=== PATIENT | female | born 1960 | race Caucasian/White ===

== ENCOUNTER 2021-05-17 06:55 | Day surgery (SDC) | payer OTHER, SELFPAY ==
[2021-05-11 12:23] VITALS: BMI 31.2
--- NOTE | 2021-05-16 13:56 | HO.ANESPROP2 ---
Documented by User: Ericka Long NP 05/16/21 13:57 HPI - Anesthesia Eval Consult details Narrative: 60yo F for Colonoscopy [facility] Past Medical History Medical History (Updated 05/11/21 @ 12:25 by Zulay Nur RN) Arthritis Asthma COPD (chronic obstructive pulmonary disease) COVID-19 vaccine series completed Post-operative nausea and vomiting Surgical History Surgical History (Updated 05/11/21 @ 12:20 by Zulay Nur RN) H/O colonoscopy History of total left hip replacement Hx of foot surgery Hx of hysterectomy Social History Social History Are you a primary healthcare administrative assistant to a significant other at home: No Do you presently have visiting nurse or other home services: No Patient Tobacco Use Status: Former Tobacco user Quit Date: 2011 Tobacco use type: Cigarette Use of substances other than those prescribed or required for medical reasons: No Have you been hit, kicked, punched, or otherwise hurt by someone within the past year? If so, by whom?: No Are you DNR?: No Advance Directives Information Provided: Yes (informational brochure mailed) Advance Directives on File: No Recently lost weight without trying: No Nutrition Risks: No Nutritional Risk Poor oral hygiene: No (missing tooth-upper right molar) Meds Allergies Allergy/AdvReac Type Severity Reaction Status Date / Time Seasonal Allergies Allergy Intermediate Itchy Eyes Verified 05/11/21 12:22 shellfish derived Allergy Intermediate HIVES Verified 05/17/21 07:08 [SHELLFISH DERIVED] cat dander [CAT] Allergy Mild PRURITUS, Verified 05/17/21 07:08 SNEEZING fluticasone [Advair Diskus] AdvReac Intermediate powder Verified 05/11/21 12:22 inhalers cause choking salmeterol [Advair Diskus] AdvReac Intermediate powder Verified 05/11/21 12:22 inhalers cause choking wixela AdvReac Intermediate powder Uncoded 05/11/21 12:22 inhalers cause choking Exam Exam Date and Time: May 16, 2021 1356 Height,Weight and Vital Signs: Height 5 ft 1.5 in Weight 76.204 kg Assessment and Plan Assessment Anesthesia Assessment: Chart Reviewed Documented by User: Emily Carmichael MD 05/17/21 08:50 PMFSH Past Medical History Medical History (Updated 05/11/21 @ 12:25 by Zulay Nur, ERIC) Arthritis Asthma COPD (chronic obstructive pulmonary disease) COVID-19 vaccine series completed Post-operative nausea and vomiting Family History Family history of problems with anesthesia: No Surgical History Surgical History (Updated 05/11/21 @ 12:20 by Zulay Nur RN) H/O colonoscopy History of total left hip replacement Hx of foot surgery Hx of hysterectomy History of Problems with Anesthesia: Yes (PONV with Hysterectomy) Social History Social History Are you a primary healthcare administrative assistant to a significant other at home: No Do you presently have visiting nurse or other home services: No Patient Tobacco Use Status: Former Tobacco user Quit Date: 2011 Tobacco use type: Cigarette Use of substances other than those prescribed or required for medical reasons: No Have you been hit, kicked, punched, or otherwise hurt by someone within the past year? If so, by whom?: No Are you DNR?: No Advance Directives Information Provided: Yes (informational brochure mailed) Advance Directives on File: No Recently lost weight without trying: No Nutrition Risks: No Nutritional Risk Poor oral hygiene: No (missing tooth-upper right molar) Meds Allergies Allergy/AdvReac Type Severity Reaction Status Date / Time Seasonal Allergies Allergy Intermediate Itchy Eyes Verified 05/11/21 12:22 shellfish derived Allergy Intermediate HIVES Verified 05/17/21 07:08 [SHELLFISH DERIVED] cat dander [CAT] Allergy Mild PRURITUS, Verified 05/17/21 07:08 SNEEZING fluticasone [Advair Diskus] AdvReac Intermediate powder Verified 05/11/21 12:22 inhalers cause choking salmeterol [Advair Diskus] AdvReac Intermediate powder Verified 05/11/21 12:22 inhalers cause choking wixela AdvReac Intermediate powder Uncoded 05/11/21 12:22 inhalers cause choking Exam Height,Weight and Vital Signs: Height 5 ft 1.5 in Weight 76.204 kg Vital Signs Temp Pulse Resp BP Pulse Ox 97.7 F 85 18 142/87 H 94 05/17/21 07:20 05/17/21 07:20 05/17/21 07:20 05/17/21 07:20 05/17/21 07:20 Airway Mallampati Class: II TM Dist: >3cm Neck ROM: Full Loose/Missing/Broken Teeth: Yes (Missing one) Heart: RRR Lungs: CTAB Assessment and Plan Assessment Anesthesia Assessment: Anesthesia Plan Discussed Final Anesthetic Review Family History of Problems with Anesthesia: No History of Problems with Anesthesia: Yes (PONV with Hysterectomy) NPO: Yes ASA Class: II Final Preanesthetic Review: No Changes in Pt Med Stat, Meds/Allgs Chart Reviewed, Consent Obtained/Reviewed and Anes Risks/Benef Reviewed Patient Risk: Low Procedure Risk: Low Assessment/Block/Sedation in SS: Assess/Block/Sedation-SS Anesthetic Plan Anesthetic Plan: MAC: Disposition: Standard PACU
--- NOTE | 2021-05-17 07:18 | PC.NURSE ---
called for a resp treatment exp wheezing throughout. patient also stated she had epigastric pain last week and yesterday. none this am. patient states she drinks water and takes tums and it goes away. had a stress test in the past for it with no problems.
[2021-05-17 07:20] VITALS: BP 142/87; PULSE 85; RESP 18; TEMP 36.5; O2SAT 94
[2021-05-17] MEDS: Albuterol Sulfate (0.083%) 2.5 MG/3 ML VIAL.NEB INHALE (07:26)
--- NOTE | 2021-05-17 07:27 | PC.NURSE ---
receiving resp treatment
[2021-05-17 07:28] VITALS: PULSE 83; O2SAT 97
[2021-05-17] MEDS: Lactated Ringers 1,000 ML 100 ML IVCONT (07:40)
--- NOTE | 2021-05-17 08:16 | MHC.SHP ---
Pre-Procedural Eval Section A Date of Service: 05/17/21 Section B Chief Complaint: screening Details of Present Illness: screening Relevant Family History (Specify if Yes): No Relevant Social History: None Present Medications: see Short Stay Collaborative assessment Medical History: No relevant PMH History of Previous Operations: No relevant previous surgery Allergies: Allergies Allergy/AdvReac Type Severity Reaction Status Date / Time Seasonal Allergies Allergy Intermediate Itchy Eyes Verified 05/11/21 12:22 shellfish derived Allergy Intermediate HIVES Verified 05/17/21 07:08 [SHELLFISH DERIVED] cat dander [CAT] Allergy Mild PRURITUS, Verified 05/17/21 07:08 SNEEZING fluticasone [Advair Diskus] AdvReac Intermediate powder Verified 05/11/21 12:22 inhalers cause choking salmeterol [Advair Diskus] AdvReac Intermediate powder Verified 05/11/21 12:22 inhalers cause choking wixela AdvReac Intermediate powder Uncoded 05/11/21 12:22 inhalers cause choking Review of Systems Sugical H&P ROS: Negative: Constitution, Cardiovascular, Respiratory, Neurological, Psychiatric, Hem-Onc, Allergic/Immunologic, Gastrointestinal, Genitourinary, Musculoskeletal, Integumentary, Endocrine and Eyes/Ears/Nose/Throat Exam Surgical H&P Exam: Normal: HEENT Plan Diagnosis/Plan: Unchanged I have reviewed the history and physical and performed a pertinent physical examination on my patient. No changes have occurred unless specified.
[2021-05-17 08:46] VITALS: BP 109/60; PULSE 91; RESP 15; TEMP 36.2; O2SAT 95
[2021-05-17 09:01] VITALS: BP 112/78; PULSE 75; RESP 17; TEMP 36.2; O2SAT 95
--- NOTE | 2021-05-17 11:41 | OP_ITS ---
SURGEON: Carlos Alexis MD INDICATIONS: Colon cancer screening and prior history of adenomatous colon polyps. PREOPERATIVE DIAGNOSIS: POSTOPERATIVE DIAGNOSIS: PROCEDURE PERFORMED: Colonoscopy to the terminal ileum with biopsy. ESTIMATED BLOOD LOSS: COMPLICATIONS: ANESTHESIA: ASSISTANTS: SPECIMENS: MEDICATIONS: Monitored anesthesia care. DESCRIPTION OF PROCEDURE: History and physical performed. The risks and benefits of the procedure were explained to the patient. Informed consent was obtained. The patient was placed in the left lateral decubitus position. A digital rectal exam was performed and was found to be normal. The Olympus pediatric video colonoscope was introduced into the rectum and advanced to the cecum without difficulty. The cecum was identified by transillumination, palpation, and identification of ileocecal valve. Examination was performed and the scope was removed. She tolerated the procedure well and was taken to recovery area in stable condition. FINDINGS: The terminal ileum was examined and appeared normal. The visualized colonic mucosa was normal. The quality of the prep was good. At 80 cm from the anal verge, was a less than 5 mm sessile polyp. This was removed with biopsy forceps. No other polyps were identified. Retroflexed examination showed some internal hemorrhoids. IMPRESSION: Colon polyp. RECOMMENDATION: Follow up the biopsy results. MD ALYCIA Rowe/MARY JANE / [id number]
== END 2021-05-17 09:45 | disposition home or self-care (01) ==
PROVIDERS: PCP Internal Medicine; Visit Provider Internal Medicine Gastroenterology
PROC: 0DJD8ZZ Inspection of Lower Intestinal Tract, Via Natural or Artificial Opening Endoscopic (ICD-10-PCS; CPT 45378; principal; 2021-05-17 08:20)
DX: Z12.11 Encounter for screening for malignant neoplasm of colon (principal); Z86.010 Personal history of colon polyps; D12.4 Benign neoplasm of descending colon; K64.8 Other hemorrhoids; J44.9 Chronic obstructive pulmonary disease, unspecified; Z87.891 Personal history of nicotine dependence; Z79.899 Other long term (current) drug therapy
CPT/HCPCS: 45380; 88305; 94640

== ENCOUNTER 2021-12-05 06:35 | Outpatient (REF) | payer OTHER, SELFPAY ==
[2021-12-05 11:12] LABS: MANUAL DIFF FLAG NO
[2021-12-05 11:20] LABS: Basophils Absolute Auto 0.1 X10*3/uL (0.0-0.2); Eosinophils Absolute Auto 0.8 X10*3/uL (0.0-0.4); Hematocrit 46.7 % (37.0-47.0); Hemoglobin 14.7 g/dl (12.0-16.0); Imm Gran Abs Auto 0.02 X10*3/uL (0.00-0.03); Imm Gran Pct Auto 0.3 % (0.0-0.4); Lymphocytes Absolute Auto 2.2 X10*3/uL (1.2-4.9); Mean Corpuscular HGB Conc 31.5 g/dl (31.0-35.0); Mean Corpuscular Hemoglobin 29.7 pg (27.0-33.0); Mean Corpuscular Volume 94.3 fL (80.0-98.0); Mean Platelet Volume 9.8 fL (9.4-12.3); Monocytes Absolute Auto 0.5 X10*3/uL (0.1-1.2); Monocytes Percent Auto 7.4 % (2-11); Neutrophils Absolute Auto 3.3 x10*3/uL (2.0-8.3); Neutrophils Percent Auto 48.3 % (45-73); Platelet Count 316 X10*3/uL (160-400); Red Blood Count 4.95 X10*6/uL (4.20-5.50); White Blood Count 6.9 X10*3/uL (4.8-10.8)
[2021-12-05 12:10] LABS: Alanine Aminotransferase 30 U/L (0-31); Alkaline Phosphatase 53 U/L (39-117); Anion Gap 15 (12-20); Aspartate Amino Transferase 20 U/L (5-31); Bilirubin Total 0.2 mg/dL (0.0-1.0); Blood Urea Nitrogen 12 mg/dL (9-16); Calcium 9.2 mg/dL (8.4-10.2); Carbon Dioxide 26 mmol/L (22-29); Chloride 105 mmol/L (96-108); Cholesterol 181 mg/dL; Estimated Glomerular Filt Rate > 60; Glucose Fasting 100 mg/dL (60-99); HDL Cholesterol 55 mg/dL; LDL Cholesterol Calculated 104 mg/dl; Potassium 4.3 mmol/L (3.3-5.1); Sodium 142 mmol/L (135-145); Total Protein 6.6 g/dL (6.5-8.0); Triglycerides 114 mg/dL
== END 2021-12-05 06:36 | disposition home or self-care (01) ==
LOC: HO.HMGCLDS 06:35
PROVIDERS: Visit Provider Internal Medicine
DX: Z00.01 Encounter for general adult medical examination with abnormal findings (principal); E66.09 Other obesity due to excess calories; R06.89 Other abnormalities of breathing; Z91.09 Other allergy status, other than to drugs and biological substances
CPT/HCPCS: 36415; 80053; 80061; 84443; 85025

== ENCOUNTER 2022-06-28 11:53 | Outpatient (REF) | payer OTHER, SELFPAY ==
--- NOTE | ~2022-06-28 | XR_ITS ---
EXAMINATION: XR CHEST CLINICAL INFORMATION: Wheezing COMPARISON: Previous chest x-ray July 2018 TECHNIQUE: 2 views of the chest were obtained. FINDINGS: No significant abnormality is noted involving the heart, lungs, mediastinum, bony thorax or soft tissues. XR/XR chest 2V IMPRESSION: Unremarkable examination.
== END 2022-06-28 11:54 | disposition home or self-care (01) ==
LOC: HO.HMGCX 11:53
PROVIDERS: PCP Internal Medicine; Visit Provider Internal Medicine
DX: R06.2 Wheezing (principal)
CPT/HCPCS: 71046

== ENCOUNTER 2022-09-18 06:02 | Inpatient (IN) | payer OTHER, SELFPAY ==
[2022-09-18] VITALS (12 sets, daily range): BP systolic 124–173; BP diastolic 62–90; PULSE 70–122; RESP 18–26; TEMP 36.6–37.6; O2SAT 86–97; BMI 30.2
--- NOTE | 2022-09-18 | ECG_ITS ---
Test Reason : ASTHMA Blood Pressure : / mmHG Vent. Rate : 105 BPM Atrial Rate : 105 BPM P-R Int : 140 ms QRS Dur : 080 ms QT Int : 340 ms P-R-T Axes : 077 076 024 degrees QTc Int : 449 ms Sinus tachycardia Nonspecific ST and T wave abnormality Abnormal ECG When compared with ECG of 08-OCT-2017 12:28, Vent. rate has increased BY [address] now depressed in Inferior leads ST now depressed in Anterior leads Referred By: Generic ED Physician Electronically Signed By:JONAS SHEARER
--- NOTE | ~2022-09-18 | XR_ITS ---
EXAMINATION: XR CHEST CLINICAL INFORMATION: Shortness of breath COMPARISON: 06/28/2022 TECHNIQUE: Frontal view of the chest was obtained. FINDINGS: No acute finding. No obvious failure or infiltrate. There is no effusion. The cardiac silhouette is comparable. The hilar regions do not appear pathologically enlarged. XR/XR chest 1V IMPRESSION: No acute finding.
--- NOTE | 2022-09-18 06:18 | ED_ITS ---
HPI - SOB/Dyspnea General Chief Complaint: Dyspnea Stated Complaint: sob Time Seen by Provider: 09/18/22 06:17 Source: patient Mode of arrival: EMS History of Present Illness HPI Narrative: 61-year-old female arrives via EMS, she received nebulized treatments/steroids/Mag sulfate and route and states that she is been having ?flu-like symptoms for 1 week? and then became worsening shortness of breath over the past 24 hours and feel somewhat improved after the interventions by EMS and feels like she may have been having intermittent fevers and chills and has had a productive cough otherwise denies any nausea or vomiting or urinary sym ptoms. Related Data Previous Rx's Medication Instructions Recorded cholecalciferol (vitamin D3) 25 25 mcg PO DAILY #90 caps 08/17/20 mcg (1,000 unit) capsule albuterol sulfate 90 mcg/actuation 1 inh inhalation QID PRN shortness 09/21/21 aerosol inhaler of breath or wheezing #6.7 grams cetirizine 10 mg tablet (Zyrtec) 10 mg PO DAILY 90 days #90 tabs 12/02/21 azithromycin 250 mg tablet 250 mg PO ONCE 5 days #6 tabs 12/23/21 Symbicort 160 mcg-4.5 2 puff inhalation BID 30 days 06/28/22 mcg/actuation HFA aerosol inhaler #10.2 grams (budesonide-formoterol) albuterol sulfate 90 mcg/actuation 1 inh inhalation QID PRN shortness 06/30/22 aerosol inhaler (Ventolin HFA) of breath or wheezing 30 days #6.7 grams Allergies Allergy/AdvReac Type Severity Reaction Status Date / Time Seasonal Allergies Allergy Intermediate Itchy Eyes Verified 06/28/22 11:35 shellfish derived Allergy Intermediate HIVES Verified 06/28/22 11:35 [SHELLFISH DERIVED] cat dander [CAT] Allergy Mild PRURITUS, Verified 06/28/22 11:35 SNEEZING fluticasone [Advair Diskus] AdvReac Intermediate powder Verified 06/28/22 11:35 inhalers cause choking salmeterol [Advair Diskus] AdvReac Intermediate powder Verified 06/28/22 11:35 inhalers cause choking wixela AdvReac Intermediate powder Uncoded 09/21/21 16:15 inhalers cause choking Review of Systems Review of Systems: Pertinent positives and negatives as stated in [facility] Past Medical History Source: nursing notes reviewed Medical History Arthritis Asthma COPD (chronic obstructive pulmonary disease) COVID-19 vaccine series completed Post-operative nausea and vomiting Surgical History H/O colonoscopy History of total left hip replacement Hx of foot surgery Hx of hysterectomy Family History Family History Maternal Aunt Substance use disorder Mental health disorder Social History Social History Housing: House Are you a primary team primary care physician to a significant other at home: No Do you presently have visiting nurse or other home services: No Patient Tobacco Use Status: Former Tobacco user Quit Date: 2011 Tobacco use type: Cigarette e-Cigarette/Vaping Use: Never Used service: No Current occupational status: unemployed Cognitive needs: No Hearing needs: No Vision needs: Yes Physical Exam Vital Signs: Vital Signs: Last Vital Signs Temp 98.5 F 09/18/22 06:06 Pulse 115 H 09/18/22 06:06 Resp 22 H 09/18/22 06:06 BP 141/78 H 09/18/22 06:06 Pulse Ox 91 L 09/18/22 06:06 O2 Del Method 09/18/22 06:06 Oxygen Flow Rate 4 09/18/22 06:06 BMI result Body Mass Index 30.2 VITAL SIGNS: Reviewed. GENERAL: Well developed, well nourished, in no acute distress. HEAD: Normocephalic/atraumatic EYES: PERRLA, EOMI EARS: Ext canals without abnormality, TMs non-bulging and non-erythematous NOSE: Nares patent bilateral OROPHARYNX: no oral lesions noted, posterior pharynx clear NECK: Supple, no adenopathy LUNGS: Good inspiratory effort with decreased breath sounds throughout, crackles, tachypnea, expiratory wheeze, increased work of breathing. SpO2<91> on 6 L nasal cannula CARDIOVASCULAR: Regular rate and rhythm without noted murmurs, no JVD or lower extremity edema. ABDOMEN: Soft, non-tender, non-distended with bowel sounds. MUSCULOSKELETAL: No tenderness, deformities, or effusions noted on gross inspection. EXTREMITIES: No cyanosis, clubbing or edema. SKIN: Inspection of the skin reveals no rashes NEUROLOGIC: Alert and oriented x 4. Strength and sensation to light touch were grossly intact x 4. Medical Decision Making Medical Decision Making [facility] Narrative: 0628: 61-year-old female that on review documentation it appears that this patient has chronic lung disease, will rule out pneumonia verses viral pneumonia, and doubt cardiac etiology. Labs, blood cultures, UA, chest x-ray, VBG ordered. Signed out to Dr Panchal Independent Interpretation I performed an independent interpretation of an: EKG Interpretation: Sinus tachycardia, HR-105, no STEMI, some nonspecific ST-T-wave abnormalities in the lateral leads, CT/QRS/QTC is within normal limits. Critical Care Time Critical Care Time Critical Care Time: Yes Total Critical Care Time: 30 Attestation: I personally attest to this time spent taking care of the patient. Discharge Plan Discharge Clinical Impression: Shortness of breath Patient Disposition: Still a Patient Prescriptions: No Action cholecalciferol (vitamin D3) 25 mcg (1,000 unit) capsule 25 mcg PO DAILY Qty: 90 0RF albuterol sulfate [Ventolin HFA] 90 mcg/actuation HFA aerosol inhaler 1 inh inhalation QID PRN (Reason: shortness of breath or wheezing) 30 Days Qt y: 6.7 3RF azithromycin 250 mg tablet 250 mg PO ONCE 5 Days Qty: 6 0RF Rx Instructions: Take 2 tablets today then 1 daily budesonide-formoterol [Symbicort] 160-4.5 mcg/actuation HFA aerosol inhaler 2 puff inhalation BID 30 Days Qty: 10.2 3RF albuterol sulfate 90 mcg/actuation HFA aerosol inhaler 1 inh inhalation QID PRN (Reason: shortness of breath or wheezing) Qty: 6.7 1RF cetirizine [Zyrtec] 10 mg tablet 10 mg PO DAILY 90 Days Qty: 90 1RF
[2022-09-18 06:34] LABS: MANUAL DIFF FLAG NO
[2022-09-18 06:35] LABS: Basophils Absolute Auto 0.1 X10*3/uL (0.0-0.2); Basophils Percent Auto 0.4 % (0-2); Eosinophils Absolute Auto 0.2 X10*3/uL (0.0-0.4); Eosinophils Percent Auto 1.4 % (0-4); Hematocrit 50.2 % (37.0-47.0); Hemoglobin 16.5 g/dl (12.0-16.0); Imm Gran Abs Auto 0.06 X10*3/uL (0.00-0.03); Imm Gran Pct Auto 0.4 % (0.0-0.4); Lymphocytes Absolute Auto 1.9 X10*3/uL (1.2-4.9); Lymphocytes Percent Auto 12.7 % (20-40); Mean Corpuscular HGB Conc 32.9 g/dl (31.0-35.0); Mean Corpuscular Hemoglobin 31.2 pg (27.0-33.0); Mean Corpuscular Volume 94.9 fL (80.0-98.0); Mean Platelet Volume 9.5 fL (9.4-12.3); Monocytes Absolute Auto 0.7 X10*3/uL (0.1-1.2); Monocytes Percent Auto 4.5 % (2-11); Neutrophils Absolute Auto 12.3 x10*3/uL (2.0-8.3); Neutrophils Percent Auto 80.6 % (45-73); Platelet Count 255 X10*3/uL (160-400); Red Blood Count 5.29 X10*6/uL (4.20-5.50); Red Cell Distribution Width 13.2 % (11.0-16.0); White Blood Count 15.3 X10*3/uL (4.8-10.8)
[2022-09-18 06:38] LABS: Venous Blood Gas Refer to POC result
[2022-09-18 06:38] LABS: VBG HCO3 24 mmol/L (22-26); VBG pCO2 42 mmHg; VBG pH 7.36 (7.32-7.43); VBG pO2 52 mmHg
[2022-09-18 06:59] LABS: Troponin-I High Sensitivity 3.7 ng/L (<3.5-17.0)
[2022-09-18 07:03] LABS: Alanine Aminotransferase 25 U/L (0-31); Albumin Level 4.7 g/dL (3.5-5.0); Alkaline Phosphatase 54 U/L (39-117); Anion Gap 17 (12-20); Aspartate Amino Transferase 20 U/L (5-31); Bilirubin Total 0.9 mg/dL (0.0-1.0); Blood Urea Nitrogen 6 mg/dL (9-16); Calcium 9.5 mg/dL (8.4-10.2); Carbon Dioxide 26 mmol/L (22-29); Chloride 106 mmol/L (96-108); Creatinine Clr Calc Pharmacy 75.6; Estimated Glomerular Filt Rate > 60; Glucose Random 142 mg/dL (60-115); Potassium 4.2 mmol/L (3.3-5.1); Sodium 145 mmol/L (135-145); Total Protein 7.2 g/dL (6.5-8.0)
[2022-09-18 07:12] LABS: Influenza A PCR NEGATIVE (Negative); Influenza B PCR NEGATIVE (Negative); Resp Syncy Virus RNA Qual PCR NEGATIVE (Negative); SARS COV2 PCR INHOUSE NEGATIVE (Negative)
--- NOTE | 2022-09-18 07:19 | PC.NURSE ---
pt alert and oriented, skin pwd, respirations slightly increased at about 24-26, ls expeditor wheezing through out all holden, pt is having intermitted productive cough and pt keeps saying she just cant get a good breath in, it feels like it stops pt oxygen does drop to 86% on room air but goes right back with supplemental oxygen up tp 94% on 4l. sinus tach on the monitor.
--- NOTE | 2022-09-18 07:42 | PC.NURSE ---
Patient desating on 4L NS, switched to oxymask and O2 increased to 5L
[2022-09-18 08:46] LABS: Lactic Acid 1.2 mmol/L (0.5-2.0)
[2022-09-18 09:06] LABS: D Dimer High Sensitivity < 150 NG/ML
--- NOTE | 2022-09-18 10:23 | PHA.MEDREC ---
Pharmacy Consult ? Medication Reconciliation Pharmacy has completed the medication reconciliation.
--- NOTE | 2022-09-18 12:14 | PM.IMHP ---
History of Present Illness Date of Service: 09/18/22 Attending physician on admission: Jesse Mosher Chief Complaint: cough, wheezing, sob 61-year-old female with history of osteoarthritis, former smoker, and moderate persistent asthma/COPD presented to the ED via EMS for evaluation of flu-like symptoms. She states 2 days ago she developed symptoms including myalgias, nasal congestion, rhinorrhea, chest congestion, sore throat, and cough with yellow sputum production. Yesterday reports symptoms were worsening with development of shortness of breath and wheezing. Early this morning, reports oximetry of 83% on room air and called EMS. On arrival, found to be hypoxic to 86% and placed on 5 L supplemental O2 via OxyMask. She was also tachycardic to 122, tachypneic to 26, no hypotension. She did receive DuoNeb treatment, 125 mg IV methylprednisolone, and IV magnesium in the ambulance. She has a leukocytosis of 15.3, D-dimer < 150. Renal function normal, electrolyte levels normal. VBG within normal limits. Found to be negative for influenza a, COVID-19, and RSV. Chest x-ray negative for any acute cardiopulmonary abnormality. EKG showing sinus tachycardia, rate [address]/T-wave abnormality. She denies any fevers, chills, abdominal pain, nausea, vomiting, diarrhea, lightheadedness, chest pain. Denies any known sick contacts. Review of Systems Review of Systems: Yes all other systems are reviewed and are negative [facility] Medical History (Updated 09/18/22 @ 12:29 by CARA Dietz) Arthritis Asthma COPD (chronic obstructive pulmonary disease) COVID-19 vaccine series completed Former smoker Post-operative nausea and vomiting Shortness of breath Family History Maternal Aunt Substance use disorder Mental health disorder Surgical History H/O colonoscopy History of total left hip replacement Hx of foot surgery Hx of hysterectomy Social History Housing: House Are you a primary account executive healthcare to a significant other at home: No Do you presently have visiting nurse or other home services: No Alcohol intake: current Alcohol intake frequency: a few times a month Patient Tobacco Use Status: Former Tobacco user Quit Date: 2011 Tobacco use type: Cigarette Smoked in Last 30 Days: No e-Cigarette/Vaping Use: Never Used Use of substances other than those prescribed or required for medical reasons: No Advance Directives: No Patient : No service: No Current occupational status: unemployed Cognitive needs: No Hearing needs: No Vision needs: Yes Meds Allergies Allergy/AdvReac Type Severity Reaction Status Date / Time Seasonal Allergies Allergy Intermediate Itchy Eyes Verified 06/28/22 11:35 shellfish derived Allergy Intermediate HIVES Verified 06/28/22 11:35 [SHELLFISH DERIVED] cat dander [CAT] Allergy Mild PRURITUS, Verified 06/28/22 11:35 SNEEZING fluticasone [Advair Diskus] AdvReac Intermediate powder Verified 06/28/22 11:35 inhalers cause choking salmeterol [Advair Diskus] AdvReac Intermediate powder Verified 06/28/22 11:35 inhalers cause choking wixela AdvReac Intermediate powder Uncoded 09/21/21 16:15 inhalers cause choking Home Medications Medication Instructions Recorded Confirmed Last Taken Type multivitamin (Daily Multi-Vitamin 1 tab PO DAILY 09/18/22 09/18/22 09/17/22 History tablet) Physical Exam Vital Signs and Narrative: Vital Signs: Last Vital Signs Temp 98.0 F 09/18/22 09:29 Pulse 98 09/18/22 10:06 Resp 23 H 09/18/22 09:29 BP 124/88 09/18/22 09:29 Pulse Ox 93 09/18/22 10:06 O2 Del Method 09/18/22 10:06 O2 Flow Rate 5 09/18/22 10:06 Oxygen Flow Rate 4 09/18/22 06:06 BMI result Body Mass Index 30.2 Constitutional - Awake and Alert, No apparent distress Eyes - PERRLA, EOMI Cardiovascular - S1S2, RRR, No edema Respiratory - Normal lung expansion, Normal respiratory effort, No respiratory distress on 5L supplemental O2 via oxymask, coarse breath sounds bilaterally with diffuse expiratory wheezing Gastrointestinal - NT / ND; +BS; No rebound or guarding Extremities - no calf tenderness bilaterally, no swelling Skin - Warm/Dry Neurological - Alert & oriented x3 Psychological - Appropriate affect Results Labs 09/18/22 06:27 09/18/22 06:27 Labs: Laboratory Results - last 24 hr 09/18/22 09/18/22 09/18/22 06:27 06:27 06:27 MCV 94.9 MCH 31.2 MCHC 32.9 RDW 13.2 Plt Count 255 MPV 9.5 Immature Gran % (Auto) 0.4 Neut % (Auto) 80.6 H Lymph % (Auto) 12.7 L Stephens % (Auto) 4.5 Eos % (Auto) 1.4 Baso % (Auto) 0.4 Lymph # (Auto) 1.9 Stephens # (Auto) 0.7 Eos # (Auto) 0.2 Baso # (Auto) 0.1 Abs Immat Gran (auto) 0.06 H Absolute Neuts (auto) 12.3 H Absolute Nucleated RBC 0.000 Nucleated RBC % (auto) 0.0 D-Dimer High Sensitivty VBG pH VBG pCO2 VBG pO2 VBG HCO3 VBG O2 Saturation VBG Base Excess Anion Gap 17 Estim Creat Clear Calc 75.6 Estimated GFR > 60 Random Glucose 142 H Lactic Acid Calcium 9.5 Total Bilirubin 0.9 AST 20 ALT 25 Alkaline Phosphatase 54 Troponin I High Sens 3.7 Total Protein 7.2 Albumin 4.7 Influenza Type A (PCR) Influenza Type B (PCR) RSV RNA Qual (PCR) SARS-CoV-2 RNA (RT-PCR) 09/18/22 09/18/22 09/18/22 06:27 06:31 06:46 MCV MCH MCHC RDW Plt Count MPV Immature Gran % (Auto) Neut % (Auto) Lymph % (Auto) Stephens % (Auto) Eos % (Auto) Baso % (Auto) Lymph # (Auto) Stephens # (Auto) Eos # (Auto) Baso # (Auto) Abs Immat Gran (auto) Absolute Neuts (auto) Absolute Nucleated RBC Nucleated RBC % (auto) D-Dimer High Sensitivty VBG pH 7.36 VBG pCO2 42 VBG pO2 52 VBG HCO3 24 VBG O2 Saturation 81.0 VBG Base Excess -1.0 Anion Gap Estim Creat Clear Calc Estimated GFR Random Glucose Lactic Acid 1.2 Calcium Total Bilirubin AST ALT Alkaline Phosphatase Troponin I High Sens Total Protein Albumin Influenza Type A (PCR) NEGATIVE Influenza Type B (PCR) NEGATIVE RSV RNA Qual (PCR) NEGATIVE SARS-CoV-2 RNA (RT-PCR) NEGATIVE 09/18/22 08:34 MCV MCH MCHC RDW Plt Count MPV Immature Gran % (Auto) Neut % (Auto) Lymph % (Auto) Stephens % (Auto) Eos % (Auto) Baso % (Auto) Lymph # (Auto) Stephens # (Auto) Eos # (Auto) Baso # (Auto) Abs Immat Gran (auto) Absolute Neuts (auto) Absolute Nucleated RBC Nucleated RBC % (auto) D-Dimer High Sensitivty < 150 VBG pH VBG pCO2 VBG pO2 VBG HCO3 VBG O2 Saturation VBG Base Excess Anion Gap Estim Creat Clear Calc Estimated GFR Random Glucose Lactic Acid Calcium Total Bilirubin AST ALT Alkaline Phosphatase Troponin I High Sens Total Protein Albumin Influenza Type A (PCR) Influenza Type B (PCR) RSV RNA Qual (PCR) SARS-CoV-2 RNA (RT-PCR) Imaging Radiologist's Impressions: Impressions Chest X-Ray 09/18/22 06:53 IMPRESSION: No acute finding. Assessment and Plan (1) Asthma with COPD with exacerbation: Status: Acute (2) Acute hypoxemic respiratory failure: Status: Acute Plan 61-year-old female with history of osteoarthritis, former smoker, and moderate persistent asthma/COPD admitted for acute asthma/COPD exacerbation with acute hypoxemic respiratory failure. # acute hypoxemic respiratory failure- secondary to asthma/COPD exacerbation -CXR negative for pneumonia -D-dimer negative -continue supplemental O2 to maintain oximetry around 92% -trait asthma/COPD exacerbation below # acute moderate persistent asthma/COPD exacerbation- related to viral URI -CXR negative for pneumonia -negative for COVID-19, influenza, RSV. Full viral respiratory panel pending -received 125 mg IV methylprednisolone loading dose. Continue methylprednisolone IV 60 mg b.i.d. -DuoNebs q.4h while awake -albuterol q.2h p.r.n. -azithromycin 500 mg IV daily x3 days given productive cough -tachycardia and tachypnea likely related to respiratory distress and albuterol usage, not sepsis -continue Symbicort DVT prophylaxis-Lovenox Full code Patient requires inpatient stay of at least 2 midnights for management of acute asthma/COPD exacerbation with acute hypoxemic respiratory failure requiring supplemental O2, IV steroids and close monitoring for pulmonary decompensation Time Spent With Patient Time: Total time managing care of this patient today ____ minutes. Quality Stroke Does the patient have a stroke diagnosis?: No VTE Prior VTE?: No VTE Risk Level:: Medical - moderate - high VTE Device Contraindication: Treatment Not Indicated VTE Drug Contraindication: N/A - Med Ordered
[2022-09-18] MEDS: Azithromycin 500 MG in 0.9 % Sodium Chloride 250 ML 125 MG IV (13:08)
[2022-09-18] MEDS: Enoxaparin Sodium 40 MG/0.4 ML SYRINGE SUBCUT (13:08)
--- NOTE | 2022-09-18 13:28 | PC.NURSE ---
pt used the commode and with any small movement pt does get very short of breath and sats dropped slightly as well from 93-91% on the oxymask on 5l
--- NOTE | 2022-09-18 14:40 | PC.NURSE ---
report given to [facility] rn
[2022-09-18 14:58] LABS: Adenovirus PCR Not Detected (Not Detect.); Bordetella parapertussis PCR Not Detected (Not Detect.); Bordetella pertussis PCR Not Detected (Not Detect.); Chlamydia pneumoniae PCR Not Detected (Not Detect.); Coronavirus 229E PCR Not Detected (Not Detect.); Coronavirus HKU1 PCR Not Detected (Not Detect.); Coronavirus NL63 PCR Not Detected (Not Detect.); Coronavirus OC43 PCR Not Detected (Not Detect.); Human metapneumovirus PCR Not Detected (Not Detect.); Influenza A PCR Not Detected (Not Detect.); Influenza B PCR Not Detected (Not Detect.); Mycoplasma pneumoniae PCR Not Detected (Not Detect.); Parainfluenza 1 PCR Not Detected (Not Detect.); Parainfluenza 2 PCR Not Detected (Not Detect.); Parainfluenza 3 PCR Not Detected (Not Detect.); Parainfluenza 4 PCR Not Detected (Not Detect.); RSV PCR Not Detected (Not Detect.); Rhino/Enterovirus PCR Detected (Not Detect.); SARS-CoV-2 PCR Not Detected (Not Detect.)
[2022-09-18] MEDS: 0.9 % Sodium Chloride Flush 3 ML SYRINGE IVFLUSH (16:40)
[2022-09-18] MEDS: ondansetron HCL 4 MG/2 ML VIAL IVPUSH (20:19)
[2022-09-19] VITALS (11 sets, daily range): BP systolic 107–149; BP diastolic 58–89; PULSE 69–98; RESP 18–24; TEMP 36.6–37.1; O2SAT 92–98
[2022-09-19] MEDS: 0.9 % Sodium Chloride Flush 3 ML SYRINGE IVFLUSH ×2 (00:03→08:36)
[2022-09-19] MEDS: Albuterol Sulfate (0.083%) 2.5 MG/3 ML VIAL.NEB INHALE (02:44)
[2022-09-19] MEDS: Acetaminophen 325 MG TABLET 650 MG PO ×2 (05:21→11:37)
[2022-09-19 06:17] LABS: MANUAL DIFF FLAG NO
[2022-09-19 06:56] LABS: Basophils Percent Auto 0.2 % (0-2); Eosinophils Percent Auto 0.1 % (0-4); Hemoglobin 15.5 g/dl (12.0-16.0); Imm Gran Abs Auto 0.08 X10*3/uL (0.00-0.03); Imm Gran Pct Auto 0.5 % (0.0-0.4); Lymphocytes Percent Auto 12.8 % (20-40); Mean Corpuscular HGB Conc 32.3 g/dl (31.0-35.0); Mean Corpuscular Hemoglobin 31.3 pg (27.0-33.0); Mean Corpuscular Volume 96.8 fL (80.0-98.0); Mean Platelet Volume 10.2 fL (9.4-12.3); Monocytes Absolute Auto 1.3 X10*3/uL (0.1-1.2); Monocytes Percent Auto 8.8 % (2-11); Neutrophils Absolute Auto 11.8 x10*3/uL (2.0-8.3); Neutrophils Percent Auto 77.6 % (45-73); Platelet Count 291 X10*3/uL (160-400); Red Blood Count 4.96 X10*6/uL (4.20-5.50); Red Cell Distribution Width 13.6 % (11.0-16.0); White Blood Count 15.2 X10*3/uL (4.8-10.8)
[2022-09-19 07:02] LABS: Anion Gap 15 (12-20); Blood Urea Nitrogen 11 mg/dL (9-16); Calcium 9.2 mg/dL (8.4-10.2); Carbon Dioxide 28 mmol/L (22-29); Chloride 102 mmol/L (96-108); Creatinine Clr Calc Pharmacy 75.6; Estimated Glomerular Filt Rate > 60; Glucose Random 92 mg/dL (60-115); Magnesium 2.4 mg/dL (1.6-2.6); Potassium 4.3 mmol/L (3.3-5.1); Sodium 141 mmol/L (135-145)
[2022-09-19] MEDS: Multivitamin TABLET 1 TAB PO (08:36)
--- NOTE | 2022-09-19 08:47 | MHC.CM.PN ---
CM met with Patient at [facility]. Patient lives alone in an apartment on the second floor, part of a 2 family house, with her Step Mother/HCP/Sera living on the first floor. Patient is on 5L O2 presently but does not have home O2. Patient required no services nor DME [employer] and home self care is the goal. JEANNIE has initiated and will follow for dc planning. Patient has received covid vax x4 and her PCP is Salome Myers.
[2022-09-19] MEDS: Azithromycin 500 MG in 0.9 % Sodium Chloride 250 ML 125 MG IV (12:46)
--- NOTE | 2022-09-19 16:14 | HO.PM.IMPN ---
Subjective Subjective Date of Service: 09/19/22 Interval History: cough, wheezing, sob Review of Systems still sob with minimum excersion has cough mosltly dry, no fever Physical Exam Vital Signs: Vital Signs: Last Vital Signs Temp 98.3 F 09/19/22 15:23 Pulse 69 09/19/22 15:23 Resp 20 09/19/22 15:23 BP 110/66 09/19/22 15:23 Pulse Ox 95 09/19/22 15:23 O2 Del Method 09/19/22 15:23 O2 Flow Rate 5 09/19/22 11:19 Oxygen Flow Rate 4 09/18/22 06:06 BMI result Body Mass Index 30.2 Appearance: Alert.? Oriented X3.?sob cvs: rrr, [id number] , no murmur res: air entry diminshed , b/l exp wheezin abd: no rebound or guarding ,nt, bs present. ext pulses present , no cyanosis. neuro: axo3 , nonfocal. Objective Data Active Medications Acetaminophen (Acetaminophen 325 Mg Tablet) 650 mg PO Q6H PRN PRN Reason: Pain, Mild (Pain Scale 1-3) Last Admin: 09/19/22 11:37 Dose: 650 mg Documented By: BINDU Albuterol Sulfate (Albuterol Sulfate (0.083%) 2.5 Mg/3 Ml Vial.Neb) 2.5 mg INHALE Q2H PRN PRN Reason: Shortness of Breath/Wheezing Last Admin: 09/19/22 02:44 Dose: 2.5 mg Documented By: SHERRILL Albuterol Sulfate 2.5 mg/ (Ipratropium [place] 0.5 mg) 0 mg INHALE RQ4H WHILE AWAKE [facility] Last Admin: 09/19/22 11:50 Dose: 2.5 each Documented By: ANIL Docusate Sodium (Docusate Sodium 100 Mg Capsule) 100 mg PO DAILY PRN PRN Reason: Constipation Enoxaparin Sodium (Enoxaparin Sodium 40 Mg/0.4 Ml Syringe) 40 mg SUBCUT Q24H [facility] Last Admin: 09/19/22 12:48 Dose: Not Given Documented By: BINDU Non-Admin Reason: Patient Refused Fluticasone/Vilanterol (Fluticasone/Vilanterol 200/25 Blst.W.Dev) 1 puff INHALE DAILY [facility] Last Admin: 09/19/22 08:12 Dose: Not Given Documented By: ROHINI Non-Admin Reason: Med Not Available Azithromycin 500 mg/ Sodium (Chloride) 250 mls @ 125 mls/hr IV Q24H [facility] Stop: 09/20/22 14:14 Last Infusion: 09/19/22 15:34 Dose: 0 mls/hr Documented By: BINDU Methylprednisolone Sodium Succinate (Methylprednisolone Sod Succ 125 Mg/2 Ml Vial) 60 mg IVPUSH Q12H [facility] Multivitamins/Vitamin C (Multivitamin Tablet) 1 tab PO DAILY [facility] Last Admin: 09/19/22 08:36 Dose: 1 tab Documented By: BINDU Ondansetron HCl (Ondansetron Hcl 4 Mg/2 Ml Vial) 4 mg IVPUSH Q8H PRN PRN Reason: Nausea and Vomiting Last Admin: 09/18/22 20:19 Dose: 4 mg Documented By: BRANDON Sodium Chloride (0.9 % Sodium Chloride Flush 3 Ml Syringe) 3 ml IVFLUSH QSHIFT [facility] Last Admin: 09/19/22 15:34 Dose: Not Given Documented By: BINDU Non-Admin Reason: Previously Administered Labs 09/19/22 06:01 09/19/22 06:01 Labs: Laboratory Results - last 24 hr 09/19/22 09/19/22 06:01 06:01 MCV 96.8 MCH 31.3 MCHC 32.3 RDW 13.6 Plt Count 291 MPV 10.2 Immature Gran % (Auto) 0.5 H Neut % (Auto) 77.6 H Lymph % (Auto) 12.8 L [place] % (Auto) 8.8 Eos % (Auto) 0.1 Baso % (Auto) 0.2 Lymph # (Auto) 2.0 Pender # (Auto) 1.3 H Eos # (Auto) 0.0 Baso # (Auto) 0.0 Abs Immat Gran (auto) 0.08 H Absolute Neuts (auto) 11.8 H Absolute Nucleated RBC 0.000 Nucleated RBC % (auto) 0.0 Anion Gap 15 Estim Creat Clear Calc 75.6 Estimated GFR > 60 Random Glucose 92 Calcium 9.2 Magnesium 2.4 Microbiology Microbiology Results: Microbiology 09/18/22 06:46 Blood Culture - Preliminary Blood - Venous No growth after 24 hours. 09/18/22 06:46 Blood Culture - Preliminary Blood - Venous No growth after 24 hours. Assessment and Plan (1) Acute hypoxemic respiratory failure: Status: Acute (2) Asthma with COPD with exacerbation: Status: Acute Plan 61-year-old female with history of osteoarthritis, former smoker, and moderate persistent asthma/COPD admitted for acute asthma/COPD exacerbation with acute hypoxemic respiratory failure. # acute hypoxemic respiratory failure- secondary to asthma/COPD exacerbation -CXR negative for pneumonia -D-dimer negative -continue supplemental O2 to maintain oximetry around 92% -trait asthma/COPD exacerbation below # acute moderate persistent asthma/COPD exacerbation- related to viral URI -CXR negative for pneumonia -negative for COVID-19, influenza, RSV.? Full viral respiratory panel pending -received 125 mg IV methylprednisolone loading dose.? Continue methylprednisolone IV 60 mg b.i.d. -DuoNebs q.4h while awake -albuterol q.2h p.r.n. -azithromycin 500 mg IV daily x3 days given productive cough -tachycardia and tachypnea likely related to respiratory distress and albuterol usage, not sepsis -continue Symbicort obesity: encouraged to lose weight DVT prophylaxis-Lovenox Full code inpatient need: management of acute asthma/COPD exacerbation with acute hypoxemic respiratory failure requiring supplemental O2, IV steroids and close monitoring for pulmonary decompensation. Time Spent With Patient Time: Total time managing care of this patient today ____ minutes. Quality Stroke Does the patient have a stroke diagnosis?: No VTE Prior VTE?: No VTE Risk Level:: Medical - moderate - high VTE Device Contraindication: Treatment Not Indicated VTE Drug Contraindication: N/A - Med Ordered
[2022-09-19] MEDS: methylPREDNISolone Sod Succ 125 MG/2 ML VIAL 60 MG IVPUSH (17:51)
[2022-09-20] VITALS (14 sets, daily range): BP systolic 121–147; BP diastolic 68–95; PULSE 73–89; RESP 15–22; TEMP 35.9–36.8; O2SAT 88–95
[2022-09-20] MEDS: Albuterol Sulfate (0.083%) 2.5 MG/3 ML VIAL.NEB INHALE (04:40)
[2022-09-20] MEDS: methylPREDNISolone Sod Succ 125 MG/2 ML VIAL 60 MG IVPUSH ×2 (05:17→17:24)
[2022-09-20] MEDS: Multivitamin TABLET 1 TAB PO (07:59)
[2022-09-20] MEDS: Acetaminophen 325 MG TABLET 650 MG PO (08:02)
[2022-09-20] MEDS: 0.9 % Sodium Chloride Flush 3 ML SYRINGE IVFLUSH ×2 (08:04→17:34)
[2022-09-20] MEDS: Loratadine 10 MG TABLET PO (11:20)
[2022-09-20] MEDS: Azithromycin 500 MG in 0.9 % Sodium Chloride 250 ML 125 MG IV (11:20)
[2022-09-20] MEDS: Enoxaparin Sodium 40 MG/0.4 ML SYRINGE SUBCUT (11:20)
[2022-09-20] MEDS: guaiFENesin 100 MG/5 ML LIQUID 10 ML PO ×2 (11:29→17:32)
--- NOTE | 2022-09-20 12:33 | MHC.CM.PN ---
EMR REVIEWED, PER MD ROUNDS, PT NOT MEDICALLY CLEARED FOR DC (IV STEROIDS, SUPPLEMENTAL 02) CM WILL CONTINUE TO FOLLOW
[2022-09-20] MEDS: Fluticasone Propionate Nasal 16 GM SPRAY 1 SPRAY NOSTRIL-B (13:17)
--- NOTE | 2022-09-20 15:25 | P.PNIM_ITS ---
Subjective Subjective Date of Service: 09/20/22 Interval History: copd excerebation/viral uri Review of Systems still sob with minimum excersion has cough mosltly dry, no fever Physical Exam Vital Signs: Vital Signs: Last Vital Signs Temp 98.2 F 09/20/22 15:22 Pulse 85 09/20/22 15:22 Resp 15 09/20/22 15:22 BP 132/89 09/20/22 15:22 Pulse Ox 91 L 09/20/22 15:22 O2 Del Method 09/20/22 15:22 O2 Flow Rate 3 09/20/22 15:22 Oxygen Flow Rate 4 09/18/22 06:06 BMI result Body Mass Index 30.2 Appearance: Alert.? Oriented X3.?sob cvs: rrr, [id number] . res: air entry diminshed , b/l exp wheezin abd: no rebound or guarding ,nt, bs present. ext pulses present , no cyanosis. neuro: axo3 , nonfocal. Objective Data Active Medications Acetaminophen (Acetaminophen 325 Mg Tablet) 650 mg PO Q6H PRN PRN Reason: Pain, Mild (Pain Scale 1-3) Last Admin: 09/20/22 08:02 Dose: 650 mg Documented By: TRUONG Albuterol Sulfate (Albuterol Sulfate (0.083%) 2.5 Mg/3 Ml Vial.Neb) 2.5 mg INHALE Q2H PRN PRN Reason: Shortness of Breath/Wheezing Last Admin: 09/20/22 04:40 Dose: 2.5 mg Documented By: TALIA Albuterol Sulfate 2.5 mg/ (Ipratropium [place] 0.5 mg) 0 mg INHALE RQ4H WHILE AWAKE [facility] Last Admin: 09/20/22 10:46 Dose: 2.5 each Documented By: JAMAICARICTello Docusate Sodium (Docusate Sodium 100 Mg Capsule) 100 mg PO DAILY PRN PRN Reason: Constipation Enoxaparin Sodium (Enoxaparin Sodium 40 Mg/0.4 Ml Syringe) 40 mg SUBCUT Q24H [facility] Last Admin: 09/20/22 11:20 Dose: 40 mg Documented By: TRUONG Fluticasone Propionate (Fluticasone Propionate Nasal 16 Gm [place]) 1 spray NOSTRIL-B DAILY [facility] Last Admin: 09/20/22 13:17 Dose: 1 spray Documented By: TRUONG Fluticasone/Vilanterol (Fluticasone/Vilanterol 200/25 Blst.W.Dev) 1 puff INHALE DAILY [facility] Last Admin: 09/20/22 08:41 Dose: Not Given Documented By: JAMAICARICTello Non-Admin Reason: med not avail/pharm called X2 Guaifenesin (Guaifenesin 100 Mg/5 Ml Liquid) 10 ml PO Q4H PRN PRN Reason: Cough Last Admin: 09/20/22 11:29 Dose: 10 ml Documented By: TRUONG Loratadine (Loratadine 10 Mg Tablet) 10 mg PO DAILY [facility] Last Admin: 09/20/22 11:20 Dose: 10 mg Documented By: TRUONG Methylprednisolone Sodium Succinate (Methylprednisolone Sod Succ 125 Mg/2 Ml Vial) 60 mg IVPUSH Q12H [facility] Last Admin: 09/20/22 05:17 Dose: 60 mg Documented By: LAUREEN Multivitamins/Vitamin C (Multivitamin Tablet) 1 tab PO DAILY [facility] Last Admin: 09/20/22 07:59 Dose: 1 tab Documented By: TRUONG Ondansetron HCl (Ondansetron Hcl 4 Mg/2 Ml Vial) 4 mg IVPUSH Q8H PRN PRN Reason: Nausea and Vomiting Last Admin: 09/18/22 20:19 Dose: 4 mg Documented By: BRANDON Sodium Chloride (0.9 % Sodium Chloride Flush 3 Ml Syringe) 3 ml IVFLUSH QSHIFT [facility] Last Admin: 09/20/22 08:04 Dose: 3 ml Documented By: TRUONG Labs 09/19/22 06:01 09/19/22 06:01 Microbiology Microbiology Results: Microbiology 09/18/22 06:46 Blood Culture - Preliminary Blood - Venous No growth after 48 hours. 09/18/22 06:46 Blood Culture - Preliminary Blood - Venous No growth after 48 hours. Assessment and Plan (1) Acute hypoxemic respiratory failure: Status: Acute (2) Asthma with COPD with exacerbation: Status: Acute Plan 61-year-old female with history of osteoarthritis, former smoker, and moderate persistent asthma/COPD admitted for acute asthma/COPD exacerbation with acute hypoxemic respiratory failure. acute hypoxemic respiratory failure- secondary to asthma/COPD exacerbation/related to viral URI(entero/rhinovirus) still sob with excersion. CXR negative for pneumonia,D-dimer negative continue supplemental O2 to maintain oximetry around 92% acute moderate persistent asthma/COPD exacerbation- related to viral URI tachycardia and tachypnea imrporoved,still sob with excersion.oxygen demand increasing CXR negative for pneumonia 0 negative for COVID-19, influenza, RSV.? res panel -positive for (entero/rhinovirus) Continue methylprednisolone IV 60 mg b.i.d.,DuoNebs,azithromycin 500 mg IV daily,Symbicort, incentive spirometry, chest physiotherapy, out of bed to chair. obesity: encouraged to lose weight DVT prophylaxis-Lovenox Full code inpatient need: management of acute asthma/COPD exacerbation with acute hypoxemic respiratory failure requiring supplemental O2, IV steroids and close monitoring for pul monary decompensation. Time Spent With Patient Time: Total time managing care of this patient today ____ minutes. Quality Stroke Does the patient have a stroke diagnosis?: No VTE Prior VTE?: No VTE Risk Level:: Medical - moderate - high VTE Device Contraindication: Treatment Not Indicated VTE Drug Contraindication: N/A - Med Ordered
[2022-09-21] VITALS (13 sets, daily range): BP systolic 112–147; BP diastolic 70–88; PULSE 62–111; RESP 15–22; TEMP 35.8–36.9; O2SAT 80–94
[2022-09-21] MEDS: 0.9 % Sodium Chloride Flush 3 ML SYRINGE IVFLUSH ×3 (00:43→17:40)
[2022-09-21] MEDS: methylPREDNISolone Sod Succ 125 MG/2 ML VIAL 60 MG IVPUSH ×2 (06:32→17:40)
[2022-09-21] MEDS: Multivitamin TABLET 1 TAB PO (07:40)
[2022-09-21] MEDS: Loratadine 10 MG TABLET PO (07:40)
[2022-09-21] MEDS: Acetaminophen 325 MG TABLET 650 MG PO (07:40)
[2022-09-21] MEDS: Fluticasone/Vilanterol 200/25 BLST.W.DEV 1 PUFF INHALE (07:59)
[2022-09-21] MEDS: guaiFENesin 100 MG/5 ML LIQUID 10 ML PO (09:04)
[2022-09-21] MEDS: Fluticasone Propionate Nasal 16 GM SPRAY 1 SPRAY NOSTRIL-B (09:06)
--- NOTE | 2022-09-21 11:24 | PC.RT ---
Pt noted to have choking issues with dry powder inhalers. Breo ordered, pt tried but found the taste horrible, no choking was noted however and pt rinsed her mouth without issue. She does not want the breo again, offered to have her symbicort brought in and given to RN, RN informed.
--- NOTE | 2022-09-21 12:30 | P.CONPL_ITS ---
History of Present Illness History of Present Illness Consult date: 09/21/22 Chief complaint: COPD exacerbation, hypoxia Narrative: This is an inpatient pulmonary consultation. The patient is a 61-year-old female with history of osteoarthritis, former smoker, and moderate persistent asthma/COPD presented to the ED via EMS for evaluation of flu-like symptoms.? She states 2 days ago she developed symptoms including myalgias, nasal congestion, rhinorrhea, chest congestion, sore throat, and cough with yellow sputum production.? Yesterday reports symptoms were worsening with development of shortness of breath and wheezing.? Early this morning, reports oximetry of 83% on room air and called EMS.? On arrival, found to be hypoxic to 86% and placed on 5 L supplemental O2 via OxyMask.? She was also tachycardic to 122, tachypneic to 26, no hypotension.? She did receive DuoNeb treatment, 125 mg IV methylprednisolone, and IV magnesium in the ambulance.? The her viral swab was positive for enterovirus/rhinovirus. X-ray was reassuring. She has been on Solu-Medrol and in addition to the nebulized therapy. However she has been slow to recover. Therefore Pulmonary is consulted. I did review the chest x-ray. No significant findings there. She still having wheezing on examination. She is also expectorating mucus. Hard for her to expectorate at times. Moderate severity. Therefore will start treating her for postviral bacterial infection and also continue the nebulized therapy. The patient will also benefit from additional expectorants. Her oxygen requirements are going down slowly. I did explain to the patient that she may need oxygen upon discharge while this proce ss completely heals. But she is already making positive changes. Review of Systems Constitutional: Constitutional: Denies fever(s) Eyes: Eyes: Denies blurry vision ENT: Reports nasal congestion Cardiovascular: Cardiovascular: Denies chest pain and Reports dyspnea Respiratory: Respiratory: Reports chest congestion, Reports cough, Denies hemoptysis, Reports dyspnea and Reports wheezing Gastrointestinal: Gastrointestinal: Reports no additional gastrointestinal complaints Musculoskeletal: Musculoskeletal: Reports no additional musculoskeletal complaints Neurologic: Reports system reviewed and no additional complaints, except as documented Hematologic/Lymphatic: Hematologic/Lymphatic: Denies easy bleeding Allergic/Immunologic: Allergic/Immunologic: Reports wheezing PMFSH Past Medical History Medical History (Updated 09/21/22 @ 12:34 by Linus Jones MD) Arthritis Asthma COPD (chronic obstructive pulmonary disease) COVID-19 vaccine series completed Former smoker Post-operative nausea and vomiting Shortness of breath Family History Family History Maternal Aunt Substance use disorder Mental health disorder Surgical History Surgical History H/O colonoscopy History of total left hip replacement Hx of foot surgery Hx of hysterectomy Social History Social History Household Members: Family Housing: Apartment Are you a primary furnace caretaker to a significant other at home: No Do you presently have visiting nurse or other home services: No Alcohol intake: current Alcohol intake frequency: a few times a month Patient Tobacco Use Status: Former Tobacco user Quit Date: 2011 Tobacco use type: Cigarette e-Cigarette/Vaping Use: Never Used Second Hand Smoke Exposure: Yes (BF vapes in same room) service: No Current occupational status: unemployed Cognitive needs: No Hearing needs: No Vision needs: Yes Meds Allergies Allergy/AdvReac Type Severity Reaction Status Date / Time Seasonal Allergies Allergy Intermediate Itchy Eyes Verified 06/28/22 11:35 shellfish derived Allergy Intermediate HIVES Verified 06/28/22 11:35 [SHELLFISH DERIVED] cat dander [CAT] Allergy Mild PRURITUS, Verified 06/28/22 11:35 SNEEZING fluticasone [Advair Diskus] AdvReac Intermediate powder Verified 06/28/22 11:35 inhalers cause choking salmeterol [Advair Diskus] AdvReac Intermediate powder Verified 06/28/22 11:35 inhalers cause choking wixela AdvReac Intermediate powder Uncoded 09/21/21 16:15 inhalers cause choking Active Medications: Current Medications Acetaminophen (Acetaminophen 325 Mg Tablet) 650 mg PO Q6H PRN PRN Reason: Pain, Mild (Pain Scale 1-3) Last Admin: 09/21/22 07:40 Dose: 650 mg Albuterol Sulfate (Albuterol Sulfate (0.083%) 2.5 Mg/3 Ml Vial.Neb) 2.5 mg INHALE Q2H PRN PRN Reason: Shortness of Breath/Wheezing Last Admin: 09/20/22 04:40 Dose: 2.5 mg Albuterol Sulfate 2.5 mg/ (Ipratropium [place] 0.5 mg) 0 mg INHALE RQ4H WHILE AWAKE [facility] Last Admin: 09/21/22 11:18 Dose: 2.5 each Docusate Sodium (Docusate Sodium 100 Mg Capsule) 100 mg PO DAILY PRN PRN Reason: Constipation Doxycycline Monohydrate (Doxycycline Monohydrate 100 Mg Capsule) 100 mg PO Q12H [facility] Enoxaparin Sodium (Enoxaparin Sodium 40 Mg/0.4 Ml Syringe) 40 mg SUBCUT Q24H [facility] Last Admin: 09/20/22 11:20 Dose: 40 mg Fluticasone Propionate (Fluticasone Propionate Nasal 16 Gm [place]) 1 spray NOSTRIL-B DAILY [facility] Last Admin: 09/21/22 09:06 Dose: 1 spray Fluticasone/Vilanterol (Fluticasone/Vilanterol 200/25 Blst.W.Dev) 1 puff INHALE DAILY [facility] Last Admin: 09/21/22 07:59 Dose: 1 puff Guaifenesin (Guaifenesin 100 Mg/5 Ml Liquid) 10 ml PO Q4H PRN PRN Reason: Cough Last Admin: 09/21/22 09:04 Dose: 10 ml Loratadine (Loratadine 10 Mg Tablet) 10 mg PO DAILY [facility] Last Admin: 09/21/22 07:40 Dose: 10 mg Methylprednisolone Sodium Succinate (Methylprednisolone Sod Succ 125 Mg/2 Ml Vial) 60 mg IVPUSH Q12H [facility] Last Admin: 09/21/22 06:32 Dose: 60 mg Multivitamins/Vitamin C (Multivitamin Tablet) 1 tab PO DAILY [facility] Last Admin: 09/21/22 07:40 Dose: 1 tab Ondansetron HCl (Ondansetron Hcl 4 Mg/2 Ml Vial) 4 mg IVPUSH Q8H PRN PRN Reason: Nausea and Vomiting Last Admin: 09/18/22 20:19 Dose: 4 mg Sodium Chloride (0.9 % Sodium Chloride Flush 3 Ml Syringe) 3 ml IVFLUSH QSHIFT [facility] Last Admin: 09/21/22 09:04 Dose: 3 ml Home Medications Medication Instructions Recorded Confirmed Last Taken Type multivitamin (Daily Multi-Vitamin 1 tab PO DAILY 09/18/22 09/18/22 09/17/22 History tablet) Physical Exam Vital Signs: Vital Signs: Last Vital Signs Temp 96.4 F L 09/21/22 11:49 Pulse 111 H 09/21/22 11:49 Resp 18 09/21/22 11:20 BP 143/85 H 09/21/22 11:49 Pulse Ox 92 09/21/22 11:49 O2 Del Method 09/21/22 07:23 O2 Flow Rate 3 09/21/22 07:23 Oxygen Flow Rate 4 09/18/22 06:06 BMI result Body Mass Index 30.2 Appearance: Alert.? Oriented X3 cvs: rrr, [id number] . res: air entry diminshed , b/l exp wheezin abd: no rebound or guarding ,nt, bs present. ext pulses present , no cyanosis. neuro: axo3 , nonfocal. Results Laboratory Findings 09/19/22 06:01 09/19/22 06:01 Abnormal lab findings: Abnormal Labs 09/18/22 09/18/22 09/18/22 06:27 06:27 13:32 WBC 15.3 H Hgb 16.5 H Hct 50.2 H Immature Gran % (Auto) Neut % (Auto) 80.6 H Lymph % (Auto) 12.7 L [place] # (Auto) Abs Immat Gran (auto) 0.06 H Absolute Neuts (auto) 12.3 H BUN 6 L Random Glucose 142 H Entero/Rhino (PCR) Detected A 09/19/22 06:01 WBC 15.2 H Hgb Hct 48.0 H Immature Gran % (Auto) 0.5 H Neut % (Auto) 77.6 H Lymph % (Auto) 12.8 L [place] # (Auto) 1.3 H Abs Immat Gran (auto) 0.08 H Absolute Neuts (auto) 11.8 H BUN Random Glucose Entero/Rhino (PCR) Microbiology: Microbiology 09/18/22 06:46 Blood - Venous Blood Culture - Preliminary No growth after 48 hours. 09/18/22 06:46 Blood - Venous Blood Culture - Preliminary No growth after 48 hours. Assessment and Plan (1) Acute hypoxemic respiratory failure: Status: Acute (2) Asthma with COPD with exacerbation: Status: Acute (3) Viral syndrome: Status: Acute Plan Continue Solu-Medrol, change to prednisone when her respiratory status improves hopefully in 1-2 days Continue nebulized therapy Add Mucinex At doxycycline for postviral bacterial infection Continue Breo Continue oxygen to maintain a pulse ox above 90%. Hopefully we can wean her off. However, there is a chance that she will need oxygen briefly upon discharge will reassess closer to discharge The patient should follow up with Pulmonary Time Spent With Patient Time: Total time managing care of this patient today ____ minutes. Procedures Date of Service Date of Service: 09/21/22
[2022-09-21] MEDS: Enoxaparin Sodium 40 MG/0.4 ML SYRINGE SUBCUT (13:26)
--- NOTE | 2022-09-21 16:01 | HO.PM.IMPN ---
Subjective Subjective Date of Service: 09/21/22 Interval History: copd excerebation/viral uri Review of Systems still sob with minimum excersion has cough mosltly dry, no fever Physical Exam Vital Signs: Vital Signs: Last Vital Signs Temp 97.6 F 09/21/22 15:23 Pulse 93 09/21/22 15:23 Resp 15 09/21/22 15:23 BP 134/88 09/21/22 15:23 Pulse Ox 90 L 09/21/22 15:23 O2 Del Method 09/21/22 15:23 O2 Flow Rate 3 09/21/22 15:23 Oxygen Flow Rate 4 09/18/22 06:06 BMI result Body Mass Index 30.2 ?Appearance: Alert.? Oriented X3.?sob cvs: rrr, [id number] . res: air entry diminshed , b/l exp wheezin abd: no rebound or guarding ,nt, bs present. ext pulses present , no cyanosis. neuro: axo3 , nonfocal. Objective Data Active Medications Acetaminophen (Acetaminophen 325 Mg Tablet) 650 mg PO Q6H PRN PRN Reason: Pain, Mild (Pain Scale 1-3) Last Admin: 09/21/22 07:40 Dose: 650 mg Documented By: JOSE Albuterol Sulfate (Albuterol Sulfate (0.083%) 2.5 Mg/3 Ml Vial.Neb) 2.5 mg INHALE Q2H PRN PRN Reason: Shortness of Breath/Wheezing Last Admin: 09/20/22 04:40 Dose: 2.5 mg Documented By: TALIA Albuterol Sulfate 2.5 mg/ (Ipratropium [place] 0.5 mg) 0 mg INHALE RQ4H WHILE AWAKE [facility] Last Admin: 09/21/22 15:10 Dose: 2.5 each Documented By: ABHIJIT Docusate Sodium (Docusate Sodium 100 Mg Capsule) 100 mg PO DAILY PRN PRN Reason: Constipation Doxycycline Monohydrate (Doxycycline Monohydrate 100 Mg Capsule) 100 mg PO Q12H [facility] Enoxaparin Sodium (Enoxaparin Sodium 40 Mg/0.4 Ml Syringe) 40 mg SUBCUT Q24H [facility] Last Admin: 09/21/22 13:26 Dose: 40 mg Documented By: WOODY Fluticasone Propionate (Fluticasone Propionate Nasal 16 Gm [place]) 1 spray NOSTRIL-B DAILY [facility] Last Admin: 09/21/22 09:06 Dose: 1 spray Documented By: JOSE Fluticasone/Vilanterol (Fluticasone/Vilanterol 200/25 Blst.W.Dev) 1 puff INHALE DAILY [facility] Last Admin: 09/21/22 07:59 Dose: 1 puff Documented By: ABHIJIT Guaifenesin/Dextromethorphan (Guaifenesin Dm 600/30 1 Tab Tab.Er.12h) 2 tab PO BID [facility] Loratadine (Loratadine 10 Mg Tablet) 10 mg PO DAILY [facility] Last Admin: 09/21/22 07:40 Dose: 10 mg Documented By: JOSE Methylprednisolone Sodium Succinate (Methylprednisolone Sod Succ 125 Mg/2 Ml Vial) 60 mg IVPUSH Q12H [facility] Last Admin: 09/21/22 06:32 Dose: 60 mg Documented By: EWDINA Multivitamins/Vitamin C (Multivitamin Tablet) 1 tab PO DAILY [facility] Last Admin: 09/21/22 07:40 Dose: 1 tab Documented By: JOSE Ondansetron HCl (Ondansetron Hcl 4 Mg/2 Ml Vial) 4 mg IVPUSH Q8H PRN PRN Reason: Nausea and Vomiting Last Admin: 09/18/22 20:19 Dose: 4 mg Documented By: BRANDON Sodium Chloride (0.9 % Sodium Chloride Flush 3 Ml Syringe) 3 ml IVFLUSH QSHIFT [facility] Last Admin: 09/21/22 09:04 Dose: 3 ml Documented By: JOSE Labs 09/19/22 06:01 09/19/22 06:01 Assessment and Plan (1) Acute hypoxemic respiratory failure: Status: Acute (2) Asthma with COPD with exacerbation: Status: Acute Plan 61-year-old female with history of osteoarthritis, former smoker, and moderate persistent asthma/COPD admitted for acute asthma/COPD exacerbation with acute hypoxemic respiratory failure. acute hypoxemic respiratory failure- secondary to asthma/COPD exacerbation/related to viral URI(entero/rhinovirus) still sob with excersion. CXR negative for pneumonia,D-dimer negative continue supplemental O2 to maintain oximetry around 92% seen by pulm-added doxycycline/mucinex. acute moderate persistent asthma/COPD exacerbation- related to viral URI tachycardia and tachypnea imrporoved,still sob with excersion.oxygen demand increasing CXR negative for pneumonia negative for COVID-19, influenza, RSV.? res panel -positive for (entero/rhinovirus) Continue methylprednisolone IV 60 mg b.i.d.,DuoNebs,azithromycin 500 mg IV daily,Symbicort, incentive spirometry, chest physiotherapy, out of bed to chair. obesity: encouraged to lose weight DVT prophylaxis-Lovenox Full code inpatient need: management of acute asthma/COPD exacerbation with acute hypoxemic respiratory failure requiring supplemental O2, IV steroids and close monitoring for pulmonary decompensation. Time Spent With Patient Time: Total time managing care of this patient today ____ minutes. Quality Stroke Does the patient have a stroke diagnosis?: No VTE Prior VTE?: No VTE Risk Level:: Medical - moderate - high VTE Device Contraindication: Treatment Not Indicated VTE Drug Contraindication: N/A - Med Ordered
[2022-09-21] MEDS: Doxycycline Monohydrate 100 MG CAPSULE PO (17:40)
[2022-09-22] VITALS (9 sets, daily range): BP systolic 128–161; BP diastolic 73–88; PULSE 63–91; RESP 15–20; TEMP 36.2–36.9; O2SAT 91–97
[2022-09-22] MEDS: methylPREDNISolone Sod Succ 125 MG/2 ML VIAL 60 MG IVPUSH ×2 (06:08→18:11)
[2022-09-22] MEDS: Doxycycline Monohydrate 100 MG CAPSULE PO ×2 (06:08→18:11)
[2022-09-22] MEDS: Loratadine 10 MG TABLET PO (09:21)
[2022-09-22] MEDS: Multivitamin TABLET 1 TAB PO (09:21)
[2022-09-22] MEDS: 0.9 % Sodium Chloride Flush 3 ML SYRINGE IVFLUSH ×2 (09:21→18:11)
[2022-09-22] MEDS: guaiFENesin DM 600/30 1 TAB TAB.ER.12H 2 TAB PO ×2 (09:28→21:36)
[2022-09-22] MEDS: Enoxaparin Sodium 40 MG/0.4 ML SYRINGE SUBCUT (12:31)
--- NOTE | 2022-09-22 13:03 | MHC.CM.PN ---
EMR REVIEWED AND PER MD ROUNDS, PT NOT MEDICALLY CLEARED FOR DC (IV STEROIDS, SUPPLEMENTAL 02, DECREASE 02 SAT, RISK FOR PULMONARY DECOMPENSATION) CM WILL CONTINUE TO FOLLOW FOR PLAN
--- NOTE | 2022-09-22 14:22 | HO.PM.IMPN ---
Subjective Subjective Date of Service: 09/22/22 Interval History: copd excerebation/viral uri Review of Systems still sob with minimum excersion has cough mosltly dry, no fever Physical Exam Vital Signs: Vital Signs: Last Vital Signs Temp 98.5 F 09/22/22 11:19 Pulse 87 09/22/22 11:19 Resp 20 09/22/22 11:19 BP 161/87 H 09/22/22 11:19 Pulse Ox 95 09/22/22 11:19 O2 Del Method 09/22/22 11:19 O2 Flow Rate 3 09/22/22 11:19 Oxygen Flow Rate 4 09/18/22 06:06 BMI result Body Mass Index 30.2 ??Appearance: Alert.? Oriented X3.?sob cvs: rrr, [id number] . res: air entry diminshed , b/l exp wheezin abd: no rebound or guarding ,nt, bs present. ext pulses present , no cyanosis. neuro: axo3 , nonfocal. Objective Data Active Medications Acetaminophen (Acetaminophen 325 Mg Tablet) 650 mg PO Q6H PRN PRN Reason: Pain, Mild (Pain Scale 1-3) Last Admin: 09/21/22 07:40 Dose: 650 mg Documented By: JOSE Albuterol Sulfate (Albuterol Sulfate (0.083%) 2.5 Mg/3 Ml Vial.Neb) 2.5 mg INHALE Q2H PRN PRN Reason: Shortness of Breath/Wheezing Last Admin: 09/20/22 04:40 Dose: 2.5 mg Documented By: TALIA Albuterol Sulfate 2.5 mg/ (Ipratropium [place] 0.5 mg) 0 mg INHALE RQ4H WHILE AWAKE [facility] Last Admin: 09/22/22 11:15 Dose: 2.5 each Documented By: ANIL Docusate Sodium (Docusate Sodium 100 Mg Capsule) 100 mg PO DAILY PRN PRN Reason: Constipation Doxycycline Monohydrate (Doxycycline Monohydrate 100 Mg Capsule) 100 mg PO Q12H [facility] Last Admin: 09/22/22 06:08 Dose: 100 mg Documented By: ENOCH Enoxaparin Sodium (Enoxaparin Sodium 40 Mg/0.4 Ml Syringe) 40 mg SUBCUT Q24H [facility] Last Admin: 09/22/22 12:31 Dose: 40 mg Documented By: JOSE Fluticasone Propionate (Fluticasone Propionate Nasal 16 Gm [place]) 1 spray NOSTRIL-B DAILY [facility] Last Admin: 09/22/22 09:22 Dose: Not Given Documented By: JOSE Non-Admin Reason: Patient Refused Fluticasone/Vilanterol (Fluticasone/Vilanterol 200/25 Blst.W.Dev) 1 puff INHALE DAILY [facility] Last Admin: 09/22/22 07:37 Dose: Not Given Documented By: ANIL Non-Admin Reason: Patient Refused Guaifenesin/Dextromethorphan (Guaifenesin Dm 600/30 1 Tab Tab.Er.12h) 2 tab PO BID [facility] Last Admin: 09/22/22 09:28 Dose: 2 tab Documented By: JOSE Loratadine (Loratadine 10 Mg Tablet) 10 mg PO DAILY [facility] Last Admin: 09/22/22 09:21 Dose: 10 mg Documented By: JOSE Methylprednisolone Sodium Succinate (Methylprednisolone Sod Succ 125 Mg/2 Ml Vial) 60 mg IVPUSH Q12H [facility] Last Admin: 09/22/22 06:08 Dose: 60 mg Documented By: ENOCH Multivitamins/Vitamin C (Multivitamin Tablet) 1 tab PO DAILY [facility] Last Admin: 09/22/22 09:21 Dose: 1 tab Documented By: JOSE Ondansetron HCl (Ondansetron Hcl 4 Mg/2 Ml Vial) 4 mg IVPUSH Q8H PRN PRN Reason: Nausea and Vomiting Last Admin: 09/18/22 20:19 Dose: 4 mg Documented By: BRANDON Sodium Chloride (0.9 % Sodium Chloride Flush 3 Ml Syringe) 3 ml IVFLUSH QSHIFT [facility] Last Admin: 09/22/22 09:21 Dose: 3 ml Documented By: JOSE Labs 09/19/22 06:01 09/19/22 06:01 Assessment and Plan (1) Acute hypoxemic respiratory failure: Status: Acute (2) Asthma with COPD with exacerbation: Status: Acute Plan 61-year-old female with history of osteoarthritis, former smoker, and moderate persistent asthma/COPD admitted for acute asthma/COPD exacerbation with acute hypoxemic respiratory failure. acute hypoxemic respiratory failure- secondary to asthma/COPD exacerbation/related to viral URI(entero/rhinovirus) still sob with excersion. CXR negative for pneumonia,D-dimer negative continue supplemental O2 to maintain oximetry around 92% seen by pulm-added doxycycline/mucinex. acute moderate persistent asthma/COPD exacerbation- related to viral URI tachycardia and tachypnea imrporoved,still sob with excersion.oxygen demand increasing CXR negative for pneumonia negative for COVID-19, influenza, RSV.? res panel -positive for (entero/rhinovirus) Continue methylprednisolone IV 60 mg b.i.d.,DuoNebs,azithromycin 500 mg IV daily,Symbicort, incentive spirometry, chest physiotherapy, out of bed to chair. obesity: encouraged to lose weight DVT prophylaxis-Lovenox Full code inpatient need: management of acute asthma/COPD exacerbation with acute hypoxemic respiratory failure requiring supplemental O2, IV steroids and close monitoring for pulmonary decompensation. Time Spent With Patient Time: Total time managing care of this patient today ____ minutes. Quality Stroke Does the patient have a stroke diagnosis?: No VTE Prior VTE?: No VTE Risk Level:: Medical - moderate - high VTE Device Contraindication: Treatment Not Indicated VTE Drug Contraindication: N/A - Med Ordered
[2022-09-23] VITALS (9 sets, daily range): BP systolic 113–140; BP diastolic 58–88; PULSE 61–119; RESP 14–24; TEMP 36.2–37.2; O2SAT 87–95
[2022-09-23] MEDS: 0.9 % Sodium Chloride Flush 3 ML SYRINGE IVFLUSH ×2 (01:00→09:57)
[2022-09-23] MEDS: methylPREDNISolone Sod Succ 125 MG/2 ML VIAL 60 MG IVPUSH (05:49)
[2022-09-23] MEDS: Doxycycline Monohydrate 100 MG CAPSULE PO (05:50)
[2022-09-23] MEDS: Multivitamin TABLET 1 TAB PO (09:57)
[2022-09-23] MEDS: guaiFENesin DM 600/30 1 TAB TAB.ER.12H 2 TAB PO (09:57)
[2022-09-23] MEDS: Loratadine 10 MG TABLET PO (09:57)
--- NOTE | 2022-09-23 12:01 | P.DS_ITS ---
DS: Providers Provider Date of Service: 09/23/22 Date of admission: 09/18/22 12:08 Date of discharge: 09/23/22 Primary care physician: Salome Pierson MD Consults: 09/21/22 08:09 Consult to Pulmonology Routine Consulting Provider: [facility] Pul[facility]ology Services Reason for consultation: acute hypoxemic respiratory failure secondary to COPD/viral URI. Has provider been notified: No Attending physician on discharge: Bree Martin DS: Diagnosis Discharge Diagnosis (1) Acute hypoxemic respiratory failure: Status: Acute (2) Asthma with COPD with exacerbation: Status: Acute DS: Summary Hospital Course Hospital Course: 61-year-old female with history of osteoarthritis, former smoker, and moderate persistent asthma/COPD presented to the ED via EMS for evaluation of flu-like symptoms.? She states 2 days ago she developed symptoms including myalgias, nasal congestion, rhinorrhea, chest congestion, sore throat, and cough with yellow sputum production.? Yesterday reports symptoms were worsening with development of shortness of breath and wheezing.? Early this morning, reports oximetry of 83% on room air and called EMS.? On arrival, found to be hypoxic to 86% and placed on 5 L supplemental O2 via OxyMask.? She was also tachycardic to 122, tachypneic to 26, no hypotension.? She did receive DuoNeb treatment, 125 mg IV methylprednisolone, and IV magnesium in the ambulance.? She has a leukocytosis of 15.3, D-dimer < 150.? Renal function normal, electrolyte levels normal.? VBG within normal limits.? Found to be negative for influenza a, COVID- 19, and RSV.? Chest x-ray negative for any acute cardiopulmonary abnormality.? EKG showing sinus tachycardia, rate [address]/T-wave abnormality.? She denies any fevers, chills, abdominal pain, nausea, vomiting, diarrhea, lightheadedness, chest pain.? Denies any known sick contacts. Hospital course: acute hypoxemic respiratory failure- secondary to asthma/COPD exacerbation/related to viral URI(entero/rhinovirus): Treatment started with IV steroids, nebulizers, oxygen support also added antibiotics: Patient seems to be improved with treatment, shortness of breath improved significantly, also blood culture negative, leukocytosis still mild elevated but possible related to steroid use. Seen by Pulmonary also, patient seems to be improved patient will be going home with p.o. steroids and antibiotics. Also patient will require home oxygen qualified for oxygen. Plan: Complete the course of steroids and antibiotics. Continue home oxygen as prescribed. Follow-up with PCP and consider Pulmonary followup out patiently. Above management discussed with patient in detail length she understand and in agreement with the above plan, time spent 50 minute. Time Spent with Patient Time attestation: Total time managing care of this patient today ____ minutes. Discharge coordination time: Greater than 30 minutes Quality: Safe Use of Opioids Does Pt have an Active Cancer Diagnosis on the Problem List?: No Quality: Stroke Does the patient have a stroke diagnosis?: No Physical Exam Vital Signs: Vital Signs: Last Vital Signs Temp 98.9 F 09/23/22 11:10 Pulse 92 09/23/22 11:10 Resp 14 09/23/22 11:10 BP 140/82 H 09/23/22 11:10 Pulse Ox 91 L 09/23/22 11:10 O2 Del Method 09/23/22 11:10 O2 Flow Rate 3 09/23/22 11:10 Oxygen Flow Rate 4 09/18/22 06:06 BMI result Body Mass Index 30.2 Appearance: Alert.? Oriented X3.?sob cvs: rrr, [id number] . res: air entry diminshed , b/l exp wheezin abd: no rebound or guarding ,nt, bs present. ext pulses present , no cyanosis. neuro: axo3 , nonfocal. DS: Data Imaging Chest x-ray: Radiologist's impression: ITS Impressions Chest X-Ray 09/18/22 06:53 IMPRESSION: No acute finding. Discharge Plan Discharge Anticipated Discharge Date/Time: 09/23/22 11:54 Patient Disposition: Home Health Service Discharge Diagnosis: Acute hypoxemic respiratory failure secondary to COPD/viral URI. Referrals: Salome Pierson MD [Primary Care Provider] - 1 Week Discharge Medications: New doxycycline monohydrate 100 mg Capsule 100 mg PO Q12H Qty: 10 0RF Mucus DM 30-600 mg Tablet Extended Release 12 Hr 2 tab PO BID Qty: 10 0RF fluticasone propionate 50 mcg/actuation [place],Suspension 1 spray intranasal DAILY Qty: 1 0RF loratadine 10 mg Tablet 10 mg PO DAILY Qty: 10 0RF prednisone 20 mg tablet 40 mg PO DAILY Qty: 8 0RF Continued multivitamin [Daily Multi-Vitamin] Tablet 1 tab PO DAILY budesonide-formoterol [Symbicort] 160-4.5 mcg/actuation HFA aerosol inhaler 2 puff inhalation BID 30 Days Qty: 10.2 3RF albuterol sulfate 90 mcg/actuation HFA aerosol inhaler 1 inh inhalation QID PRN (Reason: shortness of breath or wheezing) Qty: 6.7 1RF Discharge Orders: Discharge Order (Routine); Ordered 09/23/22 Ordered By: Bree Martin Diet: Advance to usual diet Activity on Discharge: As tolerated Stand Alone Forms: Patient Portal Discharge page Care Plan Goals: Patient was admitted for shortness of breath found to have shortness shortness of breath related to COPD exacerbation as well as upper respiratory tract urea viral infection: Patient needed IV steroids, oxygen support as well as antibiotics-patient seems to be improved significantly- shortness of breath seems much better, patient was switched to p.o. steroids upon discharge and antibiotics. In addition patient will go with home oxygen patient qualified for 3 L home oxygen. Consider follow-up outpatient with Pulmonary and PCP. Health Concerns: As above. Plan of Treatment: As above. Assessment: As above. Patient Instructions: COPD (Chronic Obstructive Pulmonary Disease) (DC), Viral Syndrome (DC), Acute Respiratory Failure (ED)
--- NOTE | 2022-09-23 12:08 | MHC.CM.PN ---
Verified w/MD that D/C order for home with home health services indicates with in-home oxygen only, and that in-home nursing/PT/OT, etc is not being ordered. RT set up in-home O2. Patient to D/C home w/in-home O2 today via family.
[2022-09-23] MEDS: Enoxaparin Sodium 40 MG/0.4 ML SYRINGE SUBCUT (15:48)
== END 2022-09-23 17:21 | disposition home or self-care (01) | DRG 140 ==
LOC: HO.ED 06:55 → HO.EDOVER 12:16 → HO.IMC 13:24
PROVIDERS: Emergency Medicine; Admitting Provider Physician Assistant; Emergency Provider Student in an Organized Health Care Education/Training Program; PCP Internal Medicine; Visit Provider Internal Medicine
DX: J44.1 Chronic obstructive pulmonary disease with (acute) exacerbation (principal); J96.01 Acute respiratory failure with hypoxia; B34.1 Enterovirus infection, unspecified; J45.41 Moderate persistent asthma with (acute) exacerbation; E66.9 Obesity, unspecified; Z20.822 Contact with and (suspected) exposure to COVID-19; Z68.30 Body mass index [BMI] 30.0-30.9, adult; Z87.891 Personal history of nicotine dependence; Z79.51 Long term (current) use of inhaled steroids; Z79.899 Other long term (current) drug therapy
CPT/HCPCS: 0241U; 36415; 71045; 80048; 80053; 82803; 83605; 83735; 84484; 85025; 85379; 87040; 87633; 93005; 94640; 99285; J0456; J1650; J2405; J2930

== ENCOUNTER 2023-05-15 12:57 | Outpatient (AMB) | payer OTHER, SELFPAY ==
[2023-05-15 13:00] VITALS: BP 134/84; PULSE 68; O2SAT 96; BMI 31.6
--- NOTE | 2023-05-15 13:00 | A.OFFPC_ITS ---
Vital Signs 05/15/23 13:00 Height 5 ft 1 in Weight 167 lb BMI 31.6 BP 134/84 Blood Pressure Location Lt brachial Position Sitting Pulse 68 Pulse Source Pulse Oximeter Pulse Oximetry (%) 96 Oxygen Delivery Method Room Air Intake Visit Reasons: F/ u lungs Intake Note: Pt is here today for a follow up visit. Allergies Seasonal Allergies Allergy (Intermediate, Verified 05/15/23 13:03) Itchy Eyes shellfish derived [SHELLFISH DERIVED] Allergy (Intermediate, Verified 05/15/23 13:03) HIVES cat dander [CAT] Allergy (Mild, Verified 05/15/23 13:03) PRURITUS, SNEEZING fluticasone [Advair Diskus] Adverse Reaction (Intermediate, Verified 05/15/23 13:03) powder inhalers cause choking salmeterol [Advair Diskus] Adverse Reaction (Intermediate, Verified 05/15/23 13:03) powder inhalers cause choking wixela Adverse Reaction (Intermediate, Uncoded 05/15/23 13:03) powder inhalers cause choking Medication List - Last Reconciled 05/15/23 by Salome Pierson MD albuterol sulfate 90 mcg/actuation 1 inh inhalation QID PRN cetirizine (Zyrtec) 10 mg PO DAILY PRN 90 days clotrimazole 10 mg mucous membrane TID 7 days fluconazole (Diflucan) 150 mg PO Q3D 2 doses loratadine 10 mg PO DAILY multivitamin (Daily Multi-Vitamin tablet) 1 tab PO DAILY Symbicort 160-4.5 mcg/actuation (budesonide-formoterol) 2 puffs inhalation BID 30 days NS Tobacco use date assessed: 10/06/22 Dental Screening Dental Screen Date: 05/15/23 Did you have a dental visit in the last 12 months?: Yes Did you have a dental problem in the last 6 months where you did not have access to dental care?: No Was dental information given to patient?: Patient has dentist HPI F/ u lungs HPI Details Patient is 62-year-old female With a history of COPD and asthma, ex smoker Currently using Symbicort and albuterol Patient says that lately she has been using albuterol 2 times a day and still feel short of breath She said that she feels chest tightness sometimes We have done EKG today which showed normal sinus rhythm 60 beats per minute no acute ST-T findings X-ray of her chest ordered I have also sent ipratropium inhaler that she should start using Q 8 hours I have also ordered pulmonary function test to see the severity of COPD Labs to be done today. Follow-up 2 months [facility] Medical History Former smoker Shortness of breath COVID-19 vaccine series completed Post-operative nausea and vomiting Arthritis COPD (chronic obstructive pulmonary disease) Asthma Surgical History Hx of hysterectomy History of total left hip replacement Hx of foot surgery H/O colonoscopy Family History Maternal Aunt Substance use disorder Mental health disorder Social History Household Members: Family Housing: Apartment Are you a primary resident care associate to a significant other at home: No Do you presently have visiting nurse or other home services: No Alcohol intake: current Alcohol intake frequency: a few times a month Patient Tobacco Use Status: Former Tobacco user Quit Date: 2011 Tobacco use type: Cigarette e-Cigarette/Vaping Use: Never Used Second Hand Smoke Exposure: Yes (BF vapes in same room) service: No Current occupational status: unemployed Cognitive needs: No Hearing needs: No Vision needs: Yes Questionnaire PHQ-9 Over the last 2 weeks, how often have you been bothered by any of the following problems? 1. Little interest or pleasure in doing things: not at all 2. Feeling down, depressed, or hopeless: not at all 3. Trouble falling or staying asleep, or sleeping too much: not at all 4. Feeling tired or having little energy: not at all 5. Poor appetite or overeating: not at all 6. Feeling bad about yourself - or that you are a failure or have let yourself or your family down: not at all 7. Trouble concentrating on things, such as reading the newspaper or watching television: not at all 8. Moving or speaking so slowly that other people could have noticed. Or the opposite - being so fidgety or restless that you have been moving around a lot more than usual: not at all 9. Thoughts that you would be better off or of hurting yourself in some way: not at all Total score: 0 Depression Screening Interpretation: Negative Depression Screening Done: Yes 05158 - PHQ-9 Billing: Yes Source: Developed by Drs. aJ Lara, Celso Garcia and colleagues, with an educational juanita from [employer]. Thrive Questionnaire Date Thrive assessed: 05/15/23 I am a: Patient What is your living situation today?: I have a steady place to live Within the past 12 months, did the food you bought not last and you didn't have the money to get more?: Never true Within the past 12 months, did you worry whether your food would run out before you got money to buy more?: Never true Do you have trouble paying for medicines?: No Do you have trouble getting transportation to medical appointments?: No Do you have trouble paying your heating and electricity bill?: No Do you have trouble taking care of your child, family member or friend?: No Do you have trouble with day-to-day activities such as bathing, preparing meals, shopping, managing finances, etc.?: No Are you currently unemployed and looking for a job?: No Are you interested in more education?: No Please select the resources that you would like help with: None Currently or been in a relationship where the following occur: no concerns reported JOHNNIE-7 AMB Questionnaire JOHNNIE-7 Date JOHNNIE - 7 assessed: 05/15/23 Source: Developed by Drs. Ja Lara, Celso Garcia and colleagues, with an educational juanita from [employer]. Review of Systems Const Denies chills and Denies fever(s) ENT Denies epistaxis and Denies nasal discharge Resp Denies chest congestion, Denies cough and Denies hemoptysis GI Denies diarrhea and Denies nausea Skin/Breast Denies rash Neuro Reports no additional complaints Psych Reports no additional complaints Endo Reports no additional complaints Physical exam (Primary Care) Vital Signs: Last Vital Signs Pulse 68 05/15/23 13:00 BP 134/84 05/15/23 13:00 Pulse Ox 96 05/15/23 13:00 Oxygen Delivery Method Room Air 05/15/23 13:00 BMI result Body Mass Index 31.6 Tobacco/Smoking Status: Tobacco use Status Tobacco use date assessed 10/06/22 05/15/23 13:01 Patient Tobacco Use Status Former Tobacco user 05/15/23 13:01 Tobacco use type Cigarette 05/15/23 13:01 e-Cigarette/Vaping Use Never Used 05/15/23 13:01 PHQ-9: PHQ-9 Score PHQ-9: Total score 0 05/15/23 13:33 Depression Screening Interpretation: Negative Thrive Assessment: Date of Thrive Assessment Date Thrive assessed 05/15/23 05/15/23 13:06 Currently or been in a relationship where the following occur: no concerns reported Const General: cooperative, comfortable and no acute distress Orientation/consciousness: patient oriented x3 HENMT Head: Yes normocephalic Eyes General: appearance normal, both eyes and all related structures Neck Neck: Yes supple Resp Other: Bilateral wheezing posteriorly basal, patient is able to speak in full sentences, no cough with deep breaths Effort & Inspection: normal respiratory effort, no cough and no stridor Cardio Rhythm: regular rhythm Heart sounds: S1 normal heart sound present and S2 normal heart sound present Skin General skin exam: turgor normal Neuro General: patient oriented x3, tone normal and moves all extremities Extrem Right lower extremity: no edema Left lower extremity: no edema Office Procedures EKG 53989-[id number], Complete Assessment and Plan Assessment & Plan (1) Chest tightness: Code(s): R07.89 - Other chest pain (2) COPD (chronic obstructive pulmonary disease): Code(s): J44.9 - Chronic obstructive pulmonary disease, unspecified Qualifiers: COPD type: emphysema Emphysema type: panlobular Qualified Code(s): J43.1 - Panlobular emphysema (3) Asthma, moderate persistent: Code(s): J45.40 - Moderate persistent asthma, uncomplicated Qualifiers: Asthma complication type: uncomplicated Qualified Code(s): J45.40 - Moderate persistent asthma, uncomplicated (4) Wheezing: Code(s): R06.2 - Wheezing (5) Environmental allergies: Code(s): Z91.09 - Other allergy status, other than to drugs and biological substances (6) Obesity due to excess calories: Code(s): E66.09 - Other obesity due to excess calories Qualifiers: Body mass index: BMI 31.0-31.9 Obesity classification: adult class 1 (BMI 30 - 34.9) Serious obesity comorbidity presence: without serious comorbidity Qualified Code(s): E66.09 - Other obesity due to excess calories; Z68.31 - Body mass index [BMI] 31.0-31.9, adult Plan Patient is 62-year-old female With a history of COPD and asthma, ex smoker Currently using Symbicort and albuterol Patient says that lately she has been using albuterol 2 times a day and still feel short of breath She said that she feels chest tightness sometimes We have done EKG today which showed normal sinus rhythm 60 beats per minute no acute ST-T findings X-ray of her chest ordered I have also sent ipratropium inhaler that she should start using Q 8 hours I have also ordered pulmonary function test to see the severity of COPD Labs to be done today. Follow-up 2 months Orders: Orders XR chest 2V Today J44.9 - Chronic obstructive pulmonary disease, unspecified, J45.40 - Moderate persistent asthma, uncomplicated, R06.2 - Wheezing, R07.89 - Other chest pain Comprehensive Met. Panel Today J44.9 - Chronic obstructive pulmonary disease, unspecified, J45.40 - Moderate persistent asthma, uncomplicated, R06.2 - Wheezing, R07.89 - Other chest pain, Z91.09 - Other allergy status, other than to drugs and biological substances AMB EKG-In Office Today R07.89 - Other chest pain Complete Blood Count Auto Diff Today J44.9 - Chronic obstructive pulmonary disease, unspecified, J45.40 - Moderate persistent asthma, uncomplicated, R06.2 - Wheezing, R07.89 - Other chest pain, Z91.09 - Other allergy status, other than to drugs and biological substances PFT pulmonary function test Today J44.9 - Chronic obstructive pulmonary disease, unspecified Medications: New ipratropium bromide 17 mcg/actuation 2 puffs inhalation Q8H 12.9 grams 0RF Discontinued loratadine Discontinued Reason: Doctor's Order 10 mg PO DAILY 10 tabs 0RF fluconazole (Diflucan) may repeat second dose 72 hrs after first dose if symptoms persist Discontinued Reason: Patient Completed Course 150 mg PO Q3D 2 doses 2 tabs 0RF Coding Level of Care Code Est Pt Level 4 (81825) Diagnoses Chest tightness R07.89 Panlobular emphysema J43.1 COPD type: emphysema Emphysema type: panlobular Moderate persistent asthma without complication J45.40 Asthma complication type: uncomplicated Wheezing R06.2 Environmental allergies Z91.09 Class 1 obesity due to excess calories without serious comorbidity with body mass index (BMI) of 31.0 to 31.9 in adult E66.09; Z68.31 Body mass index: BMI 31.0-31.9 Obesity classification: adult class 1 (BMI 30 - 34.9) Serious obesity comorbidity presence: without serious comorbidity CPT Codes EKG - CPT: 16935-[id number], Complete ([id number])
== END 2023-05-15 14:42 | disposition home or self-care (01) ==
PROVIDERS: PCP Internal Medicine; Visit Provider Internal Medicine
DX: R07.89 Other chest pain (principal); J43.1 Panlobular emphysema; R06.2 Wheezing; Z91.09 Other allergy status, other than to drugs and biological substances; E66.09 Other obesity due to excess calories; Z68.31 Body mass index [BMI] 31.0-31.9, adult
CPT/HCPCS: 93000; 99214

== ENCOUNTER 2023-05-22 07:53 | Outpatient (REF) | payer OTHER, SELFPAY ==
[2023-05-22 11:21] LABS: MANUAL DIFF FLAG NO
[2023-05-22 11:31] LABS: Basophils Percent Auto 0.5 % (0-2); Eosinophils Absolute Auto 0.5 X10*3/uL (0.0-0.4); Hematocrit 46.9 % (37.0-47.0); Hemoglobin 15.2 g/dl (12.0-16.0); Imm Gran Abs Auto 0.02 X10*3/uL (0.00-0.03); Imm Gran Pct Auto 0.3 % (0.0-0.4); Lymphocytes Percent Auto 30.6 % (20-40); Mean Corpuscular HGB Conc 32.4 g/dl (31.0-35.0); Mean Corpuscular Volume 95.5 fL (80.0-98.0); Monocytes Absolute Auto 0.5 X10*3/uL (0.1-1.2); Monocytes Percent Auto 7.6 % (2-11); Neutrophils Absolute Auto 3.5 x10*3/uL (2.0-8.3); Platelet Count 271 X10*3/uL (160-400); Red Blood Count 4.91 X10*6/uL (4.20-5.50); Red Cell Distribution Width 13.4 % (11.0-16.0); White Blood Count 6.5 X10*3/uL (4.8-10.8)
[2023-05-22 11:45] LABS: Alanine Aminotransferase 20 U/L (0-31); Albumin Level 4.1 g/dL (3.5-5.0); Alkaline Phosphatase 50 U/L (39-117); Anion Gap 11 (12-20); Aspartate Amino Transferase 19 U/L (5-31); Bilirubin Total 0.4 mg/dL (0.0-1.0); Blood Urea Nitrogen 17 mg/dL (9-16); Calcium 9.3 mg/dL (8.4-10.2); Carbon Dioxide 28 mmol/L (22-29); Chloride 107 mmol/L (96-108); Estimated Glomerular Filt Rate > 60; Glucose Random 84 mg/dL (60-115); Potassium 4.4 mmol/L (3.3-5.1); Sodium 142 mmol/L (135-145); Total Protein 6.9 g/dL (6.5-8.0)
== END 2023-05-22 07:54 | disposition home or self-care (01) ==
LOC: HO.HMGCLDS 07:53
PROVIDERS: PCP Internal Medicine; Visit Provider Internal Medicine
DX: R07.89 Other chest pain (principal); J44.9 Chronic obstructive pulmonary disease, unspecified; J45.40 Moderate persistent asthma, uncomplicated; Z91.09 Other allergy status, other than to drugs and biological substances
CPT/HCPCS: 36415; 80053; 85025

== ENCOUNTER 2023-06-26 14:08 | Inpatient (IN) | payer OTHER, SELFPAY ==
--- NOTE | ~2023-06-26 | XR_ITS ---
EXAMINATION: XR CHEST 2 VIEW CLINICAL INFORMATION: Cough, shortness of breath COMPARISON: 09/18/2022 TECHNIQUE: PA and lateral views of the chest obtained. FINDINGS: The lungs are clear. There are no pleural effusions. The cardiomediastinal silhouette is normal. XR/XR chest 2V IMPRESSION: No acute cardiopulmonary disease.
[2023-06-26 14:10] VITALS: BP 110/77; PULSE 105; RESP 17; TEMP 36.4; O2SAT 89; BMI 34.0
--- NOTE | 2023-06-26 14:12 | ED_ITS ---
HPI - SOB/Dyspnea General Chief Complaint: Dyspnea Stated Complaint: Difficulty breathing Time Seen by Provider: 06/26/23 17:44 History of Present Illness HPI Narrative: Pt is a 62yo female who presents to the ED with difficulty breathing, nausea, and upper back pain that started yesterday. Pt notes subjective fevers, chills, diarrhea, a productive cough of yellow sputum, and burning pain in the lungs and back. Pt notes relief of the burning with inhaler use. Pt has a hx of COPD and states baseline O2 is 93%. She reports no current home O2 use but notes that last time she was discharged from the hospital she was sent home on home O2. She then felt better without the O2 and sent it back. Related Data Home Medications Medication Instructions Recorded Confirmed multivitamin (Daily Multi-Vitamin 1 tab PO DAILY 09/18/22 05/15/23 tablet) Previous Rx's Medication Instructions Recorded albuterol sulfate 90 mcg/actuation 1 inh inhalation QID PRN shortness 09/21/21 aerosol inhaler of breath or wheezing #6.7 grams Symbicort 160 mcg-4.5 2 puff inhalation BID 30 days 06/28/22 mcg/actuation HFA aerosol inhaler #10.2 grams (budesonide-formoterol) cetirizine 10 mg tablet (Zyrtec) 10 mg PO DAILY PRN allergy 10/06/22 symptoms 90 days #90 tabs clotrimazole 10 mg shakira 10 mg mucous membrane TID 7 days 10/06/22 #21 tabs ipratropium bromide 17 2 puff inhalation Q8H #12.9 grams 05/15/23 mcg/actuation HFA aerosol inhaler Allergies Allergy/AdvReac Type Severity Reaction Status Date / Time Seasonal Allergies Allergy Intermediate Itchy Eyes Verified 05/15/23 13:03 shellfish derived Allergy Intermediate HIVES Verified 05/15/23 13:03 [SHELLFISH DERIVED] cat dander [CAT] Allergy Mild PRURITUS, Verified 05/15/23 13:03 SNEEZING fluticasone [Advair Diskus] AdvReac Intermediate powder Verified 05/15/23 13:03 inhalers cause choking salmeterol [Advair Diskus] AdvReac Intermediate powder Verified 05/15/23 13:03 inhalers cause choking wixela AdvReac Intermediate powder Uncoded 05/15/23 13:03 inhalers cause choking Review of Systems 2 Constitutional: Constitutional: Reports body ache(s), Reports chills, Denies fever(s), Reports headache(s), Reports lethargy, Reports malaise, Reports poor appetite and Reports weakness ENT: Reports headache(s) Cardiovascular: Cardiovascular: Denies chest pain and Reports dyspnea Respiratory: Respiratory: Reports change in phlegm color, Reports chest congestion, Reports cough, Reports pain with cough, Reports dyspnea and Reports wheezing Gastrointestinal: Gastrointestinal: Denies abdominal pain, Reports diarrhea, Reports nausea and Denies vomiting Genitourinary: Comments: Foul-smelling urine, but no painful urination Musculoskeletal: Musculoskeletal: Reports back pain and Reports myalgias Neurologic: Reports headache(s) and Reports weakness Allergic/Immunologic: Allergic/Immunologic: Reports wheezing PMFSH Past Medical History Medical History Former smoker Shortness of breath COVID-19 vaccine series completed Post-operative nausea and vomiting Arthritis COPD (chronic obstructive pulmonary disease) Asthma Surgical History Hx of hysterectomy History of total left hip replacement Hx of foot surgery H/O colonoscopy Family History Family History Maternal Aunt Substance use disorder Mental health disorder Social History Social History Household Members: Family Housing: Apartment Are you a primary wound care center consultant to a significant other at home: No Do you presently have visiting nurse or other home services: No Alcohol intake: current Alcohol intake frequency: holidays/special occasions only Patient Tobacco Use Status: Former Tobacco user Quit Date: 2011 Tobacco use type: Cigarette Smoked in Last 30 Days: No e-Cigarette/Vaping Use: Never Used Second Hand Smoke Exposure: Yes (BF vapes in same room) Use of substances other than those prescribed or required for medical reasons: No Advance Directives: No Advance Directives Information Provided: No service: No Current occupational status: unemployed Cognitive needs: No Hearing needs: No Vision needs: Yes Physical Exam 2 Vital Signs: Vital Signs: Last Vital Signs Temp 98.4 F 06/26/23 17:59 Pulse 102 H 06/26/23 17:59 Resp 30 H 06/26/23 17:59 BP 149/79 H 06/26/23 17:59 Pulse Ox 94 06/26/23 17:59 O2 Del Method Nasal Cannula 06/26/23 17:59 O2 Flow Rate 4 06/26/23 17:59 BMI result Body Mass Index 34.0 Const: General: healthy appearing, no acute distress, alert and awake N utritional Appearance: well nourished Orientation/consciousness: patient oriented x3 HEENT: Head: Yes normocephalic and Yes atraumatic Eyes: Eyelids: Yes eyelids normal Conjunctivae: conjunctivae normal S clerae: sclerae normal Corneas: corneas normal Pupils: Equal, round and reactive pupils present EOM: EOMs intact bilaterally Neck: Neck: Yes full ROM Resp: Other: Coarse rhonchi throughout with increased respiratory effort Effort & Inspection: able to speak in complete sentences, respiratory effort not decreased and tachypneic Auscultation: not clear to auscultation bilaterally, rhonchi and diminished lung sounds Cardio: Rhythm: regular rhythm GI: Inspection: No distended Palpation (GI): Soft to palpation, not firm, Tenderness to palpation present (GI) suprapubicly, no guarding and not rigid Skin: General skin exam: elasticity normal Neuro: General: patient oriented x3 Cranial nerves: Yes Equal, round and reactive pupils present and Yes Bilaterally intact EOM present Cognition (Neuro): normal cognition Course Course Course Narrative: RME: 62yo F w/PMHx COPD, asthma, obesity, c/o fever Tmax 100.0, SOB, chest burning, & cough x last night. admits to using txs at home w/o relief. States O2 was 83% at home. Admits previously was on home O2 but no longer needs it. denies travel 89% on RA in triage EKG, Labs, CXR, viral testing, bronch protocol ordered Full HPI, ROS and PE to be performed by primary ED provider. Reevaluation(s) Reevaluation #1: Patient is noted to be tachycardic, tachypneic and hypoxic, she meets SIRS criteria and has a documented viral infection with influenza with a subsequent COPD exacerbation. Therefore she technically meets sepsis criteria but there is no evidence of severe sepsis. Patient will be admitted to the medical service. She was given IV fluids, antibiotics, steroids. Blood cultures will be drawn prior to antibiotic administration Time: 18:13 Medications Administered Discontinued Medications Generic Name Dose Route Start Last Admin Trade Name Kavin PRN Reason Stop Dose Admin Albuterol Sulfate 8 puff 06/26/23 14:36 06/26/23 14:43 Albuterol Sulfate 90 Mcg 8 Gm Inhaler INHALE 06/26/23 14:37 8 puff ONCE ONE Administration Medical Decision Making Medical Decision Making [facility] Narrative: 8-year-old female with history of COPD, not currently O2 dependent presents for evaluation of shortness of breath, body aches. She is positive for influenza. She also has coarse rhonchi and wheezing throughout. This is most consistent with COPD exacerbation secondary to influenza infection. The patient is hypoxic to 89% on room air, even with 2 L nasal cannula she was tachypneic with a respiratory rate of 30. Plan for admission. Will treat COPD exacerbation with Solu-Medrol, azithromycin, bronchodilator protocol has already been initiated. Will treat the patient's influenza infection with Tamiflu. She received IV fluids. Differential Diagnosis Differential Diagnoses: The differential diagnosis associated with the presentation includes Influenza COPD exacerbation Bronchitis Pneumonia Sepsis Admission/Observation Consideration of admission/observation: Escalation of care including admission/observation considered Patient has COPD exacerbation secondary to influenza with hypoxia. She technically meets sepsis criteria Lab Data [facility] Lab Attestation statement: I reviewed the patient's lab results. No leukocytosis, patient has an elevated hemoglobin hematocrit likely due to mild hypovolemia. No significant electrolyte abnormalities. BUN is 7 with a creatinine 0.77. 06/26/23 14:27 06/26/23 14:27 Labs: Lab Results 06/26/23 Range/Units 14:27 WBC 10.2 (4.8-10.8) X10*3/uL RBC 5.26 (4.20-5.50) X10*6/uL Hgb 16.2 H (12.0-16.0) g/dl Hct 48.8 H (37.0-47.0) % MCV 92.8 (80.0-98.0) fL MCH 30.8 (27.0-33.0) pg MCHC 33.2 (31.0-35.0) g/dl RDW 13.1 (11.0-16.0) % Plt Count 246 (160-400) X10*3/uL MPV 9.3 L (9.4-12.3) fL Immature Gran % (Auto) 0.5 H (0.0-0.4) % Neut % (Auto) 89.1 H (45-73) % Lymph % (Auto) 4.1 L (20-40) % [place] % (Auto) 5.9 (2-11) % Eos % (Auto) 0.1 (0-4) % Baso % (Auto) 0.3 (0-2) % Lymph # (Auto) 0.4 L (1.2-4.9) X10*3/uL [place] # (Auto) 0.6 (0.1-1.2) X10*3/uL Eos # (Auto) 0.0 (0.0-0.4) X10*3/uL Baso # (Auto) 0.0 (0.0-0.2) X10*3/uL Abs Immat Gran (auto) 0.05 H (0.00-0.03) X10*3/uL Absolute Neuts (auto) 9.1 H (2.0-8.3) x10*3/uL Absolute Nucleated RBC 0.000 (0.0-0.012) X10*3/uL Nucleated RBC % (auto) 0.0 (0.0-0.2) /100WBC PT 12.0 (11.1-13.3) SEC INR 1.0 (0.9-1.1) Sodium 141 (135-145) mmol/L Potassium 3.7 (3.3-5.1) mmol/L Chloride 104 (96-108) mmol/L Carbon Dioxide 23 (22-29) mmol/L Anion Gap 18 (12-20) BUN 7 L (9-16) mg/dL Creatinine 0.77 (0.5-1.4) mg/dL Estim Creat Clear Calc 75.2 Estimated GFR > 60 Random Glucose 126 H (60-115) mg/dL Calcium 9.9 D (8.4-10.2) mg/dL Magnesium 2.1 (1.6-2.6) mg/dL Total Bilirubin 0.6 (0.0-1.0) mg/dL Direct Bilirubin 0.2 (0.0-0.5) mg/dL AST 18 (5-31) U/L ALT 18 (0-31) U/L Alkaline Phosphatase 59 (39-117) U/L Troponin I High Sens < 2.7 (<3.5-17.0) ng/L Total Protein 7.8 (6.5-8.0) g/dL Albumin 4.6 (3.5-5.0) g/dL Influenza Type A (PCR) POSITIVE A (Negative) Influenza Type B (PCR) NEGATIVE (Negative) RSV RNA Qual (PCR) NEGATIVE (Negative) SARS-CoV-2 RNA (RT-PCR) NEGATIVE (Negative) Discharge Plan Discharge Clinical Impression: Sepsis, Asthma exacerbation in COPD, Influenza Patient Disposition: Admitted As Inpatient Prescriptions: No Action multivitamin [Daily Multi-Vitamin] Tablet 1 tab PO DAILY budesonide-formoterol [Symbicort] 160-4.5 mcg/actuation HFA aerosol inhaler 2 puff inhalation BID 30 Days Qty: 10.2 3RF ipratropium bromide 17 mcg/actuation HFA aerosol inhaler 2 puff inhalation Q8H Qty: 12.9 0RF albuterol sulfate 90 mcg/actuation HFA aerosol inhaler 1 inh inhalation QID PRN (Reason: shortness of breath or wheezing) Qty: 6.7 1RF clotrimazole 10 mg shakira 10 mg mucous membrane TID 7 Days Qty: 21 0RF cetirizine [Zyrtec] 10 mg tablet 10 mg PO DAILY PRN (Reason: allergy symptoms) 90 Days Qty: 90 1RF
--- NOTE | 2023-06-26 14:13 | ECG_ITS ---
Test Reason : sob,cp Blood Pressure : / mmHG Vent. Rate : 100 BPM Atrial Rate : 100 BPM P-R Int : 146 ms QRS Dur : 078 ms QT Int : 338 ms P-R-T Axes : 083 078 054 degrees QTc Int : 436 ms Normal sinus rhythm Nonspecific ST abnormality Abnormal ECG When compared with ECG of 18-SEP-2022 06:16, T wave inversion no longer evident in Inferior leads Referred By: Comfort Rivera Electronically Signed By:Tre Rivera
[2023-06-26 14:33] LABS: MANUAL DIFF FLAG NO
[2023-06-26 14:35] LABS: Basophils Percent Auto 0.3 % (0-2); Eosinophils Percent Auto 0.1 % (0-4); Hematocrit 48.8 % (37.0-47.0); Hemoglobin 16.2 g/dl (12.0-16.0); Imm Gran Abs Auto 0.05 X10*3/uL (0.00-0.03); Imm Gran Pct Auto 0.5 % (0.0-0.4); Lymphocytes Absolute Auto 0.4 X10*3/uL (1.2-4.9); Lymphocytes Percent Auto 4.1 % (20-40); Mean Corpuscular HGB Conc 33.2 g/dl (31.0-35.0); Mean Corpuscular Hemoglobin 30.8 pg (27.0-33.0); Mean Corpuscular Volume 92.8 fL (80.0-98.0); Mean Platelet Volume 9.3 fL (9.4-12.3); Monocytes Absolute Auto 0.6 X10*3/uL (0.1-1.2); Monocytes Percent Auto 5.9 % (2-11); Neutrophils Absolute Auto 9.1 x10*3/uL (2.0-8.3); Neutrophils Percent Auto 89.1 % (45-73); Platelet Count 246 X10*3/uL (160-400); Red Blood Count 5.26 X10*6/uL (4.20-5.50); Red Cell Distribution Width 13.1 % (11.0-16.0); White Blood Count 10.2 X10*3/uL (4.8-10.8)
[2023-06-26 14:43] VITALS: PULSE 108; RESP 21; O2SAT 94
[2023-06-26] MEDS: Albuterol Sulfate 90 MCG 8 GM INHALER 8 PUFF INHALE (14:43)
[2023-06-26 14:49] LABS: Alanine Aminotransferase 18 U/L (0-31); Albumin Level 4.6 g/dL (3.5-5.0); Alkaline Phosphatase 59 U/L (39-117); Anion Gap 18 (12-20); Aspartate Amino Transferase 18 U/L (5-31); Bilirubin Direct 0.2 mg/dL (0.0-0.5); Bilirubin Total 0.6 mg/dL (0.0-1.0); Blood Urea Nitrogen 7 mg/dL (9-16); Calcium 9.9 mg/dL (8.4-10.2); Carbon Dioxide 23 mmol/L (22-29); Chloride 104 mmol/L (96-108); Creatinine Clr Calc Pharmacy 75.2; Estimated Glomerular Filt Rate > 60; Glucose Random 126 mg/dL (60-115); Magnesium 2.1 mg/dL (1.6-2.6); Potassium 3.7 mmol/L (3.3-5.1); Sodium 141 mmol/L (135-145); Total Protein 7.8 g/dL (6.5-8.0)
[2023-06-26 14:55] LABS: Troponin-I High Sensitivity < 2.7 ng/L (<3.5-17.0)
[2023-06-26 15:15] LABS: Influenza A PCR POSITIVE (Negative); Influenza B PCR NEGATIVE (Negative); Resp Syncy Virus RNA Qual PCR NEGATIVE (Negative); SARS COV2 PCR INHOUSE NEGATIVE (Negative)
[2023-06-26 17:59] VITALS: BP 149/79; PULSE 102; RESP 30; TEMP 36.9; O2SAT 94
--- NOTE | 2023-06-26 18:00 | PC.NURSE ---
Pt is here for sob since yesterday reports hx of copd. upon arrival to room pt was sating at 88% RA, Pt was placed on 4lt NC, denies using home o2. Expirtory wheezes heard without lung holden. Pt reports cp upon exertion with nausea. With little exertion pt feels extremely sob.
[2023-06-26] MEDS: methylPREDNISolone Sod Succ 125 MG/2 ML VIAL IVPUSH (18:24)
[2023-06-26] MEDS: 0.9 % Sodium Chloride 1,000 ML 999 ML IV (18:24)
[2023-06-26] MEDS: Oseltamivir Phosphate 75 MG CAPSULE PO (18:24)
--- NOTE | 2023-06-26 18:31 | PHA.MEDREC ---
Pharmacy Consult ? Medication Reconciliation Pharmacy has completed the medication reconciliation. Patient has not started Atrovent yet therefore left unconfirmed. Shani Matute, PharmD
[2023-06-26] MEDS: Azithromycin 500 MG in 0.9 % Sodium Chloride 250 ML 125 MG IV (18:34)
--- NOTE | 2023-06-26 18:37 | PC.NURSE ---
x2 sets of bc sent to lab.
--- NOTE | 2023-06-26 19:07 | PM.IMHP ---
History of Present Illness Date of Service: 06/26/23 Chief Complaint: sob ,cough 62year-old female with history of osteoarthritis, former smoker, and moderate persistent asthma/COPD presented to the ED via EMS for evaluation of flu-like symptoms. She states 2 days ago she developed symptoms including myalgias, nasal congestion, rhinorrhea, chest congestion, sore throat, and cough with yellow sputum production. She said she was traveling in a past with somebody who look like had similar symptoms, Yesterday reports symptoms were worsening with development of shortness of breath and wheezing. In ED patient was also complaining of nausea and feeling of vomiting. She did receive DuoNeb treatment, 125 mg IV methylprednisolone. As per ED physician patient was in 89% sats on room air-placed on oxygen. Patient does not have leukocytosis, Chest x-ray negative for any acute cardiopulmonary abnormality. EKG showing sinus tachycardia, rate [address]/T-wave abnormality. She denies any diarrhea, lightheadedness, chest pain. Review of Systems Review of Systems: As above. [facility] Medical History Former smoker Shortness of breath COVID-19 vaccine series completed Post-operative nausea and vomiting Arthritis COPD (chronic obstructive pulmonary disease) Asthma Family History Maternal Aunt Substance use disorder Mental health disorder Surgical History Hx of hysterectomy History of total left hip replacement Hx of foot surgery H/O colonoscopy Social History Household Members: Family Housing: Apartment Are you a primary memory care program resident to a significant other at home: No Do you presently have visiting nurse or other home services: No Alcohol intake: current Alcohol intake frequency: holidays/special occasions only Patient Tobacco Use Status: Former Tobacco user Quit Date: 2011 Tobacco use type: Cigarette Smoked in Last 30 Days: No e-Cigarette/Vaping Use: Never Used Second Hand Smoke Exposure: Yes (BF vapes in same room) Use of substances other than those prescribed or required for medical reasons: No Advance Directives: No Advance Directives Information Provided: No service: No Current occupational status: unemployed Cognitive needs: No Hearing needs: No Vision needs: Yes Meds Allergies Allergy/AdvReac Type Severity Reaction Status Date / Time Seasonal Allergies Allergy Intermediate Itchy Eyes Verified 05/15/23 13:03 shellfish derived Allergy Intermediate HIVES Verified 05/15/23 13:03 [SHELLFISH DERIVED] cat dander [CAT] Allergy Mild PRURITUS, Verified 05/15/23 13:03 SNEEZING fluticasone [Advair Diskus] AdvReac Intermediate powder Verified 05/15/23 13:03 inhalers cause choking salmeterol [Advair Diskus] AdvReac Intermediate powder Verified 05/15/23 13:03 inhalers cause choking wixela AdvReac Intermediate powder Uncoded 05/15/23 13:03 inhalers cause choking Active Medications: Current Medications Albuterol/Ipratropium (Albuterol/Iprat 2.5/0.5mg 3 Ml Ampul.Neb) 3 ml INHALE RQ4H [facility] Albuterol/Ipratropium (Albuterol/Iprat 2.5/0.5mg 3 Ml Ampul.Neb) 3 ml INHALE Q3H PRN PRN Reason: sob Sodium Chloride (Ns) 1,000 mls @ 999 mls/hr IV .Q1H1M [facility] Stop: 06/26/23 19:15 Last Admin: 06/26/23 18:24 Dose: 999 mls/hr Azithromycin 500 mg/ Sodium (Chloride) 250 mls @ 125 mls/hr IV ONCE ONE Stop: 06/26/23 20:03 Last Admin: 06/26/23 18:34 Dose: 125 mls/hr Methylprednisolone Sodium Succinate (Methylprednisolone Sod Succ 40 Mg/Ml Vial) 40 mg IVPUSH BID [facility] Oseltamivir Phosphate (Oseltamivir Phosphate 75 Mg Capsule) 75 mg PO BID [facility] Sodium Chloride (0.9 % Sodium Chloride Flush 3 Ml Syringe) 3 ml IVFLUSH QSHIFT [facility] Home Medications Medication Instructions Recorded Confirmed Last Taken Type multivitamin (Daily Multi-Vitamin 1 tab PO DAILY 09/18/22 06/26/23 09/17/22 History tablet) Physical Exam Vital Signs and Narrative: Vital Signs: Last Vital Signs Temp 98.4 F 06/26/23 17:59 Pulse 102 H 06/26/23 17:59 Resp 30 H 06/26/23 17:59 BP 149/79 H 06/26/23 17:59 Pulse Ox 94 06/26/23 17:59 O2 Del Method Nasal Cannula 06/26/23 17:59 O2 Flow Rate 4 06/26/23 17:59 BMI result Body Mass Index 34.0 Constitutional - Awake and Alert, sob with minimal exertion. Eyes - PERRLA, EOMI Cardiovascular - S1S2, RRR, No edema Respiratory - in entry diminished, bilateral wheezing. Gastrointestinal - NT / ND; +BS; No rebound or guarding Extremities - no calf tenderness bilaterally, no swelling Skin - Warm/Dry Neurological - Alert & oriented x3 Psychological - Appropriate affect Results Labs 06/26/23 14:27 06/26/23 14:27 Labs: Laboratory Results - last 24 hr 06/26/23 06/26/23 14:27 18:18 MCV 92.8 MCH 30.8 MCHC 33.2 RDW 13.1 Plt Count 246 MPV 9.3 L Immature Gran % (Auto) 0.5 H Neut % (Auto) 89.1 H Lymph % (Auto) 4.1 L [place] % (Auto) 5.9 Eos % (Auto) 0.1 Baso % (Auto) 0.3 Lymph # (Auto) 0.4 L [place] # (Auto) 0.6 Eos # (Auto) 0.0 Baso # (Auto) 0.0 Abs Immat Gran (auto) 0.05 H Absolute Neuts (auto) 9.1 H Absolute Nucleated RBC 0.000 Nucleated RBC % (auto) 0.0 PT 12.0 INR 1.0 Anion Gap 18 Estim Creat Clear Calc 75.2 Estimated GFR > 60 Random Glucose 126 H Lactic Acid 1.0 Calcium 9.9 D Magnesium 2.1 Total Bilirubin 0.6 Direct Bilirubin 0.2 AST 18 ALT 18 Alkaline Phosphatase 59 Total Protein 7.8 Albumin 4.6 Influenza Type A (PCR) POSITIVE A Influenza Type B (PCR) NEGATIVE RSV RNA Qual (PCR) NEGATIVE SARS-CoV-2 RNA (RT-PCR) NEGATIVE Imaging Radiologist's Impressions: Impressions Chest X-Ray 06/26/23 15:20 IMPRESSION: No acute cardiopulmonary disease. Assessment and Plan (1) Influenza: Status: Acute (2) Asthma exacerbation in COPD: Status: Acute (3) Sepsis: Status: Acute Plan 61-year-old female with history of osteoarthritis, former smoker, and moderate persistent asthma/COPD admitted for acute asthma/COPD exacerbation with acute hypoxemic respiratory failure. acute hypoxemic respiratory failure- secondary to asthma/COPD exacerbation/influenz A Patient has tachycardia and tachypnea in the setting of flu(possible viral sepsis) added procalcitonin levels. -CXR negative for pneumonia,negative for COVID-19, influenza, RSV. continue supplemental O2 to maintain oximetry around 92%, , nebs, steroids, Tamiflu ,ed also added azithromycin for copd. Nausea/vomiting, myalgia: Possible related to flu Hydration, antiemetic, protein, Hycodan for cough/pain. DVT prophylaxis-Lovenox Full code Patient requires inpatient stay of at least 2 midnights for management of acute asthma/COPD exacerbation with acute hypoxemic respiratory failure requiring supplemental O2, IV steroids , were so influenza A treatment and close monitoring for pulmonary decompensation Above management discussed with patient detail and she understand in agreement with the above plan, patient is full code. Time spent 70 minute. Care Quality Stroke Does the patient have a stroke diagnosis?: No VTE Prior VTE?: No VTE Risk Level:: Medical - moderate - high VTE Device Contraindication: N/A - Device Ordered VTE Drug Contraindication: N/A - Med Ordered
[2023-06-26] MEDS: ondansetron HCL 4 MG/2 ML VIAL IVPUSH (19:21)
--- NOTE | 2023-06-26 19:35 | PC.NURSE ---
Assumed care of pt. Pt sitting upright on stretcher, 4L O2 via NC, observable dyspnea with exertion. Expiratory wheezing heard throughout. IV Abx running. Preparing for admission.
[2023-06-26 19:56] LABS: Procalcitonin 0.03 ng/mL
[2023-06-26] MEDS: Loratadine 10 MG TABLET PO (20:26)
[2023-06-26] MEDS: guaiFEN/Codeine SF 200/20/10ML 10 ML LIQUID PO (20:27)
[2023-06-26] MEDS: Enoxaparin Sodium 40 MG/0.4 ML SYRINGE SUBCUT (20:28)
[2023-06-26] MEDS: Albuterol/Iprat 2.5/0.5MG 3 ML AMPUL.NEB INHALE (20:40)
[2023-06-26] MEDS: Lactated Ringers 1,000 ML 80 ML IVCONT (20:42)
[2023-06-26 20:44] VITALS: PULSE 99; RESP 24; O2SAT 89
[2023-06-26 22:37] VITALS: BMI 32.3
[2023-06-26 22:40] VITALS: BP 154/72; PULSE 99; RESP 20; TEMP 36.3; O2SAT 92
[2023-06-27] VITALS (11 sets, daily range): BP systolic 117–158; BP diastolic 56–71; PULSE 80–104; RESP 16–24; TEMP 36.6–37; O2SAT 91–96
[2023-06-27] MEDS: Albuterol/Iprat 2.5/0.5MG 3 ML AMPUL.NEB INHALE ×6 (00:29→19:44)
[2023-06-27] MEDS: guaiFEN/Codeine SF 200/20/10ML 10 ML LIQUID PO ×2 (04:49→13:12)
[2023-06-27] MEDS: methylPREDNISolone Sod Succ 40 MG/ML VIAL IVPUSH ×2 (09:38→20:49)
[2023-06-27] MEDS: Loratadine 10 MG TABLET PO (09:38)
[2023-06-27] MEDS: Lactated Ringers 1,000 ML 80 ML IVCONT ×2 (09:38→20:52)
[2023-06-27] MEDS: ondansetron HCL 4 MG/2 ML VIAL IVPUSH (09:38)
[2023-06-27] MEDS: 0.9 % Sodium Chloride Flush 3 ML SYRINGE IVFLUSH (09:38)
[2023-06-27] MEDS: Oseltamivir Phosphate 75 MG CAPSULE PO ×2 (09:38→20:49)
--- NOTE | 2023-06-27 09:43 | MHC.CM.PN ---
CM MET WITH PT AT BEDSIDE. PT LIVES ALONE AND HAS NO PRIOR SERVICES. NO RESPIRATORY EQUIPMENT. INDEPENDENT WITH MOBILITY. PT BELEIVES SHE HAS A COPY OF A HCP BUT UNSURE WHERE IT IS. PCP DR. VILLA AT [facility] [place] DP: HOME, NO SERVICES ANTICIPATED. PREFERS TO BE OFF 02 BY THE TIME SHE DC'S. PT HAS OWN RIDE HOME. CM WILL CONTINUE TO FOLLOW FOR DC PLAN/NEEDS.
--- NOTE | 2023-06-27 14:13 | HO.PM.IMPN ---
Subjective Subjective Date of Service: 06/27/23 Interval History: acute hypoxemic respiratory failure- secondary to asthma/COPD exacerbation/influenz A Review of Systems sob similar, still short of breath with minimal exertion, has cough, no fever. Physical Exam Vital Signs: Vital Signs: Last Vital Signs Temp 98 F 06/27/23 07:05 Pulse 80 06/27/23 11:43 Resp 16 06/27/23 11:43 BP 121/59 L 06/27/23 07:05 Pulse Ox 91 L 06/27/23 13:17 O2 Del Method Nasal Cannula 06/27/23 13:17 O2 Flow Rate 2 06/27/23 13:17 BMI result Body Mass Index 32.3 Appearance: Alert.? Oriented X3.?sob. cvs: rrr, [id number] , no murmur res: air entry diminshed ,has b/l wheezing abd: no rebound or guarding ,nt, bs present. ext pulses present , no cyanosis ,. neuro: axo3 , nonfocal. Objective Data Active Medications Albuterol/Ipratropium (Albuterol/Iprat 2.5/0.5mg 3 Ml Ampul.Neb) 3 ml INHALE RQ4H [facility] Last Admin: 06/27/23 11:43 Dose: 3 ml Documented By: BRANDY Albuterol/Ipratropium (Albuterol/Iprat 2.5/0.5mg 3 Ml Ampul.Neb) 3 ml INHALE Q3H PRN PRN Reason: sob Enoxaparin Sodium (Enoxaparin Sodium 40 Mg/0.4 Ml Syringe) 40 mg SUBCUT Q24H [facility] Last Admin: 06/26/23 20:28 Dose: 40 mg Documented By: WILTON Guaifenesin/Codeine Phosphate (Guaifen/Codeine Sf 200/20/10ml 10 Ml Liquid) 10 ml PO Q4H PRN PRN Reason: cough Last Admin: 06/27/23 13:12 Dose: 10 ml Documented By: IVETH Lactated Ringer's (Lr) 1,000 mls @ 80 mls/hr IVCONT .[id number] [facility] Last Admin: 06/27/23 09:38 Dose: 80 mls/hr Documented By: IVETH Loratadine (Loratadine 10 Mg Tablet) 10 mg PO DAILY [facility] Last Admin: 06/27/23 09:38 Dose: 10 mg Documented By: IVETH Methylprednisolone Sodium Succinate (Methylprednisolone Sod Succ 40 Mg/Ml Vial) 40 mg IVPUSH BID [facility] Last Admin: 06/27/23 09:38 Dose: 40 mg Documented By: IVETH Ondansetron HCl (Ondansetron Hcl 4 Mg/2 Ml Vial) 4 mg IVPUSH Q6H [facility] Last Admin: 06/27/23 13:18 Dose: Not Given Documented By: IVETH Non-Admin Reason: Patient Refused Oseltamivir Phosphate (Oseltamivir Phosphate 75 Mg Capsule) 75 mg PO BID [facility] Last Admin: 06/27/23 09:38 Dose: 75 mg Documented By: IVETH Sodium Chloride (0.9 % Sodium Chloride Flush 3 Ml Syringe) 3 ml IVFLUSH QSHIFT [facility] Last Admin: 06/27/23 09:38 Dose: 3 ml Documented By: IVETH Labs 06/26/23 14:27 06/26/23 14:27 Labs: Laboratory Results - last 24 hr 06/26/23 06/26/23 14:27 18:18 MCV 92.8 MCH 30.8 MCHC 33.2 RDW 13.1 Plt Count 246 MPV 9.3 L Immature Gran % (Auto) 0.5 H Neut % (Auto) 89.1 H Lymph % (Auto) 4.1 L [place] % (Auto) 5.9 Eos % (Auto) 0.1 Baso % (Auto) 0.3 Lymph # (Auto) 0.4 L [place] # (Auto) 0.6 Eos # (Auto) 0.0 Baso # (Auto) 0.0 Abs Immat Gran (auto) 0.05 H Absolute Neuts (auto) 9.1 H Absolute Nucleated RBC 0.000 Nucleated RBC % (auto) 0.0 PT 12.0 INR 1.0 Anion Gap 18 Estim Creat Clear Calc 75.2 Estimated GFR > 60 Random Glucose 126 H Lactic Acid 1.0 Calcium 9.9 D Magnesium 2.1 Total Bilirubin 0.6 Direct Bilirubin 0.2 AST 18 ALT 18 Alkaline Phosphatase 59 Total Protein 7.8 Albumin 4.6 Procalcitonin 0.03 Influenza Type A (PCR) POSITIVE A Influenza Type B (PCR) NEGATIVE RSV RNA Qual (PCR) NEGATIVE SARS-CoV-2 RNA (RT-PCR) NEGATIVE Assessment and Plan (1) Influenza: Status: Acute (2) Asthma exacerbation in COPD: Status: Acute Plan 61-year-old female with history of osteoarthritis, former smoker, and moderate persistent asthma/COPD admitted for acute asthma/COPD exacerbation with acute hypoxemic respiratory failure. acute hypoxemic respiratory failure- secondary to asthma/COPD exacerbation/influenz A Patient has tachycardia and tachypnea in the setting of flu(possible viral sepsis) added procalcitonin levels. -CXR negative for pneumonia,negative for COVID-19, influenza, RSV. continue supplemental O2 to maintain oximetry around 92%, , nebs, steroids, Tamiflu ,ed also added azithromycin for copd. Nausea/vomiting, myalgia: Possible related to flu Hydration, antiemetic, protein, Hycodan for cough/pain. overwight : encourge to lose weight,cut down calories . DVT prophylaxis-Lovenox Full code ongoing hospitlisation needs: management of acute asthma/COPD exacerbation with acute hypoxemic respiratory failure requiring supplemental O2, IV steroids , were so influenza A treatment and close monitoring for pulmonary decompensation Quality Stroke Does the patient have a stroke diagnosis?: No VTE Prior VTE?: No VTE Risk Level:: Medical - moderate - high VTE Device Contraindication: N/A - Device Ordered VTE Drug Contraindication: N/A - Med Ordered
[2023-06-27] MEDS: Enoxaparin Sodium 40 MG/0.4 ML SYRINGE SUBCUT (20:49)
[2023-06-27] MEDS: Acetaminophen 325 MG TABLET 650 MG PO (21:15)
[2023-06-28] VITALS (11 sets, daily range): BP systolic 126–147; BP diastolic 64–83; PULSE 74–93; RESP 17–22; TEMP 36–36.6; O2SAT 90–95
[2023-06-28] MEDS: Albuterol/Iprat 2.5/0.5MG 3 ML AMPUL.NEB INHALE ×6 (01:10→20:15)
[2023-06-28] MEDS: Lactated Ringers 1,000 ML 80 ML IVCONT (09:10)
[2023-06-28] MEDS: Loratadine 10 MG TABLET PO (09:14)
[2023-06-28] MEDS: methylPREDNISolone Sod Succ 40 MG/ML VIAL IVPUSH ×2 (09:14→20:10)
[2023-06-28] MEDS: Oseltamivir Phosphate 75 MG CAPSULE PO ×2 (09:14→20:10)
[2023-06-28] MEDS: guaiFEN/Codeine SF 200/20/10ML 10 ML LIQUID PO ×2 (09:15→15:55)
--- NOTE | 2023-06-28 13:25 | MHC.CM.PN ---
Addendum entered by Adela Lynn 06/28/23 15:14: DC CANCELLED. RESPIRATORY WILL EVAL FOR 02 NEEDS IN A.M. CM WILL CONTINUE TO FOLLOW. Original Note: DP: PT HAS BEEN MEDICALLY CLEARED FOR DC HOME, NO SERVICES. PT HAS OWN RIDE HOME
[2023-06-28] MEDS: Azithromycin 500 MG TABLET PO (13:39)
--- NOTE | 2023-06-28 13:39 | PM.DS ---
DS: Providers Provider Date of Service: 06/28/23 Date of admission: 06/26/23 18:59 Date of discharge: 06/28/23 Primary care physician: Salome Pierson MD Attending physician on discharge: Bree Martin Discharging clinician: Bree Martin DS: Diagnosis Discharge Diagnosis (1) Influenza: Status: Acute (2) Asthma exacerbation in COPD: Status: Acute DS: Summary Hospital Course Hospital Course: 62year-old female with history of osteoarthritis, former smoker, and moderate persistent asthma/COPD presented to the ED via EMS for evaluation of flu-like symptoms. She states 2 days ago she developed symptoms including myalgias, nasal congestion, rhinorrhea, chest congestion, sore throat, and cough with yellow sputum production. She said she was traveling in a past with somebody who look like had similar symptoms, Yesterday reports symptoms were worsening with development of shortness of breath and wheezing. In ED patient was also complaining of nausea and feeling of vomiting. She did receive DuoNeb treatment, 125 mg IV methylprednisolone. As per ED physician patient was in 89% sats on room air-placed on oxygen. Patient does not have leukocytosis, Chest x-ray negative for any acute cardiopulmonary abnormality. EKG showing sinus tachycardia, rate [address]/T-wave abnormality. She denies any diarrhea, lightheadedness, chest pain. Hospital course: acute hypoxemic respiratory failure- secondary to asthma/COPD exacerbation/influenz A-patient was started on nebs, steroids, Tamiflu,added po azithromycin: Possible component of acute bronchitis(patient has productive cough with change in sputum yellowish),cxr-No acute cardiopulmonary disease: With above supportive care patient seems to be improved significantly currently off oxygen patient will go home with p.o. steroids and azithromycin and Tamiflu. Blood culture negative at 24 hours, no fever or leukocytosis. Patient is to follow up outpatient with PCP. plan: Please complete prednisone 40 mg daily for 4 more days. Denies any weakness or numbness. 7 more doses.) Azithromycin 250 mg p.o. for 4 more days Above management discussed with the patient in detail length she understand and in agreement with the above plan, time spent 50 minute. Present Time Attestation Discharge coordination time: Greater than 30 minutes Quality: Safe Use of Opioids Does Pt have an Active Cancer Diagnosis on the Problem List?: No Quality: Stroke Does the patient have a stroke diagnosis?: No Physical Exam Vital Signs: Vital Signs: Last Vital Signs Temp 97.9 F 06/28/23 07:31 Pulse 80 06/28/23 11:43 Resp 22 H 06/28/23 11:43 BP 145/71 H 06/28/23 07:31 Pulse Ox 95 06/28/23 07:31 O2 Del Method Nasal Cannula 06/28/23 07:31 O2 Flow Rate 3 06/28/23 07:31 BMI result Body Mass Index 32.3 DS: Data Data Completed and Pending Labs on day of discharge: Preliminary micro results at discharge 06/26/23 18:23 Blood Culture - Preliminary Blood - Venous No growth after 24 hours. 06/26/23 18:18 Blood Culture - Preliminary Blood - Venous No growth after 24 hours. Imaging Chest x-ray: Radiologist's impression: ITS Impressions Chest X-Ray 06/26/23 15:20 IMPRESSION: No acute cardiopulmonary disease. Discharge Plan Discharge Anticipated Discharge Date/Time: 06/28/23 13:08 Patient Disposition: Home, Self-Care Discharge Diagnosis: acute hypoxemic respiratory failure- secondary to asthma/COPD exacerbation/influenz A Referrals: Salome Pierson MD [Primary Care Provider] - 1 Week Discharge Medications: New oseltamivir [Tamiflu] 75 mg Capsule 75 mg PO BID Qty: 7 0RF codeine-guaifenesin 10-100 mg/5 mL Liquid 10 ml PO Q4H PRN (Reason: cough) Qty: 100 0RF loratadine 10 mg Tablet 10 mg PO DAILY Qty: 10 0RF prednisone 20 mg tablet 40 mg PO DAILY Qty: 8 0RF azithromycin 250 mg tablet 250 mg PO DAILY 4 Days Qty: 4 0RF Continued multivitamin [Daily Multi-Vitamin] Tablet 1 tab PO DAILY budesonide-formoterol [Symbicort] 160-4.5 mcg/actuation HFA aerosol inhaler 2 puff inhalation BID 30 Days Qty: 10.2 3RF ipratropium bromide 17 mcg/actuation HFA aerosol inhaler 2 puff inhalation Q8H Qty: 12.9 0RF albuterol sulfate 90 mcg/actuation HFA aerosol inhaler 1 inh inhalation QID PRN (Reason: shortness of breath or wheezing) Qty: 6.7 1RF Discharge Orders: Discharge Order (Routine); Ordered 06/28/23 Ordered By: Bree Martin Diet: Advance to usual diet Activity on Discharge: As tolerated Stand Alone Forms: Patient Portal Discharge page Care Plan Goals: acute hypoxemic respiratory failure- secondary to asthma/COPD exacerbation/influenz A-patient was started on nebs, steroids, Tamiflu,added po azithromycin: Possible component of acute bronchitis(patient has productive cough with change in sputum yellowish): With above supportive care patient seems to be improved significantly currently off oxygen patient will go home with p.o. steroids and azithromycin and Tamiflu. Blood culture negative at 24 hours, no fever or leukocytosis. Patient is to follow up outpatient with PCP. Health Concerns: As above. Plan of Treatment: Please complete prednisone 40 mg daily for 4 more days. Denies any weakness or numbness. 7 more doses.) Azithromycin 250 mg p.o. for 4 more days Assessment: As above. Patient Instructions: Influenza (DC), Acute Respiratory Failure (ED)
--- NOTE | 2023-06-28 15:07 | P.PNIM_ITS ---
Subjective Subjective Date of Service: 06/28/23 Interval History: hypoxia Review of Systems Patient was still short of breath with exertion and was desatting when checked with walking Denies any chest pain, has productive cough, no fever Physical Exam 2 Vital Signs: Vital Signs: Last Vital Signs Temp 97.9 F 06/28/23 07:31 Pulse 80 06/28/23 11:43 Resp 22 H 06/28/23 11:43 BP 145/71 H 06/28/23 07:31 Pulse Ox 90 L 06/28/23 13:41 O2 Del Method Room Air 06/28/23 13:41 O2 Flow Rate 3 06/28/23 07:31 BMI result Body Mass Index 32.3 Appearance: Alert.? Oriented X3.?sob. cvs: rrr, [id number] , no murmur res: air entry diminshed ,has b/l wheezing abd: no rebound or guarding ,nt, bs present. ext pulses present , no cyanosis ,. neuro: axo3 , nonfocal. Objective Data Active Medications Acetaminophen (Acetaminophen 325 Mg Tablet) 650 mg PO Q6H PRN PRN Reason: Pain, Moderate(Pain Scale 4-6) Last Admin: 06/27/23 21:15 Dose: 650 mg Documented By: CLINT Albuterol/Ipratropium (Albuterol/Iprat 2.5/0.5mg 3 Ml Ampul.Neb) 3 ml INHALE RQ4H [facility] Last Admin: 06/28/23 11:43 Dose: 3 ml Documented By: ABHIJIT Albuterol/Ipratropium (Albuterol/Iprat 2.5/0.5mg 3 Ml Ampul.Neb) 3 ml INHALE Q3H PRN PRN Reason: sob Enoxaparin Sodium (Enoxaparin Sodium 40 Mg/0.4 Ml Syringe) 40 mg SUBCUT Q24H [facility] Last Admin: 06/27/23 20:49 Dose: 40 mg Documented By: CLINT Guaifenesin/Codeine Phosphate (Guaifen/Codeine Sf 200/20/10ml 10 Ml Liquid) 10 ml PO Q4H PRN PRN Reason: cough Last Admin: 06/28/23 09:15 Dose: 10 ml Documented By: OSCAR Loratadine (Loratadine 10 Mg Tablet) 10 mg PO DAILY [facility] Last Admin: 06/28/23 09:14 Dose: 10 mg Documented By: OSCAR Methylprednisolone Sodium Succinate (Methylprednisolone Sod Succ 40 Mg/Ml Vial) 40 mg IVPUSH BID [facility] Last Admin: 06/28/23 09:14 Dose: 40 mg Documented By: OSCAR Ondansetron HCl (Ondansetron Hcl 4 Mg/2 Ml Vial) 4 mg IVPUSH Q6H [facility] Last Admin: 06/28/23 13:34 Dose: Not Given Documented By: OSCAR Non-Admin Reason: Patient Refused Oseltamivir Phosphate (Oseltamivir Phosphate 75 Mg Capsule) 75 mg PO BID [facility] Last Admin: 06/28/23 09:14 Dose: 75 mg Documented By: OSCAR Sodium Chloride (0.9 % Sodium Chloride Flush 3 Ml Syringe) 3 ml IVFLUSH QSHIFT [facility] Last Admin: 06/28/23 09:07 Dose: Not Given Documented By: OSCAR Non-Admin Reason: IV Running Labs 06/26/23 14:27 06/26/23 14:27 Microbiology Microbiology Results: Microbiology 06/26/23 18:23 Blood Culture - Preliminary Blood - Venous No growth after 24 hours. 06/26/23 18:18 Blood Culture - Preliminary Blood - Venous No growth after 24 hours. Assessment and Plan (1) Influenza: Status: Acute (2) Asthma exacerbation in COPD: Status: Acute Plan 61-year-old female with history of osteoarthritis, former smoker, and moderate persistent asthma/COPD admitted for acute asthma/COPD exacerbation with acute hypoxemic respiratory failure. acute hypoxemic respiratory failure- secondary to asthma/COPD exacerbation/influenz A Patient has tachycardia and tachypnea in the setting of flu(possible viral sepsis) added procalcitonin levels. -CXR negative for pneumonia,negative for COVID-19, influenza, RSV. continue supplemental O2 to maintain oximetry around 92%, , nebs, steroids, Tamiflu ,ed also added azithromycin for copd. Nausea/vomiting, myalgia: Possible related to flu Hydration, antiemetic, protein, Hycodan for cough/pain. overwight : encourge to lose weight,cut down calories . DVT prophylaxis-Lovenox Full code ongoing hospitlisation needs: management of acute asthma/COPD exacerbation with acute hypoxemic respiratory failure requiring supplemental O2, IV steroids , were so influenza A treatment and close monitoring for pulmonary decompensation Quality Stroke Does the patient have a stroke diagnosis?: No VTE Prior VTE?: No VTE Risk Level:: Medical - moderate - high VTE Device Contraindication: N/A - Device Ordered VTE Drug Contraindication: N/A - Med Ordered
[2023-06-28] MEDS: 0.9 % Sodium Chloride Flush 3 ML SYRINGE IVFLUSH (15:55)
[2023-06-28] MEDS: Enoxaparin Sodium 40 MG/0.4 ML SYRINGE SUBCUT (20:10)
[2023-06-29] VITALS (7 sets, daily range): BP systolic 137–154; BP diastolic 69–73; PULSE 77–112; RESP 17–20; TEMP 36.4–36.7; O2SAT 89–94
[2023-06-29] MEDS: Albuterol/Iprat 2.5/0.5MG 3 ML AMPUL.NEB INHALE ×4 (00:01→11:57)
[2023-06-29] MEDS: 0.9 % Sodium Chloride Flush 3 ML SYRINGE IVFLUSH (00:57)
[2023-06-29] MEDS: guaiFEN/Codeine SF 200/20/10ML 10 ML LIQUID PO (08:47)
[2023-06-29] MEDS: Acetaminophen 325 MG TABLET 650 MG PO (08:47)
[2023-06-29] MEDS: Oseltamivir Phosphate 75 MG CAPSULE PO (08:47)
[2023-06-29] MEDS: Loratadine 10 MG TABLET PO (08:48)
[2023-06-29] MEDS: methylPREDNISolone Sod Succ 40 MG/ML VIAL IVPUSH (08:48)
--- NOTE | 2023-06-29 11:27 | MHC.CM.PN ---
DP: PT HAS BEEN MEDICALLY CLEARED FOR DC HOME, NO SERVICES. PT HAS OWN RIDE HOME.
[2023-06-29] MEDS: Azithromycin 250 MG TABLET PO (12:20)
== END 2023-06-29 15:28 | disposition home health service (06) | DRG 720 ==
LOC: HO.ED 18:18 → HO.EDOVER 20:28 → HO.S3 21:16
PROVIDERS: Physician Assistant; Admitting Provider Internal Medicine; Emergency Provider Emergency Medicine; PCP Internal Medicine; Visit Provider Internal Medicine
DX: A41.89 Other specified sepsis (principal); J96.01 Acute respiratory failure with hypoxia; J10.1 Influenza due to other identified influenza virus with other respiratory manifestations; E66.3 Overweight; Z68.32 Body mass index [BMI] 32.0-32.9, adult; J45.41 Moderate persistent asthma with (acute) exacerbation; Z87.891 Personal history of nicotine dependence; Z79.899 Other long term (current) drug therapy
CPT/HCPCS: 0241U; 36415; 71046; 80048; 80076; 83605; 83735; 84145; 84484; 85025; 85610; 87040; 87076; 87185; 87205; 93005; 94640; 99285; J0456; J1650; J2405; J2920; J2930; J7120

== ENCOUNTER → 2023-06-26 14:13 | Outpatient (BNV) | payer OTHER, SELFPAY | PROVIDERS: Admitting Provider Internal Medicine; Emergency Provider Emergency Medicine; PCP Internal Medicine; Visit Provider Internal Medicine Cardiovascular Disease | DX: R94.31 Abnormal electrocardiogram [ECG] [EKG] (principal) | CPT/HCPCS: 93010 ==

== ENCOUNTER → 2023-06-26 18:00 | Outpatient (BNV) | payer OTHER, SELFPAY | PROVIDERS: Emergency Provider Emergency Medicine; PCP Internal Medicine; Visit Provider Internal Medicine | DX: J11.1 Influenza due to unidentified influenza virus with other respiratory manifestations (principal); J44.1 Chronic obstructive pulmonary disease with (acute) exacerbation; J45.901 Unspecified asthma with (acute) exacerbation | CPT/HCPCS: 99222; 99232; 99239 ==

== ENCOUNTER 2023-07-03 13:44 | Outpatient (AMB) | payer OTHER, SELFPAY ==
--- NOTE | 2023-07-03 13:43 | MHC.PC.OV ---
Vital Signs 07/03/23 13:51 Height 5 ft 1 in Weight 166 lb 2 oz BMI 31.4 BP 138/72 Blood Pressure Location Lt brachial Position Sitting Pulse 63 Pulse Source Pulse Oximeter Pulse Oximetry (%) 99 Oxygen Delivery Method Room Air Intake Visit Reasons: ED F/U~ [facility] Allergies Seasonal Allergies Allergy (Intermediate, Verified 07/03/23 13:43) Itchy Eyes shellfish derived [SHELLFISH DERIVED] Allergy (Intermediate, Verified 07/03/23 13:43) HIVES cat dander [CAT] Allergy (Mild, Verified 07/03/23 13:43) PRURITUS, SNEEZING fluticasone [Advair Diskus] Adverse Reaction (Intermediate, Verified 07/03/23 13:43) powder inhalers cause choking salmeterol [Advair Diskus] Adverse Reaction (Intermediate, Verified 07/03/23 13:43) powder inhalers cause choking wixela Adverse Reaction (Intermediate, Uncoded 05/15/23 13:03) powder inhalers cause choking Medication List - Last Reconciled 07/03/23 by Salome Pierson MD albuterol sulfate 90 mcg/actuation 1 inh inhalation QID PRN codeine-guaifenesin 10-100 mg/5 mL 10 mL PO Q4H PRN ipratropium bromide 17 mcg/actuation 2 puffs inhalation Q8H levofloxacin 500 mg PO DAILY loratadine 10 mg PO DAILY multivitamin (Daily Multi-Vitamin tablet) 1 tab PO DAILY prednisone 40 mg (2 x 20 mg) PO DAILY Symbicort 160-4.5 mcg/actuation (budesonide-formoterol) 2 puffs inhalation BID 30 days NS Tobacco use date assessed: 07/03/23 Dental Screening Dental Screen Date: 07/03/23 HPI ED F/U~ [facility] HPI Details Patient is 62-year-old female came in today for hospital discharge follow-up dated 06/28/2023. Patient have a history of moderate persistent asthma/COPD, former smoker. Admitted for COPD exacerbation with acute hypoxic respiratory failure secondary to influenza a infection. Chest x-ray was negative for pneumonia negative for COVID-19 and RSV Patient got treatment with nebulizer, steroids, Tamiflu and azithromycin was added She improved and then was discharged with a script of Levaquin for 7 days Patient complained of foul-smelling urine in the hospital however test could not be done I have ordered UA for her she can go to the lab when she can. She give urine sample today Meanwhile I would recommend to push more fluids I am adding PPI as she continued to complain of epigastric discomfort. Off and on She will return in September for follow-up [facility] Medical History Former smoker Shortness of breath COVID-19 vaccine series completed Post-operative nausea and vomiting Arthritis COPD (chronic obstructive pulmonary disease) Asthma Surgical History Hx of hysterectomy History of total left hip replacement Hx of foot surgery H/O colonoscopy Family History Maternal Aunt Substance use disorder Mental health disorder Social History Household Members: None Housing: Apartment Are you a primary home care provider to a significant other at home: No Do you presently have visiting nurse or other home services: No Alcohol intake: current Alcohol intake frequency: holidays/special occasions only Patient Tobacco Use Status: Former Tobacco user Quit Date: 2011 Tobacco use type: Cigarette e-Cigarette/Vaping Use: Never Used Second Hand Smoke Exposure: Yes (BF vapes in same room) service: No Current occupational status: unemployed Cognitive needs: No Hearing needs: No Vision needs: Yes Questionnaire Thrive Questionnaire Date Thrive assessed: 06/27/23 JOHNNIE-7 AMB Questionnaire JOHNNIE-7 Date JOHNNIE - 7 assessed: 05/15/23 Source: Developed by Drs. Ja Lara, Donna Ortiz, Celso Mondragon and colleagues, with an educational juanita from [employer]. Review of Systems Const Denies chills and Denies fever(s) ENT Denies epistaxis and Denies nasal discharge Card Denies chest pain Resp Denies chest congestion, Denies cough and Denies hemoptysis GI Denies diarrhea and Denies nausea Skin/Breast Denies rash Neuro Reports no additional complaints Psych Reports no additional complaints Endo Reports no additional complaints Physical exam (Primary Care) Vital Signs: Last Vital Signs Pulse 63 07/03/23 13:51 BP 138/72 07/03/23 13:51 Pulse Ox 99 07/03/23 13:51 Oxygen Delivery Method Room Air 07/03/23 13:51 BMI result Body Mass Index 31.4 Tobacco/Smoking Status: Tobacco use Status Tobacco use date assessed 07/03/23 07/03/23 13:44 Patient Tobacco Use Status Former Tobacco user 07/03/23 13:44 Tobacco use type Cigarette 07/03/23 13:44 e-Cigarette/Vaping Use Never Used 07/03/23 13:44 Thrive Assessment: Date of Thrive Assessment Date Thrive assessed 06/27/23 07/03/23 13:44 Const General: cooperative, comfortable and no acute distress Orientation/consciousness: patient oriented x3 HENMT Head: Yes normocephalic Eyes General: appearance normal, both eyes and all related structures Neck Neck: Yes supple Resp Effort & Inspection: normal respiratory effort, no cough and no stridor Cardio Rhythm: regular rhythm Heart sounds: S1 normal heart sound present and S2 normal heart sound present Skin General skin exam: turgor normal Neuro General: patient oriented x3, tone normal and moves all extremities Extrem Right lower extremity: no edema Left lower extremity: no edema Assessment and Plan Assessment & Plan (1) Hospital discharge follow-up: Code(s): Z09 - Encounter for follow-up examination after completed treatment for conditions other than malignant neoplasm (2) Asthma exacerbation in COPD: Code(s): J44.1 - Chronic obstructive pulmonary disease with (acute) exacerbation; J45.901 - Unspecified asthma with (acute) exacerbation (3) Foul smelling urine: Code(s): R82.90 - Unspecified abnormal findings in urine (4) Epigastric discomfort: Code(s): R10.13 - Epigastric pain Plan Patient is 62-year-old female came in today for hospital discharge follow-up dated 06/28/2023. Patient have a history of moderate persistent asthma/COPD, former smoker. Admitted for COPD exacerbation with acute hypoxic respiratory failure secondary to influenza a infection. Chest x-ray was negative for pneumonia negative for COVID-19 and RSV Patient got treatment with nebulizer, steroids, Tamiflu and azithromycin was added She improved and then was discharged with a script of Levaquin for 7 days Patient complained of foul-smelling urine in the hospital however test could not be done I have ordered UA for her she can go to the lab when she can. She give urine sample today Meanwhile I would recommend to push more fluids I am adding PPI as she continued to complain of epigastric discomfort. Off and on She will return in September for follow-up Orders: Orders UA CC w/rflx Micro + Cult Today R82.90 - Unspecified abnormal findings in urine Medications: New omeprazole 20 mg PO DAILY 90 caps 0RF Epigastric discomfort Coding Level of Care Code Est Pt Level 4 (79627) Diagnoses Hospital discharge follow-up Z09 Asthma exacerbation in COPD J44.1; J45.901 Foul smelling urine R82.90 Epigastric discomfort R10.13
[2023-07-03 13:51] VITALS: BP 138/72; PULSE 63; O2SAT 99; BMI 31.4
== END 2023-07-03 16:33 | disposition home or self-care (01) ==
PROVIDERS: PCP Internal Medicine; Visit Provider Internal Medicine
DX: Z09 Encounter for follow-up examination after completed treatment for conditions other than malignant neoplasm (principal); J44.1 Chronic obstructive pulmonary disease with (acute) exacerbation; J45.901 Unspecified asthma with (acute) exacerbation; R82.90 Unspecified abnormal findings in urine; R10.13 Epigastric pain
CPT/HCPCS: 99214

== ENCOUNTER 2023-07-10 09:47 | Outpatient (REF) | payer OTHER, SELFPAY ==
--- NOTE | 2023-07-10 10:50 | PFT_ITS ---
Indication: COPD Spirometry [FEV1 to FVC 55%; FEV1 1.22 L which is 98% predicted; FVC 2.23 L which is 104% predicted. No significant response to bronchodilators noted. Maximum voluntary ventilation 55% predicted.] Lung Volumes [Total lung capacity 68% predicted; expiratory reserve volume 102% predicted.] Diffusion Capacity [DLCO 68% predicted] Comparisons [None] Interpretation [There is an obstructive ventilatory defect consistent with COPD. No significant response to bronchodilators noted. Moderate decrease in maximum voluntary ventilation secondary to deconditioning although cannot rule out neuromuscular disease. The patient also has a restrictive ventilatory defect consistent with [id number] restrictive lung disease. Need to consider underlying neuromuscular conditions and or parenchymal disease. The patient does have a mild diffusion impairment. Clinical correlation warranted. MTDD
== END 2023-07-10 09:48 | disposition home or self-care (01) ==
LOC: HO.RESP 09:47
PROVIDERS: PCP Internal Medicine; Visit Provider Internal Medicine
DX: J44.9 Chronic obstructive pulmonary disease, unspecified (principal)
CPT/HCPCS: 94010; 94727; 94729

== ENCOUNTER → 2023-07-10 10:13 | Outpatient (BNV) | payer OTHER, SELFPAY | PROVIDERS: PCP Internal Medicine; Visit Provider Hospitalist | DX: J44.9 Chronic obstructive pulmonary disease, unspecified (principal) | CPT/HCPCS: 94060; 94727; 94729 ==

== ENCOUNTER 2023-07-10 11:06 | Outpatient (REF) | payer OTHER, SELFPAY ==
[2023-07-10 13:17] LABS: Appearance Urine Clear; Color Urine Yellow; Glucose Urine UA Negative (Negative); Leukocyte Esterase Urine Negative (Negative); Nitrite Urine Negative (Negative); PH 7.5 (5.0-9.0); Specific Gravity - Urine <= 1.005 (1.005-1.025); Urine Blood Negative (Negative); Urine Ketones Negative (Negative); Urine Protein Negative (Neg-Trace)
== END 2023-07-10 11:07 | disposition home or self-care (01) ==
LOC: HO.HMGCLDS 11:06
PROVIDERS: PCP Internal Medicine; Visit Provider Internal Medicine
DX: R82.90 Unspecified abnormal findings in urine (principal)
CPT/HCPCS: 81003

== ENCOUNTER 2023-09-25 08:44 | Outpatient (AMB) | payer OTHER, SELFPAY ==
[2023-09-25 08:46] VITALS: BP 134/72; PULSE 68; RESP 16; O2SAT 95; BMI 32.1
--- NOTE | 2023-09-25 08:46 | MHC.PC.OV ---
Vital Signs 09/25/23 08:46 Height 5 ft 1 in Weight 170 lb 2 oz BMI 32.1 BP 134/72 Blood Pressure Location Rt brachial Position Sitting Respiration 16 Pulse 68 Pulse Source Pulse Oximeter Pulse Oximetry (%) 95 Oxygen Delivery Method Room Air Intake Visit Reasons: Annual Exam Allergies Seasonal Allergies Allergy (Intermediate, Verified 09/25/23 08:48) Itchy Eyes shellfish derived [SHELLFISH DERIVED] Allergy (Intermediate, Verified 09/25/23 08:48) HIVES cat dander [CAT] Allergy (Mild, Verified 09/25/23 08:48) PRURITUS, SNEEZING fluticasone [Advair Diskus] Adverse Reaction (Intermediate, Verified 09/25/23 08:48) powder inhalers cause choking salmeterol [Advair Diskus] Adverse Reaction (Intermediate, Verified 09/25/23 08:48) powder inhalers cause choking wixela Adverse Reaction (Intermediate, Uncoded 05/15/23 13:03) powder inhalers cause choking Medication List - Last Reconciled 09/25/23 by Salome Pierson MD albuterol sulfate 90 mcg/actuation 1 inh inhalation QID PRN ipratropium bromide 17 mcg/actuation 2 puffs inhalation Q8H multivitamin (Daily Multi-Vitamin tablet) 1 tab PO DAILY Symbicort 160-4.5 mcg/actuation (budesonide-formoterol) 2 puffs inhalation BID 30 days NS Tobacco use date assessed: 09/25/23 Dental Screening Dental Screen Date: 09/25/23 Did you have a dental visit in the last 12 months?: Yes Did you have a dental problem in the last 6 months where you did not have access to dental care?: No Was dental information given to patient?: Patient has dentist HPI Annual Exam HPI Details Patient is a 62-year-old female came in today for physical exam Patient suffers from COPD, restrictive lung disease Currently she is having symptoms, she is using Symbicort, I see that she is supposed to be on ipratropium as well but she is not using it I have sent script along with nebulizer machine and DuoNeb Patient saw Dr. Jones clinical rehab specialist September last year but lost follow-up after that I am placing a new referral she need to be established with Pulmonary and follow-up regularly Mammogram was December of 2021 patient says that she will call in book her own appointment at [facility] Pap smear was 2 weeks ago patient is seeing Hyacinth Hylton at [facility] Colonoscopy was May of [address] Alexis Patient have a history of left hip surgery 6 years ago secondary to arthritis BMI is elevated at 32.1 need to lose weight She also have allergies, I would recommend to start using cetirizine as spring is coming Patient will return in 1 year for follow-up, she need to be following up with Pulmonary regularly [facility] Medical History Former smoker Shortness of breath COVID-19 vaccine series completed Post-operative nausea and vomiting Arthritis COPD (chronic obstructive pulmonary disease) Asthma Surgical History Hx of hysterectomy History of total left hip replacement Hx of foot surgery H/O colonoscopy Family History Maternal Aunt Substance use disorder Mental health disorder Social History Household Members: None Housing: Apartment Are you a primary managed care manager to a significant other at home: No Do you presently have visiting nurse or other home services: No Alcohol intake: current Alcohol intake frequency: holidays/special occasions only Patient Tobacco Use Status: Former Tobacco user Quit Date: 2011 Tobacco use type: Cigarette e-Cigarette/Vaping Use: Never Used Second Hand Smoke Exposure: Yes (BF vapes in same room) service: No Current occupational status: unemployed Cognitive needs: No Hearing needs: No Vision needs: Yes Questionnaire PHQ-9 Over the last 2 weeks, how often have you been bothered by any of the following problems? 1. Little interest or pleasure in doing things: not at all 2. Feeling down, depressed, or hopeless: not at all 3. Trouble falling or staying asleep, or sleeping too much: several days 4. Feeling tired or having little energy: several days 5. Poor appetite or overeating: several days 6. Feeling bad about yourself - or that you are a failure or have let yourself or your family down: not at all 7. Trouble concentrating on things, such as reading the newspaper or watching television: several days 8. Moving or speaking so slowly that other people could have noticed. Or the opposite - being so fidgety or restless that you have been moving around a lot more than usual: not at all 9. Thoughts that you would be better off or of hurting yourself in some way: not at all Total score: 4 Depression Screening Interpretation: Negative Depression Screening Done: Yes 16067 - PHQ-9 Billing: Yes Source: Developed by Drs. Ja Lara, Donna Ortiz, Celso Mondragon and colleagues, with an educational juanita from [employer]. Thrive Questionnaire Date Thrive assessed: 09/25/23 I am a: Patient What is your living situation today?: I have a steady place to live Within the past 12 months, did the food you bought not last and you didn't have the money to get more?: Never true Within the past 12 months, did you worry whether your food would run out before you got money to buy more?: Never true Do you have trouble paying for medicines?: No Do you have trouble getting transportation to medical appointments?: No Do you have trouble paying your heating and electricity bill?: No Do you have trouble taking care of your child, family member or friend?: No Do you have trouble with day-to-day activities such as bathing, preparing meals, shopping, managing finances, etc.?: No Are you currently unemployed and looking for a job?: No Are you interested in more education?: No Please select the resources that you would like help with: Paying for medicine Currently or been in a relationship where the following occur: no concerns reported THRIVE Score: 0 AUDIT C Alcohol Use Questionnaire (AUDIT-C) 1. How often do you have a drink containing alcohol?: 2-4 times a month 2. How many drinks containing alcohol do you have on a typical day when you are drinking?: 1 or 2 3. How often do you have six or more drinks on one occasion?: Never Total Score: 2 Score Reviewed/Action Taken: Yes JOHNNIE-7 AMB Questionnaire JOHNNIE-7 Date JOHNNIE - 7 assessed: 09/25/23 Feeling nervous, anxious, or on edge: 1 = Several days Not being able to stop or control worryin = Not at all Worrying too much about different things: 1 = Several days Trouble relaxin = More than half the days Being so restless that it is hard to sit still: 1 = Several days Becoming easily annoyed or irritable: 0 = Not at all Feeling afraid as if something awful might happen: 0 = Not at all Total JOHNNIE-7 score (0-4 normal; 5-9 mild; 10-14 moderate; 15-21 severe): 5 Source: Developed by Drs. Ja Lara, Donna Ortiz, Celso Mondragon and colleagues, with an educational juanita from [employer]. JOHNNIE-7 Assessment Billing JOHNNIE-7 Assessment Tool: JOHNNIE-7 Assessment 97168 Review of Systems Const Denies chills, Denies fever(s) and Denies headache(s) Eyes Denies blurry vision ENT Denies headache(s), Denies nasal discharge, Denies nasal obstruction, Denies odynophagia and Denies sinus pain Card Denies chest pain at rest and Denies chest pain with activity Resp Denies hemoptysis GI Denies diarrhea, Denies odynophagia, Denies vomiting and Denies hematemesis Reports as per HPI Musc Denies abnormal gait Skin/Breast Reports as per HPI Neuro Denies Neuro-related abnormal movements, Denies Abnormal speech present, Denies abnormal gait, Denies headache(s) and Denies Sensory deficit (Neuro) Psych Denies mood swings and Denies paranoia Endo Reports as per HPI Alf/Lymph Reports as per HPI Aller/Immun Reports as per HPI Physical exam (Primary Care) Vital Signs: Last Vital Signs Pulse 68 09/25/23 08:46 Resp 16 09/25/23 08:46 BP 134/72 09/25/23 08:46 Pulse Ox 95 09/25/23 08:46 Oxygen Delivery Method Room Air 09/25/23 08:46 BMI result Body Mass Index 32.1 Tobacco/Smoking Status: Tobacco use Status Tobacco use date assessed 09/25/23 09/25/23 08:50 Patient Tobacco Use Status Former Tobacco user 09/25/23 08:50 Tobacco use type Cigarette 09/25/23 08:50 e-Cigarette/Vaping Use Never Used 09/25/23 08:50 PHQ-9: PHQ-9 Score PHQ-9: Total score 4 09/25/23 09:31 Depression Screening Interpretation: Negative Thrive Assessment: Date of Thrive Assessment Date Thrive assessed 09/25/23 09/25/23 08:50 Currently or been in a relationship where the following occur: no concerns reported Const General: cooperative, comfortable and no acute distress Orientation/consciousness: patient oriented x3 HENMT Head: Yes normocephalic and Yes atraumatic Eyes General: appearance normal, both eyes and all related structures Pupils: Equal, round and reactive pupils present EOM: EOMs intact bilaterally Neck Neck: Yes supple and No lymphadenopathy Thyroid: Thyroid normal Lymphatic: no lymphadenopathy noted Resp Other: Mild wheezing with deep breath lateral at the bases Effort & Inspection: normal respiratory effort and able to speak in complete sentences Cardio Heart sounds: S1 normal heart sound present and S2 normal heart sound present GI Palpation (GI): Soft to palpation and nontender Auscultation: normal bowel sounds General: Yes no CVA tenderness Back/Spine/Pelvis Back: no CVA tenderness Skin General skin exam: elasticity normal and turgor normal Neuro General: patient oriented x3 and gait normal Cranial nerves: Yes Equal, round and reactive pupils present Speech: No Abnormal speech present Sensory Exam: No Sensory deficit (Neuro) Coordination: tandem gait normal and Romberg test negative Extrem General: Yes normal exam except as noted and No edema Assessment and Plan Assessment & Plan (1) Encounter for general adult medical examination with abnormal findings: Code(s): Z00.01 - Encounter for general adult medical examination with abnormal findings (2) Obesity due to excess calories: Code(s): E66.09 - Other obesity due to excess calories Qualifiers: Body mass index: BMI 31.0-31.9 Obesity classification: adult class 1 (BMI 30 - 34.9) Serious obesity comorbidity presence: without serious comorbidity Qualified Code(s): E66.09 - Other obesity due to excess calories; Z68.31 - Body mass index [BMI] 31.0-31.9, adult (3) Environmental allergies: Code(s): Z91.09 - Other allergy status, other than to drugs and biological substances (4) Wheezing: Code(s): R06.2 - Wheezing (5) COPD (chronic obstructive pulmonary disease): Code(s): J44.9 - Chronic obstructive pulmonary disease, unspecified Qualifiers: COPD type: emphysema Emphysema type: panlobular Qualified Code(s): J43.1 - Panlobular emphysema (6) Asthma, moderate persistent: Code(s): J45.40 - Moderate persistent asthma, uncomplicated Qualifiers: Asthma complication type: uncomplicated Qualified Code(s): J45.40 - Moderate persistent asthma, uncomplicated (7) Impaired fasting blood sugar: Code(s): R73.01 - Impaired fasting glucose Plan Patient is a 62-year-old female came in today for physical exam Patient suffers from COPD, restrictive lung disease Currently she is having symptoms, she is using Symbicort, I see that she is supposed to be on ipratropium as well but she is not using it I have sent script along with nebulizer machine and DuoNeb Patient saw Dr. Jones clinical rehab specialist September of last year but lost follow-up after that I am placing a new referral she need to be established with Pulmonary and follow-up regularly Mammogram was December of 2021 patient says that she will call in book her own appointment at [facility] Pap smear was 2 weeks ago patient is seeing Hyacinth Hylton at [facility] Colonoscopy was May of [address] Alexis Patient have a history of left hip surgery 6 years ago secondary to arthritis BMI is elevated at 32.1 need to lose weight She also have allergies, I would recommend to start using cetirizine as spring is Patient will return in 1 year for follow-up, she need to be following up with Pulmonary regularly Medications: Refilled ipratropium bromide 17 mcg/actuation 2 puffs inhalation Q8H 12.9 grams 1RF Coding Level of Care Code Est Pt Prev Care 40-64y(49986) Diagnoses Encounter for general adult medical examination with abnormal findings Z00.01 Class 1 obesity due to excess calories without serious comorbidity with body mass index (BMI) of 31.0 to 31.9 in adult E66.09; Z68.31 Body mass index: BMI 31.0-31.9 Obesity classification: adult class 1 (BMI 30 - 34.9) Serious obesity comorbidity presence: without serious comorbidity Environmental allergies Z91.09 Wheezing R06.2 Panlobular emphysema J43.1 COPD type: emphysema Emphysema type: panlobular Moderate persistent asthma without complication J45.40 Asthma complication type: uncomplicated Impaired fasting blood sugar R73.01 Additional Codes JOHNNIE-7 Assessment Billing - JOHNNIE-7 Assessment Tool: JOHNNIE-7 Assessment [id number] ([id number])
== END 2023-09-25 10:06 | disposition home or self-care (01) ==
PROVIDERS: PCP Internal Medicine; Visit Provider Internal Medicine
DX: Z00.00 Encounter for general adult medical examination without abnormal findings (principal); J43.1 Panlobular emphysema; E66.09 Other obesity due to excess calories; Z68.31 Body mass index [BMI] 31.0-31.9, adult; Z91.09 Other allergy status, other than to drugs and biological substances; R06.2 Wheezing; J45.40 Moderate persistent asthma, uncomplicated; R73.01 Impaired fasting glucose
CPT/HCPCS: 99396

== ENCOUNTER 2023-11-19 14:48 | Outpatient (AMB) | payer OTHER, SELFPAY ==
[2023-11-19 14:52] VITALS: PULSE 73; O2SAT 95; BMI 31.7
--- NOTE | 2023-11-19 14:52 | A.OFFVIS_ITS ---
Vital Signs 11/19/23 14:52 Height 5 ft 1 in Weight 168 lb BMI 31.7 Pulse 73 Pulse Source Pulse Oximeter Pulse Oximetry (%) 95 Oxygen Delivery Method Room Air Intake Visit Reasons: COPD Spring Internship Required: No Allergies Seasonal Allergies Allergy (Intermediate, Verified 11/19/23 14:54) Itchy Eyes shellfish derived [SHELLFISH DERIVED] Allergy (Intermediate, Verified 11/19/23 14:54) HIVES cat dander [CAT] Allergy (Mild, Verified 11/19/23 14:54) PRURITUS, SNEEZING fluticasone [Advair Diskus] Adverse Reaction (Intermediate, Verified 11/19/23 14:54) powder inhalers cause choking salmeterol [Advair Diskus] Adverse Reaction (Intermediate, Verified 11/19/23 14:54) powder inhalers cause choking wixela Adverse Reaction (Intermediate, Uncoded 11/19/23 14:54) powder inhalers cause choking HPI Comments Details: The patient is a 61-year-old female with history of osteoarthritis, former smoker, and moderate persistent asthma/COPD presented to the ED via EMS for evaluation of flu-like symptoms.? She states 2 days ago she developed symptoms including myalgias, nasal congestion, rhinorrhea, chest congestion, sore throat, and cough with yellow sputum production.? Yesterday reports symptoms were worsening with development of shortness of breath and wheezing.? Early this morning, reports oximetry of 83% on room air and called EMS.? On arrival, found to be hypoxic to 86% and placed on 5 L supplemental O2 via OxyMask.? She was also tachycardic to 122, tachypneic to 26, no hypotension.? She did receive DuoNeb treatment, 125 mg IV methylprednisolone, and IV magnesium in the ambulance.? The her viral swab was positive for enterovirus/rhinovirus. X-ray was reassuring. She has been on Solu-Medrol and in addition to the nebulized therapy. However she has been slow to recover. Therefore Pulmonary is consulted. I did review the chest x-ray. No significant findings there. She still having wheezing on examination. She is also expectorating mucus. Hard for her to expectorate at times. Moderate severity. Therefore will start treating her for postviral bacterial infection and also continue the nebulized therapy. The patient will also benefit from additional expectorants. Her oxygen requirements are going down slowly. I did explain to the patient that she may need oxygen upon discharge while this process completely heals. But she is already making positive changes. 11/19/2023 the patient is here for hospital follow-up visit. She has had very eventful few months with worsening respiratory symptoms. She had been admitted to the hospital with acute hypoxic respiratory failure. She responded well to high levels of IV steroids. 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 She was placed on Symbicort seems to be responding well to that. She was also given the Atrovent inhaler although she has not been using that because is not sure about it. The patient was also given a nebulizer although she does not use it. She did bring it in I did give her instructions on how to use the nebulizer. We also reviewed her medications and may further adjustments. She continues have significant wheezing on examination. Although she thought she was not supposed to take her inhalers today. the patient does have underlying allergies. She has had testing in the past. We talked about considering rechecking levels at this time specially since she has severe persistent asthma and may benefit from biologic therapy. The patient is reluctant to trying to many medications. I did request that she can get the blood work so we can further look for options for her. We did review her chest x-ray demonstrating no acute disease. the patient did have pulmonary function studies demonstrating moderate to severe COPD. But, in part this is due to uncontrolled asthma. [facility] Medical History (Updated 11/19/23 @ 22:55 by Linus Jones MD) Allergies Bacteremia Chronic allergic rhinitis Former smoker Shortness of breath COVID-19 vaccine series completed Post-operative nausea and vomiting Arthritis COPD (chronic obstructive pulmonary disease) Asthma Surgical History Hx of hysterectomy History of total left hip replacement Hx of foot surgery H/O colonoscopy Family History Maternal Aunt Substance use disorder Mental health disorder Social History Household Members: None Housing: Apartment Are you a primary clinical care manager to a significant other at home: No Do you presently have visiting nurse or other home services: No Alcohol intake: current Alcohol intake frequency: holidays/special occasions only Patient Tobacco Use Status: Former Tobacco user Quit Date: 2011 Tobacco use type: Cigarette e-Cigarette/Vaping Use: Never Used Second Hand Smoke Exposure: Yes (BF vapes in same room) service: No Current occupational status: unemployed Cognitive needs: No Hearing needs: No Vision needs: Yes Review of Systems Const Denies chills, Denies fever(s) and Denies headache(s) Eyes Denies blurry vision ENT Denies headache(s), Reports nasal congestion, Reports nasal discharge and Denies odynophagia Card Denies chest pain at rest, Denies chest pain with activity and Reports dyspnea on exertion Resp Reports cough, Denies hemoptysis, Reports dyspnea on exertion and Reports wheezing GI Denies diarrhea, Denies odynophagia, Denies vomiting and Denies hematemesis Musc Denies abnormal gait Skin/Breast Reports as per HPI Neuro Denies Neuro-related abnormal movements, Denies Abnormal speech present, Denies abnormal gait, Denies headache(s) and Denies Sensory deficit (Neuro) Psych Denies mood swings and Denies paranoia Endo Reports as per HPI Alf/Lymph Reports as per HPI Aller/Immun Reports as per HPI and Reports wheezing Physical Exam Vital Signs: Last Vital Signs Pulse 73 11/19/23 14:52 Pulse Ox 95 11/19/23 14:52 Oxygen Delivery Method Room Air 11/19/23 14:52 BMI result Body Mass Index 31.7 Const General: comfortable HEENT Head: Yes normocephalic Neck Neck: Yes supple Chest Chest palpation & inspection: normal inspection of the chest Resp Effort & Inspection: normal respiratory effort Auscultation: wheezes and diminished lung sounds Cardio Heart sounds: S1 normal heart sound present and S2 normal heart sound present GI Palpation (GI): Soft to palpation Neuro Speech: No Abnormal speech present Sensory Exam: No Sensory deficit (Neuro) Extrem General: Yes no clubbing, cyanosis or edema Assessment & Plan Assessment & Plan (1) Asthma: Code(s): J45.909 - Unspecified asthma, uncomplicated Category: Medical Qualifiers: Asthma severity: severe Asthma persistence: persistent Asthma complication type: uncomplicated Qualified Code(s): J45.50 - Severe persistent asthma, uncomplicated (2) Chronic allergic rhinitis: Code(s): J30.9 - Allergic rhinitis, unspecified Category: Medical (3) Bacteremia: Comment: fusobacterium Code(s): R78.81 - Bacteremia Category: Medical (4) Allergies: Code(s): T78.40XA - Allergy, unspecified, initial encounter Category: Medical Qualifiers: Encounter type: initial encounter Qualified Code(s): T78.40XA - Allergy, unspecified, initial encounter Plan continue Symbicort start Spiriva stop Atrovent TAO as needed Bloodwork/Allergy testing start Singulair consider Biologic therapy if no better F/U 2-3 months Orders: Orders Hypersensitive Pneumonitis Prf Today J30.9 - Allergic rhinitis, unspecified, J44.1 - Chronic obstructive pulmonary disease with (acute) exacerbation, J45.901 - Unspecified asthma with (acute) exacerbation, R78.81 - Bacteremia, R91.8 - Other nonspecific abnormal finding of lung field, T78.40XA - Allergy, unspecified, initial encounter Immunoglobulin E Today J30.9 - Allergic rhinitis, unspecified, J44.1 - Chronic obstructive pulmonary disease with (acute) exacerbation, J45.901 - Unspecified asthma with (acute) exacerbation, R78.81 - Bacteremia, T78.40XA - Allergy, unspecified, initial encounter Resp Allergy Profile Region I Today J30.9 - Allergic rhinitis, unspecified, J44.1 - Chronic obstructive pulmonary disease with (acute) exacerbation, J45.901 - Unspecified asthma with (acute) exacerbation, R78.81 - Bacteremia, R91.1 - Solitary pulmonary nodule, T78.40XA - Allergy, unspecified, initial encounter Blood Culture X2 Today J30.9 - Allergic rhinitis, unspecified, J44.1 - Chronic obstructive pulmonary disease with (acute) exacerbation, J45.901 - Unspecified asthma with (acute) exacerbation, R78.81 - Bacteremia, T78.40XA - Allergy, unspecified, initial encounter Complete Blood Count Auto Diff Today J30.9 - Allergic rhinitis, unspecified, J44.1 - Chronic obstructive pulmonary disease with (acute) exacerbation, J45.901 - Unspecified asthma with (acute) exacerbation, R78.81 - Bacteremia, T78.40XA - Allergy, unspecified, initial encounter Immunoglobulins,IgG IgA IgM Today J30.9 - Allergic rhinitis, unspecified, J44.1 - Chronic obstructive pulmonary disease with (acute) exacerbation, J45.901 - Unspecified asthma with (acute) exacerbation, R78.81 - Bacteremia, T78.40XA - Allergy, unspecified, initial encounter Erythrocyte Sedimentation Rate Today J30.9 - Allergic rhinitis, unspecified, J44.1 - Chronic obstructive pulmonary disease with (acute) exacerbation, J45.901 - Unspecified asthma with (acute) exacerbation, R78.81 - Bacteremia, T78.40XA - Allergy, unspecified, initial encounter Medications: New montelukast (Singulair) 10 mg PO BEDTIME 30 days 30 tabs 11RF J45.909 - Unspecified asthma, uncomplicated montelukast (Singulair) 10 mg PO BEDTIME 30 days 30 tabs 11RF J45.909 - Unspecified asthma, uncomplicated tiotropium bromide 2.5 mcg/actuation (Spiriva Respimat) 2 puffs inhalation DAILY 30 days 1 ea 11RF Discontinued ipratropium bromide 17 mcg/actuation Discontinued Reason: Doctor's Order 2 puffs inhalation Q8H 12.9 grams 1RF Coding Level of Care Code Est Pt Level 5 (66964) Diagnoses Severe persistent asthma without complication J45.50 Asthma severity: severe Asthma persistence: persistent Asthma complication type: uncomplicated Chronic allergic rhinitis J30.9 Bacteremia R78.81 Allergy, initial encounter T78.40XA Encounter type: initial encounter Time Spent (min) 35
== END 2023-11-19 15:20 | disposition home or self-care (01) ==
PROVIDERS: PCP Internal Medicine; Referring Provider Internal Medicine; Visit Provider Hospitalist
DX: J45.50 Severe persistent asthma, uncomplicated (principal); J30.9 Allergic rhinitis, unspecified; R78.81 Bacteremia; T78.40XA Allergy, unspecified, initial encounter
CPT/HCPCS: 99214

== ENCOUNTER → 2023-11-19 14:48 | Outpatient (BNVA) | payer OTHER, SELFPAY | PROVIDERS: PCP Internal Medicine; Referring Provider Internal Medicine; Visit Provider Hospitalist | DX: J45.50 Severe persistent asthma, uncomplicated (principal); J30.9 Allergic rhinitis, unspecified; R78.81 Bacteremia; T78.40XA Allergy, unspecified, initial encounter | CPT/HCPCS: 99212 ==

== ENCOUNTER 2023-11-22 08:25 | Outpatient (REF) | payer OTHER, SELFPAY ==
[2023-11-22 10:36] LABS: MANUAL DIFF FLAG NO
[2023-11-22 10:46] LABS: Basophils Absolute Auto 0.1 X10*3/uL (0.0-0.2); Basophils Percent Auto 1.1 % (0-2); Eosinophils Absolute Auto 0.4 X10*3/uL (0.0-0.4); Eosinophils Percent Auto 6.8 % (0-4); Hematocrit 46.9 % (37.0-47.0); Hemoglobin 15.7 g/dl (12.0-16.0); Imm Gran Abs Auto 0.01 X10*3/uL (0.00-0.03); Imm Gran Pct Auto 0.2 % (0.0-0.4); Lymphocytes Absolute Auto 1.7 X10*3/uL (1.2-4.9); Lymphocytes Percent Auto 30.2 % (20-40); Mean Corpuscular HGB Conc 33.5 g/dl (31.0-35.0); Mean Corpuscular Hemoglobin 31.2 pg (27.0-33.0); Mean Corpuscular Volume 93.1 fL (80.0-98.0); Monocytes Absolute Auto 0.4 X10*3/uL (0.1-1.2); Monocytes Percent Auto 6.7 % (2-11); Neutrophils Absolute Auto 3.1 x10*3/uL (2.0-8.3); Platelet Count 272 X10*3/uL (160-400); Red Blood Count 5.04 X10*6/uL (4.20-5.50); White Blood Count 5.7 X10*3/uL (4.8-10.8)
[2023-11-22 11:43] LABS: Erythrocyte Sedimentation Rate 2 MM/HR (0-20)
[2023-11-24 09:29] LABS: IgA 181 mg/dL (47-310); IgG 645 mg/dL (600-1640); IgM 78 mg/dL (50-300)
[2023-11-26 21:28] LABS: Immunoglobulin E 79 kU/L (<OR=114)
[2023-12-02 14:04] LABS: Asperg fumigatus Precip Abs NEGATIVE (NEGATIVE); Micropoly faeni Abs NEGATIVE (NEGATIVE); Pigeon serum Abs NEGATIVE (NEGATIVE); Saccharo pora viridis Abs NEGATIVE (NEGATIVE); Thermo candidus Abs NEGATIVE (NEGATIVE); Thermoa vulgaris #1 NEGATIVE (NEGATIVE)
== END 2023-11-22 08:26 | disposition home or self-care (01) ==
LOC: HO.HMGCLDS 08:25
PROVIDERS: PCP Internal Medicine; Visit Provider Hospitalist
DX: J44.1 Chronic obstructive pulmonary disease with (acute) exacerbation (principal); J30.9 Allergic rhinitis, unspecified; J45.901 Unspecified asthma with (acute) exacerbation; R78.81 Bacteremia; R91.8 Other nonspecific abnormal finding of lung field; T78.40XA Allergy, unspecified, initial encounter
CPT/HCPCS: 36415; 82784; 82785; 85025; 85652; 86331; 86606; 86609; 87040

== ENCOUNTER 2024-01-16 08:31 | Outpatient (AMB) | payer OTHER, SELFPAY ==
--- NOTE | 2024-01-16 08:35 | MHC.OFFVIS ---
Vital Signs 01/16/24 08:49 Height 5 ft 1 in Weight 160 lb BMI 30.2 Pulse 71 Pulse Source Pulse Oximeter Pulse Oximetry (%) 95 Oxygen Delivery Method Room Air Intake Visit Reasons: COPD Allergies Seasonal Allergies Allergy (Intermediate, Verified 11/19/23 14:54) Itchy Eyes shellfish derived [SHELLFISH DERIVED] Allergy (Intermediate, Verified 11/19/23 14:54) HIVES cat dander [CAT] Allergy (Mild, Verified 11/19/23 14:54) PRURITUS, SNEEZING fluticasone [Advair Diskus] Adverse Reaction (Intermediate, Verified 11/19/23 14:54) powder inhalers cause choking salmeterol [Advair Diskus] Adverse Reaction (Intermediate, Verified 11/19/23 14:54) powder inhalers cause choking wixela Adverse Reaction (Intermediate, Uncoded 11/19/23 14:54) powder inhalers cause choking HPI Comments Details: The patient is a 63-year-old female with history of osteoarthritis, former smoker, and moderate persistent asthma/COPD presented to the ED via EMS for evaluation of flu-like symptoms.? She states 2 days ago she developed symptoms including myalgias, nasal congestion, rhinorrhea, chest congestion, sore throat, and cough with yellow sputum production.? Yesterday reports symptoms were worsening with development of shortness of breath and wheezing.? Early this morning, reports oximetry of 83% on room air and called EMS.? On arrival, found to be hypoxic to 86% and placed on 5 L supplemental O2 via OxyMask.? She was also tachycardic to 122, tachypneic to 26, no hypotension.? She did receive DuoNeb treatment, 125 mg IV methylprednisolone, and IV magnesium in the ambulance.? The her viral swab was positive for enterovirus/rhinovirus. X-ray was reassuring. She has been on Solu-Medrol and in addition to the nebulized therapy. However she has been slow to recover. Therefore Pulmonary is consulted. I did review the chest x-ray. No significant findings there. She still having wheezing on examination. She is also expectorating mucus. Hard for her to expectorate at times. Moderate severity. Therefore will start treating her for postviral bacterial infection and also continue the nebulized therapy. The patient will also benefit from additional expectorants. Her oxygen requirements are going down slowly. I did explain to the patient that she may need oxygen upon discharge while this process completely heals. But she is already making positive changes. 11/19/2023 the patient is here for hospital follow-up visit. She has had very eventful few months with worsening respiratory symptoms. She had been admitted to the hospital with acute hypoxic respiratory failure. She responded well to high levels of IV steroids. 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 She was placed on Symbicort seems to be responding well to that. She was also given the Atrovent inhaler although she has not been using that because is not sure about it. The patient was also given a nebulizer although she does not use it. She did bring it in I did give her instructions on how to use the nebulizer. We also reviewed her medications and may further adjustments. She continues have significant wheezing on examination. Although she thought she was not supposed to take her inhalers today. the patient does have underlying allergies. She has had testing in the past. We talked about considering rechecking levels at this time specially since she has severe persistent asthma and may benefit from biologic therapy. The patient is reluctant to trying to many medications. I did request that she can get the blood work so we can further look for options for her. We did review her chest x-ray demonstrating no acute disease. the patient did have pulmonary function studies demonstrating moderate to severe COPD. But, in part this is due to uncontrolled asthma. 01/16/2024 the patient is here for pulmonary follow-up visit. Overall she has doing a lot better. She continues on the Symbicort with good effect. The patient is also confused about the other inhalers. She did not start the Spiriva. She feels like she is doing better and does not think she needs it. In addition to that she was concerned about the singular. We did look over her blood work. No significant abnormalities noted. She has a strong immune system. Her IgE slightly elevated. I do believe that the singular will be helpful for her. She is going to restart that. And she is going to hold off on the Spiriva at this time. She does have a nebulizer although she does not needed right now. Her last chest x-ray was back from 07/04/2023 without any acute disease. Otherwise the patient is doing well will plan to follow-up in the spring. If she has any issues prior to that she will call for an earlier assessment. [facility] Medical History (Updated 11/19/23 @ 22:55 by Linus Jones MD) Allergies Bacteremia Chronic allergic rhinitis Former smoker Shortness of breath COVID-19 vaccine series completed Post-operative nausea and vomiting Arthritis COPD (chronic obstructive pulmonary disease) Asthma Surgical History Hx of hysterectomy History of total left hip replacement Hx of foot surgery H/O colonoscopy Family History Maternal Aunt Substance use disorder Mental health disorder Social History Household Members: None Housing: Apartment Are you a primary janitor caretaker to a significant other at home: No Do you presently have visiting nurse or other home services: No Alcohol intake: current Alcohol intake frequency: holidays/special occasions only Patient Tobacco Use Status: Former Tobacco user Tobacco use type: Cigarette e-Cigarette/Vaping Use: Never Used Second Hand Smoke Exposure: Yes (BF vapes in same room) service: No Current occupational status: unemployed Cognitive needs: No Hearing needs: No Vision needs: Yes Review of Systems Const Denies chills, Denies fever(s) and Denies headache(s) Eyes Denies blurry vision ENT Denies headache(s), Reports nasal congestion, Reports nasal discharge and Denies odynophagia Card Denies chest pain at rest, Denies chest pain with activity and Reports dyspnea on exertion Resp Reports cough, Denies hemoptysis, Reports dyspnea on exertion and Reports wheezing GI Denies diarrhea, Denies odynophagia, Denies vomiting and Denies hematemesis Musc Denies abnormal gait Skin/Breast Reports as per HPI Neuro Denies Neuro-related abnormal movements, Denies Abnormal speech present, Denies abnormal gait, Denies headache(s) and Denies Sensory deficit (Neuro) Psych Denies mood swings and Denies paranoia Endo Reports as per HPI Alf/Lymph Reports as per HPI Aller/Immun Reports as per HPI and Reports wheezing Physical Exam Vital Signs: Last Vital Signs Pulse 71 01/16/24 08:49 Pulse Ox 95 01/16/24 08:49 Oxygen Delivery Method Room Air 01/16/24 08:49 BMI result Body Mass Index 30.2 Const General: comfortable HEENT Head: Yes normocephalic Neck Neck: Yes supple Chest Chest palpation & inspection: normal inspection of the chest Resp Effort & Inspection: normal respiratory effort Auscultation: no wheezes and diminished lung sounds Cardio Heart sounds: S1 normal heart sound present and S2 normal heart sound present GI Palpation (GI): Soft to palpation Neuro Speech: No Abnormal speech present Sensory Exam: No Sensory deficit (Neuro) Extrem General: Yes no clubbing, cyanosis or edema Assessment & Plan Assessment & Plan (1) Asthma: Code(s): J45.909 - Unspecified asthma, uncomplicated Category: Medical Qualifiers: Asthma complication type: uncomplicated Asthma persistence: persistent Asthma severity: severe Qualified Code(s): J45.50 - Severe persistent asthma, uncomplicated (2) Chronic allergic rhinitis: Code(s): J30.9 - Allergic rhinitis, unspecified Category: Medical (3) Allergies: Code(s): T78.40XA - Allergy, unspecified, initial encounter Category: Medical Qualifiers: Encounter type: initial encounter Qualified Code(s): T78.40XA - Allergy, unspecified, initial encounter Plan continue Symbicort hold Spiriva stop Atrovent TAO as needed start Singulair F/U 6-8 months Medications: New albuterol sulfate 90 mcg/actuation (Ventolin HFA) 2 puffs inhalation QID 30 days PRN 18 grams 11RF shortness of breath or wheezing budesonide-formoterol 160-4.5 mcg/actuation 2 puffs inhalation BID 30 days 10.2 grams 11RF J44.89 - Other specified chronic obstructive pulmonary disease Coding Level of Care Code Est Pt Level 4 (60493) Diagnoses Severe persistent asthma without complication J45.50 Asthma complication type: uncomplicated Asthma persistence: persistent Asthma severity: severe Chronic allergic rhinitis J30.9 Allergy, initial encounter T78.40XA Encounter type: initial encounter Time Spent (min) 16
[2024-01-16 08:49] VITALS: PULSE 71; O2SAT 95; BMI 30.2
== END 2024-01-16 09:10 | disposition home or self-care (01) ==
PROVIDERS: PCP Internal Medicine; Visit Provider Hospitalist
DX: J45.50 Severe persistent asthma, uncomplicated (principal); J30.9 Allergic rhinitis, unspecified; T78.40XA Allergy, unspecified, initial encounter
CPT/HCPCS: 99214

== ENCOUNTER → 2024-01-16 08:31 | Outpatient (BNVA) | payer OTHER, SELFPAY | PROVIDERS: PCP Internal Medicine; Visit Provider Hospitalist | DX: J44.89 Other specified chronic obstructive pulmonary disease (principal); J45.50 Severe persistent asthma, uncomplicated; J30.9 Allergic rhinitis, unspecified; T78.40XA Allergy, unspecified, initial encounter; X58.XXXA Exposure to other specified factors, initial encounter; Z87.891 Personal history of nicotine dependence; Z79.899 Other long term (current) drug therapy | CPT/HCPCS: 99212 ==

== ENCOUNTER 2024-01-30 13:16 | Outpatient (AMB) | payer OTHER, SELFPAY ==
--- NOTE | 2024-01-30 13:18 | A.OFFPC_ITS ---
Vital Signs 3 01/30/24 13:19 Height 5 ft 1 in Weight 162 lb BMI 30.6 BP 124/78 Blood Pressure Location Rt brachial Position Sitting Pulse 72 Pulse Source Pulse Oximeter Pulse Oximetry (%) 97 Oxygen Delivery Method Room Air Intake Visit Reasons: LT shoulder blade pain/neck Allergies Seasonal Allergies Allergy (Intermediate, Verified 01/30/24 13:20) Itchy Eyes shellfish derived [SHELLFISH DERIVED] Allergy (Intermediate, Verified 01/30/24 13:20) HIVES cat dander [CAT] Allergy (Mild, Verified 01/30/24 13:20) PRURITUS, SNEEZING fluticasone [Advair Diskus] Adverse Reaction (Intermediate, Verified 01/30/24 13:20) powder inhalers cause choking salmeterol [Advair Diskus] Adverse Reaction (Intermediate, Verified 01/30/24 13:20) powder inhalers cause choking wixela Adverse Reaction (Intermediate, Uncoded 01/30/24 13:20) powder inhalers cause choking Medication List - Last Reconciled 01/30/24 by Salome Pierson MD albuterol sulfate 90 mcg/actuation 1 inh inhalation QID PRN albuterol sulfate 90 mcg/actuation (Ventolin HFA) 2 puffs inhalation QID PRN 30 days budesonide-formoterol 160-4.5 mcg/actuation 2 puffs inhalation BID 30 days cetirizine (Zyrtec) 10 mg PO DAILY PRN ipratropium-albuterol 0.5 mg-3 mg(2.5 mg base)/3 mL 3 mL inhalation TID PRN 30 days montelukast (Singulair) 10 mg PO BEDTIME 30 days montelukast (Singulair) 10 mg PO BEDTIME 30 days multivitamin (Daily Multi-Vitamin tablet) 1 tab PO DAILY [nebulizer with supplies As directed] prednisone 20 mg PO DAILY 5 days Symbicort 160-4.5 mcg/actuation (budesonide-formoterol) 2 puffs inhalation BID 30 days NS tiotropium bromide 2.5 mcg/actuation (Spiriva Respimat) 2 puffs inhalation DAILY 30 days Tobacco use date assessed: 09/25/23 Dental Screening Dental Screen Date: 09/25/23 HPI LT shoulder blade pain/neck 2 HPI0 Details Patient is 63-year-old female came in today to be evaluated for upper back pain Patient says that she has had similar problem years ago but at that time it was also radiating to her lower arm left side Patient had cortisone injection twice at that time and that took care of the pain. This time it is in the back area only and it has been 2 weeks Patient says that at times the pain is unbearable but then other time it is not that bad I have ordered x-ray of her lower cervical upper thoracic spine I am treating her with prednisone 20 mg once a day for 5 days And diclofenac sodium 75 mg p.o. b.i.d. with food for 10 days We will book a telemedicine visit in a week to see how she is doing. FORMERLY [facility], [facility]–1983 Medical History Allergies Bacteremia Chronic allergic rhinitis Former smoker Shortness of breath COVID-19 vaccine series completed Post-operative nausea and vomiting Arthritis COPD (chronic obstructive pulmonary disease) Asthma Surgical History Hx of hysterectomy History of total left hip replacement Hx of foot surgery H/O colonoscopy Family History Maternal Aunt Substance use disorder Mental health disorder Social History Household Members: None Housing: Apartment Are you a primary resident care director to a significant other at home: No Do you presently have visiting nurse or other home services: No Alcohol intake: current Alcohol intake frequency: holidays/special occasions only Patient Tobacco Use Status: Former Tobacco user Tobacco use type: Cigarette e-Cigarette/Vaping Use: Never Used Second Hand Smoke Exposure: Yes (BF vapes in same room) service: No Current occupational status: unemployed Cognitive needs: No Hearing needs: No Vision needs: Yes Questionnaire PHQ-9 Over the last 2 weeks, how often have you been bothered by any of the following problems? 1. Little interest or pleasure in doing things: not at all 2. Feeling down, depressed, or hopeless: not at all 3. Trouble falling or staying asleep, or sleeping too much: nearly every day 4. Feeling tired or having little energy: nearly every day 5. Poor appetite or overeating: not at all 6. Feeling bad about yourself - or that you are a failure or have let yourself or your family down: not at all 7. Trouble concentrating on things, such as reading the newspaper or watching television: not at all 8. Moving or speaking so slowly that other people could have noticed. Or the opposite - being so fidgety or restless that you have been moving around a lot more than usual: not at all 9. Thoughts that you would be better off or of hurting yourself in some way: not at all Total score: 6 Depression Screening Interpretation: Negative Depression Screening Done: Yes Source: Developed by Drs. Ja Lara, Donna Ortiz, Celso Mondragon and colleagues, with an educational juanita from [employer]. Thrive Questionnaire Date Thrive assessed: 01/30/24 I am a: Patient What is your living situation today?: I have a steady place to live Within the past 12 months, did the food you bought not last and you didn't have the money to get more?: Often true Within the past 12 months, did you worry whether your food would run out before you got money to buy more?: Never true Do you have trouble paying for medicines?: No Do you have trouble getting transportation to medical appointments?: No Do you have trouble paying your heating and electricity bill?: No Do you have trouble taking care of your child, family member or friend?: No Do you have trouble with day-to-day activities such as bathing, preparing meals, shopping, managing finances, etc.?: No Are you currently unemployed and looking for a job?: No Are you interested in more education?: No Please select the resources that you would like help with: Housing/Group Home Currently or been in a relationship where the following occur: I choose not to answer THRIVE Score: 1 AUDIT C Alcohol Use Questionnaire (AUDIT-C) 1. How often do you have a drink containing alcohol?: 2-4 times a month 2. How many drinks containing alcohol do you have on a typical day when you are drinking?: 1 or 2 3. How often do you have six or more drinks on one occasion?: Never Total Score: 2 JOHNNIE-7 AMB Questionnaire JOHNNIE-7 Date JOHNNIE - 7 assessed: 01/30/24 Feeling nervous, anxious, or on edge: 0 = Not at all Not being able to stop or control worryin = Not at all Worrying too much about different things: 0 = Not at all Trouble relaxin = Not at all Being so restless that it is hard to sit still: 0 = Not at all Becoming easily annoyed or irritable: 3 = Nearly every day Feeling afraid as if something awful might happen: 0 = Not at all Total JOHNNIE-7 score (0-4 normal; 5-9 mild; 10-14 moderate; 15-21 severe): 3 Source: Developed by Drs. Ja Lara, Donna Ortiz, Celso Mondragon and colleagues, with an educational juanita from [employer]. Review of Systems Const Denies chills and Denies fever(s) ENT Denies epistaxis and Denies nasal discharge Card Denies chest pain Resp Denies chest congestion, Denies cough and Denies hemoptysis GI Denies diarrhea and Denies nausea Skin/Breast Denies rash Neuro Reports no additional complaints Psych Reports no additional complaints Endo Reports no additional complaints Physical exam (Primary Care) Vital Signs: Last Vital Signs Pulse 72 01/30/24 13:19 BP 124/78 01/30/24 13:19 Pulse Ox 97 01/30/24 13:19 Oxygen Delivery Method Room Air 01/30/24 13:19 BMI result Body Mass Index 30.6 Tobacco/Smoking Status: Tobacco use Status Tobacco use date assessed 09/25/23 01/30/24 13:24 Patient Tobacco Use Status Former Tobacco user 01/30/24 13:24 Tobacco use type Cigarette 01/30/24 13:24 e-Cigarette/Vaping Use Never Used 01/30/24 13:24 PHQ-9: PHQ-9 Score PHQ-9: Total score 6 01/30/24 13:36 Depression Screening Interpretation: Negative Thrive Assessment: Date of Thrive Assessment Date Thrive assessed 01/30/24 01/30/24 13:24 Currently or been in a relationship where the following occur: I choose not to answer Const General: cooperative, comfortable and no acute distress Orientation/consciousness: patient oriented x3 HENMT Head: Yes normocephalic Eyes General: appearance normal, both eyes and all related structures Neck Neck: Yes supple Resp Effort & Inspection: normal respiratory effort, no cough and no stridor Cardio Heart sounds: S1 normal heart sound present and S2 normal heart sound present Back/Spine/Pelvis Back/spine/pelvis image: 2 1. Site of pain, slight discomfort with pressure, will shoulders with full range of motion, neck is supple Skin General skin exam: turgor normal Neuro General: patient oriented x3, tone normal and moves all extremities Extrem Right lower extremity: no edema Left lower extremity: no edema Assessment and Plan Assessment & Plan (1) Cervicalgia: Code(s): M54.2 - Cervicalgia (2) Upper back pain: Code(s): M54.9 - Dorsalgia, unspecified Plan Patient is 63-year-old female came in today to be evaluated for upper back pain Patient says that she has had similar problem years ago but at that time it was also radiating to her lower arm left side Patient had cortisone injection twice at that time and that took care of the pain. This time it is in the back area only and it has been 2 weeks Patient says that at times the pain is unbearable but then other time it is not that bad I have ordered x-ray of her lower cervical upper thoracic spine I am treating her with prednisone 20 mg once a day for 5 days And diclofenac sodium 75 mg p.o. b.i.d. with food for 10 days We will book a telemedicine visit in a week to see how she is doing. Orders: Orders 2 XR cervical spine 2V Today M54.2 - Cervicalgia, M54.9 - Dorsalgia, unspecified XR thoracic spine 2V Today M54.2 - Cervicalgia, M54.9 - Dorsalgia, unspecified Medications: New 2 prednisone 20 mg PO DAILY 5 tabs 0RF 5 days diclofenac sodium 75 mg PO BID 20 tabs 0RF pain 10 days Coding Level of Care Code Est Pt Level 3 (78878) Diagnoses Cervicalgia M54.2 Upper back pain M54.9
[2024-01-30 13:19] VITALS: BP 124/78; PULSE 72; O2SAT 97; BMI 30.6
== END 2024-01-30 14:20 | disposition home or self-care (01) ==
PROVIDERS: PCP Internal Medicine; Visit Provider Internal Medicine
DX: M54.2 Cervicalgia (principal); M54.9 Dorsalgia, unspecified
CPT/HCPCS: 99213

== ENCOUNTER 2024-01-30 13:34 | Outpatient (REF) | payer OTHER, SELFPAY ==
--- NOTE | ~2024-01-30 | XR_ITS ---
EXAMINATION: XR THORACOLUMBAR SPINE CLINICAL INFORMATION: Cervicalgia, back pain COMPARISON: None available. TECHNIQUE: AP and lateral views of thoracic spine FINDINGS: The vertebral alignment is normal. No intrinsic bony abnormality. The disc heights and neural foramina are well maintained. The endplates and posterior elements are normal. No fracture or subluxation. The surrounding prevertebral soft tissues are unremarkable. XR/XR thoracic spine 2V IMPRESSION: No compression fractures or subluxations are identified. The disc spaces are preserved. No endplate changes are seen. The prevertebral soft tissues are normal. The foramina are patent.
--- NOTE | ~2024-01-30 | XR_ITS ---
EXAMINATION: XR CERVICAL SPINE CLINICAL INFORMATION: Cervicalgia COMPARISON: None available. TECHNIQUE: 3 views of the cervical spine were obtained. FINDINGS: Vertebral bodies are well aligned there is no spondylolysis or spondylolisthesis. There is narrowing of C4-C5 and C6-C7 intervertebral disc spaces pedicles are preserved. Soft tissues unremarkable XR/XR cervical spine 2V IMPRESSION: Mild degenerative changes with narrowing of L4-L5 and C6-C7 intervertebral disc spaces
== END 2024-01-30 13:35 | disposition home or self-care (01) ==
LOC: HO.HMGCX 13:34
PROVIDERS: PCP Internal Medicine; Visit Provider Internal Medicine
DX: M54.2 Cervicalgia (principal); M54.9 Dorsalgia, unspecified
CPT/HCPCS: 72040; 72070

== ENCOUNTER 2024-02-07 07:37 | Outpatient (AMB) | payer OTHER, SELFPAY ==
--- NOTE | 2024-02-07 08:06 | A.OFFPC_ITS ---
Intake Visit Reasons: Follow up Allergies Seasonal Allergies Allergy (Intermediate, Verified 02/07/24 08:06) Itchy Eyes shellfish derived [SHELLFISH DERIVED] Allergy (Intermediate, Verified 02/07/24 08:06) HIVES cat dander [CAT] Allergy (Mild, Verified 02/07/24 08:06) PRURITUS, SNEEZING fluticasone [Advair Diskus] Adverse Reaction (Intermediate, Verified 02/07/24 08:06) powder inhalers cause choking salmeterol [Advair Diskus] Adverse Reaction (Intermediate, Verified 02/07/24 08:06) powder inhalers cause choking wixela Adverse Reaction (Intermediate, Uncoded 01/30/24 13:20) powder inhalers cause choking Medication List - Last Reconciled 02/07/24 by Salome Pierson MD albuterol sulfate 90 mcg/actuation 1 inh inhalation QID PRN albuterol sulfate 90 mcg/actuation (Ventolin HFA) 2 puffs inhalation QID PRN 30 days budesonide-formoterol 160-4.5 mcg/actuation 2 puffs inhalation BID 30 days cetirizine (Zyrtec) 10 mg PO DAILY PRN diclofenac sodium 75 mg PO BID 10 days ipratropium-albuterol 0.5 mg-3 mg(2.5 mg base)/3 mL 3 mL inhalation TID PRN 30 days montelukast (Singulair) 10 mg PO BEDTIME 30 days montelukast (Singulair) 10 mg PO BEDTIME 30 days multivitamin (Daily Multi-Vitamin tablet) 1 tab PO DAILY [nebulizer with supplies As directed] Symbicort 160-4.5 mcg/actuation (budesonide-formoterol) 2 puffs inhalation BID 30 days NS tiotropium bromide 2.5 mcg/actuation (Spiriva Respimat) 2 puffs inhalation DAILY 30 days Tobacco use date assessed: 02/07/24 Dental Screening Dental Screen Date: 02/07/24 Did you have a dental visit in the last 12 months?: Yes Did you have a dental problem in the last 6 months where you did not have access to dental care?: No Was dental information given to patient?: Patient has dentist HPI Follow up HPI Details Patient is 63-year-old female this is a telemedicine visit to follow-up on her neck pain Patient was treated with short course of prednisone and diclofenac 75 mg b.i.d. She is feeling much better her neck pain has resolved She has stopped taking diclofenac as well X-ray reports are still not available Once the reports are available if needed we will take further action. [facility] Medical History Allergies Bacteremia Chronic allergic rhinitis Former smoker Shortness of breath COVID-19 vaccine series completed Post-operative nausea and vomiting Arthritis COPD (chronic obstructive pulmonary disease) Asthma Surgical History Hx of hysterectomy History of total left hip replacement Hx of foot surgery H/O colonoscopy Family History Maternal Aunt Substance use disorder Mental health disorder Social History Household Members: None Housing: Apartment Are you a primary child care development specialist to a significant other at home: No Do you presently have visiting nurse or other home services: No Alcohol intake: current Alcohol intake frequency: holidays/special occasions only Patient Tobacco Use Status: Former Tobacco user Tobacco use type: Cigarette e-Cigarette/Vaping Use: Never Used Second Hand Smoke Exposure: Yes (BF vapes in same room) service: No Current occupational status: unemployed Cognitive needs: No Hearing needs: No Vision needs: Yes Questionnaire PHQ-9 Over the last 2 weeks, how often have you been bothered by any of the following problems? 1. Little interest or pleasure in doing things: not at all 2. Feeling down, depressed, or hopeless: not at all 3. Trouble falling or staying asleep, or sleeping too much: nearly every day 4. Feeling tired or having little energy: nearly every day 5. Poor appetite or overeating: not at all 6. Feeling bad about yourself - or that you are a failure or have let yourself or your family down: not at all 7. Trouble concentrating on things, such as reading the newspaper or watching television: not at all 8. Moving or speaking so slowly that other people could have noticed. Or the opposite - being so fidgety or restless that you have been moving around a lot more than usual: not at all 9. Thoughts that you would be better off or of hurting yourself in some way: not at all Total score: 6 Depression Screening Interpretation: Negative Depression Screening Done: Yes 82310 - PHQ-9 Billing: Yes Source: Developed by Drs. Ja Lara, Donna Ortiz, Celso Mondragon and colleagues, with an educational juanita from [employer]. Thrive Questionnaire Date Thrive assessed: 02/07/24 I am a: Patient What is your living situation today?: I have a steady place to live Within the past 12 months, did the food you bought not last and you didn't have the money to get more?: Often true Within the past 12 months, did you worry whether your food would run out before you got money to buy more?: Never true Do you have trouble paying for medicines?: No Do you have trouble getting transportation to medical appointments?: No Do you have trouble paying your heating and electricity bill?: No Do you have trouble taking care of your child, family member or friend?: No Do you have trouble with day-to-day activities such as bathing, preparing meals, shopping, managing finances, etc.?: No Are you currently unemployed and looking for a job?: No Are you interested in more education?: No Please select the resources that you would like help with: Housing/Retirement Currently or been in a relationship where the following occur: I choose not to answer THRIVE Score: 1 AUDIT C Alcohol Use Questionnaire (AUDIT-C) 1. How often do you have a drink containing alcohol?: 2-4 times a month 2. How many drinks containing alcohol do you have on a typical day when you are drinking?: 1 or 2 3. How often do you have six or more drinks on one occasion?: Never Total Score: 2 Score Reviewed/Action Taken: Yes JOHNNIE-7 AMB Questionnaire JOHNNIE-7 Date JOHNNIE - 7 assessed: 02/07/24 Feeling nervous, anxious, or on edge: 0 = Not at all Not being able to stop or control worryin = Not at all Worrying too much about different things: 0 = Not at all Trouble relaxin = Not at all Being so restless that it is hard to sit still: 0 = Not at all Becoming easily annoyed or irritable: 3 = Nearly every day Feeling afraid as if something awful might happen: 0 = Not at all Total JOHNNIE-7 score (0-4 normal; 5-9 mild; 10-14 moderate; 15-21 severe): 3 Source: Developed by Drs. Ja Lara, Donna Ortiz, Celso Mondragon and colleagues, with an educational juanita from [employer]. JOHNNIE-7 Assessment Billing JOHNNIE-7 Assessment Tool: JOHNNIE-7 Assessment 97425 Review of Systems Const Denies chills and Denies fever(s) ENT Denies epistaxis and Denies nasal discharge Card Denies chest pain Resp Denies chest congestion, Denies cough and Denies hemoptysis GI Denies diarrhea and Denies nausea Skin/Breast Denies rash Neuro Reports no additional complaints Psych Reports no additional complaints Endo Reports no additional complaints Physical exam (Primary Care) Tobacco/Smoking Status: Tobacco use Status Tobacco use date assessed 02/07/24 02/07/24 08:08 Patient Tobacco Use Status Former Tobacco user 02/07/24 08:08 Tobacco use type Cigarette 02/07/24 08:08 e-Cigarette/Vaping Use Never Used 02/07/24 08:08 PHQ-9: PHQ-9 Score PHQ-9: Total score 6 02/07/24 08:26 Depression Screening Interpretation: Negative Thrive Assessment: Date of Thrive Assessment Date Thrive assessed 02/07/24 02/07/24 08:09 Currently or been in a relationship where the following occur: I choose not to answer Telehealth Telehealth Telehealth Platform: [facility] Location of provider rendering services: practice address Location of patient: address on file Patient Identification confirmed using: Name, : Yes Telehealth method: voice only Patient verbally consented to treatment: Yes Patient verbally consented to billing insurance company: Yes Patient informed of any privacy concerns related to visit: Yes Minutes spent on Phone/Video with Pt.: 12 Assessment and Plan Assessment & Plan (1) Cervicalgia: Code(s): M54.2 - Cervicalgia (2) Upper back pain: Code(s): M54.9 - Dorsalgia, unspecified Plan Patient is 63-year-old female this is a telemedicine visit to follow-up on her neck pain Patient was treated with short course of prednisone and diclofenac 75 mg b.i.d. She is feeling much better her neck pain has resolved She has stopped taking diclofenac as well X-ray reports are still not available Once the reports are available if needed we will take further action. 13 minutes spent in care of this patient Medications: Discontinued diclofenac sodium Discontinued Reason: Doctor's Order 75 mg PO BID 10 days 20 tabs 0RF pain Coding Level of Care Code Tele Est Pt Level 3 (89866) Diagnoses Cervicalgia M54.2 Upper back pain M54.9 Additional Codes JOHNNIE-7 Assessment Billing - JOHNNIE-7 Assessment Tool: JOHNNIE-7 Assessment 74067 ([id number])
== END 2024-02-07 08:47 | disposition home or self-care (01) ==
LOC: HO.HMGC 07:37
PROVIDERS: PCP Internal Medicine; Visit Provider Internal Medicine
DX: M54.2 Cervicalgia (principal); M54.9 Dorsalgia, unspecified
CPT/HCPCS: 99213

== ENCOUNTER 2024-04-11 09:38 | Outpatient (REF) | payer OTHER, SELFPAY ==
--- NOTE | ~2024-04-11 | MM_ITS ---
EXAMINATION: MM SCREENING DIGITAL BREAST TOMOSYNTHESIS, BILATERAL CLINICAL INFORMATION: Screening. Asymptomatic. COMPARISON: Mammography: Comparison is made with available priors TECHNIQUE: Digital breast mammography with tomosynthesis is performed in both the craniocaudal and mediolateral oblique views along with computer-aided detection (CAD). FINDINGS: There are scattered areas of fibroglandular density (ACR BI-RADS breast composition Category b). Right breast post surgical changes. There are no significant masses, abnormal calcifications, or other abnormalities. MM/MM tomosynthesis screening BI IMPRESSION: No mammographic evidence of malignancy. ASSESSMENT: BI-RADS BI-RADS 2 - Benign Findings RECOMMENDATION: Routine annual mammography screening. 1 year F/U This examination should not preclude the clinical evaluation of a suspicious palpable abnormality. This patient's information was entered into a reminder system with a target due date for their next mammogram. Electronically signed by: Sari Capone DO 04/23/2024 09:24 AM EDT
== END 2024-04-11 09:39 | disposition home or self-care (01) ==
LOC: HO.MAMMO 09:38
PROVIDERS: PCP Internal Medicine; Visit Provider Internal Medicine
DX: Z12.31 Encounter for screening mammogram for malignant neoplasm of breast (principal)
CPT/HCPCS: 77063; 77067

== ENCOUNTER → 2024-04-11 10:00 | Outpatient (BNV) | payer OTHER, SELFPAY | PROVIDERS: PCP Internal Medicine; Visit Provider Internal Medicine | DX: Z12.31 Encounter for screening mammogram for malignant neoplasm of breast (principal) | CPT/HCPCS: 77063; 77067 ==

== ENCOUNTER 2024-10-21 09:03 | Outpatient (AMB) | payer OTHER, SELFPAY ==
[2024-10-21 09:07] VITALS: BP 148/76; PULSE 76; O2SAT 94; BMI 32.3
--- NOTE | 2024-10-21 09:07 | A.OFFVIS_ITS ---
Vital Signs 10/21/24 09:07 Height 5 ft 1 in Weight 170 lb 13.732 oz BMI 32.3 BP 148/76 H Blood Pressure Location Rt brachial Position Sitting Pulse 76 Pulse Source Pulse Oximeter Pulse Oximetry (%) 94 Oxygen Delivery Method Room Air Intake Visit Reasons: COPD Allergies Seasonal Allergies Allergy (Intermediate, Verified 10/21/24 09:10) Itchy Eyes shellfish derived [SHELLFISH DERIVED] Allergy (Intermediate, Verified 10/21/24 09:10) HIVES cat dander [CAT] Allergy (Mild, Verified 10/21/24 09:10) PRURITUS, SNEEZING fluticasone [Advair Diskus] Adverse Reaction (Intermediate, Verified 10/21/24 09:10) powder inhalers cause choking salmeterol [Advair Diskus] Adverse Reaction (Intermediate, Verified 10/21/24 09:10) powder inhalers cause choking wixela Adverse Reaction (Intermediate, Uncoded 10/21/24 09:10) powder inhalers cause choking HPI Comments Details: The patient is a 63-year-old female with history of osteoarthritis, former smoker, and moderate persistent asthma/COPD presented to the ED via EMS for evaluation of flu-like symptoms.? She states 2 days ago she developed symptoms including myalgias, nasal congestion, rhinorrhea, chest congestion, sore throat, and cough with yellow sputum production.? Yesterday reports symptoms were worsening with development of shortness of breath and wheezing.? Early this morning, reports oximetry of 83% on room air and called EMS.? On arrival, found to be hypoxic to 86% and placed on 5 L supplemental O2 via OxyMask.? She was also tachycardic to 122, tachypneic to 26, no hypotension.? She did receive DuoNeb treatment, 125 mg IV methylprednisolone, and IV magnesium in the ambulance.? The her viral swab was positive for enterovirus/rhinovirus. X-ray was reassuring. She has been on Solu-Medrol and in addition to the nebulized therapy. However she has been slow to recover. Therefore Pulmonary is consulted. I did review the chest x-ray. No significant findings there. She still having wheezing on examination. She is also expectorating mucus. Hard for her to expectorate at times. Moderate severity. Therefore will start treating her for postviral bacterial infection and also continue the nebulized therapy. The patient will also benefit from additional expectorants. Her oxygen requirements are going down slowly. I did explain to the patient that she may need oxygen upon discharge while this process completely heals. But she is already making positive changes. 11/19/2023 the patient is here for hospital follow-up visit. She has had very eventful few months with worsening respiratory symptoms. She had been admitted to the hospital with acute hypoxic respiratory failure. She responded well to high levels of IV steroids. 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 She was placed on Symbicort seems to be responding well to that. She was also given the Atrovent inhaler although she has not been using that because is not sure about it. The patient was also given a nebulizer although she does not use it. She did bring it in I did give her instructions on how to use the nebulizer. We also reviewed her medications and may further adjustments. She continues have significant wheezing on examination. Although she thought she was not supposed to take her inhalers today. the patient does have underlying allergies. She has had testing in the past. We talked about considering rechecking levels at this time specially since she has severe persistent asthma and may benefit from biologic therapy. The patient is reluctant to trying to many medications. I did request that she can get the blood work so we can further look for options for her. We did review her chest x-ray demonstrating no acute disease. the patient did have pulmonary function studies demonstrating moderate to severe COPD. But, in part this is due to uncontrolled asthma. 01/16/2024 the patient is here for pulmonary follow-up visit. Overall she has doing a lot better. She continues on the Symbicort with good effect. The patient is also confused about the other inhalers. She did not start the Spiriva. She feels like she is doing better and does not think she needs it. In addition to that she was concerned about the singular. We did look over her blood work. No significant abnormalities noted. She has a strong immune system. Her IgE slightly elevated. I do believe that the singular will be helpful for her. She is going to restart that. And she is going to hold off on the Spiriva at this time. She does have a nebulizer although she does not needed right now. Her last chest x-ray was back from 07/04/2023 without any acute disease. Otherwise the patient is doing well will plan to follow-up in the spring. If she has any issues prior to that she will call for an earlier assessment. 10/21/2024 the patient is here for a pulmonary follow-up visit. Overall she is doing okay. Spring is the worst season. She has been on Symbicort. She did try the Singulair but then she became concerned that she was going to get hallucinations she stopped it. She has been using Zyrtec instead. Specially since the worst season. She also worse in a [employer] and she is supposed to find inorganic dust. Her last chest x-ray was back in 2022. Will plan to repeat her x-ray in the next visit. The patient will go ahead and optimize her respiratory therapy by switching her Symbicort to Breztri. In addition to that she will continue with respiratory medicine her nebulizer. She does have significant eosinophilia. She may be a good candidate for biologics. Specially if she continues to be symptomatic. Will have her come back in a year with PFTs and a chest x-ray. However, if the patient is no better worse she will call for an earlier assessment. [facility] Medical History Allergies Bacteremia Chronic allergic rhinitis Former smoker Shortness of breath COVID-19 vaccine series completed Post-operative nausea and vomiting Arthritis COPD (chronic obstructive pulmonary disease) Asthma Surgical History Hx of hysterectomy History of total left hip replacement Hx of foot surgery H/O colonoscopy Family History Maternal Aunt Substance use disorder Mental health disorder Social History Household Members: None Housing: Apartment Are you a primary post anesthesia care unit nurse to a significant other at home: No Do you presently have visiting nurse or other home services: No Alcohol intake: current Alcohol intake frequency: holidays/special occasions only Patient Tobacco Use Status: Former Tobacco user Tobacco use type: Cigarette e-Cigarette/Vaping Use: Never Used Second Hand Smoke Exposure: Yes (BF vapes in same room) service: No Current occupational status: unemployed Cognitive needs: No Hearing needs: No Vision needs: Yes Review of Systems Const Denies chills, Denies fever(s) and Denies headache(s) Eyes Denies blurry vision ENT Denies headache(s), Reports nasal congestion, Reports nasal discharge and Denies odynophagia Card Denies chest pain at rest, Denies chest pain with activity and Reports dyspnea on exertion Resp Reports cough, Denies hemoptysis, Reports dyspnea on exertion and Reports wheezing GI Denies diarrhea, Denies odynophagia, Denies vomiting and Denies hematemesis Musc Denies abnormal gait Skin/Breast Reports as per HPI Neuro Denies Neuro-related abnormal movements, Denies Abnormal speech present, Denies abnormal gait, Denies headache(s) and Denies Sensory deficit (Neuro) Psych Denies mood swings and Denies paranoia Endo Reports as per HPI Alf/Lymph Reports as per HPI Aller/Immun Reports as per HPI and Reports wheezing Physical Exam Vital Signs: Last Vital Signs Pulse 76 10/21/24 09:07 BP 148/76 H 10/21/24 09:07 Pulse Ox 94 10/21/24 09:07 Oxygen Delivery Method Room Air 10/21/24 09:07 BMI result Body Mass Index 32.3 Const General: comfortable HEENT Head: Yes normocephalic Neck Neck: Yes supple Chest Chest palpation & inspection: normal inspection of the chest Resp Effort & Inspection: normal respiratory effort Auscultation: wheezes and diminished lung sounds Cardio Heart sounds: S1 normal heart sound present and S2 normal heart sound present GI Palpation (GI): Soft to palpation Neuro Speech: No Abnormal speech present Sensory Exam: No Sensory deficit (Neuro) Extrem General: Yes no clubbing, cyanosis or edema Assessment & Plan Assessment & Plan (1) Asthma: Code(s): J45.909 - Unspecified asthma, uncomplicated Category: Medical Qualifiers: Asthma complication type: uncomplicated Asthma persistence: persistent Asthma severity: severe Qualified Code(s): J45.50 - Severe persistent asthma, uncomplicated (2) Chronic allergic rhinitis: Code(s): J30.9 - Allergic rhinitis, unspecified Category: Medical (3) Allergies: Code(s): T78.40XA - Allergy, unspecified, initial encounter Category: Medical Qualifiers: Encounter type: initial encounter Qualified Code(s): T78.40XA - Allergy, unspecified, initial encounter Plan stop Symbicort start Breztri TAO as needed Duoneb nebs continue Zyrtec stopped Singulair consider Biologic therapy, IL5 inhibitor will work well if her symptoms persist after optimizing respiratory therapy F/U 6-12 months Medications: New smrjcvbamp-wobqorqe-boaakpwgwu 160-9-4.8 mcg/actuation (Breztri Aerosphere) 2 inhalations inhalation BID 10.7 grams 11RF 30 days Refilled ipratropium-albuterol 0.5 mg-3 mg(2.5 mg base)/3 mL 3 mL inhalation TID 30 days PRN 90 mL 6RF wheezing ipratropium-albuterol 0.5 mg-3 mg(2.5 mg base)/3 mL 3 mL inhalation TID PRN 90 mL 6RF wheezing 30 days Coding Level of Care Code Est Pt Level 4 (21876) Diagnoses Severe persistent asthma without complication J45.50 Asthma complication type: uncomplicated Asthma persistence: persistent Asthma severity: severe Chronic allergic rhinitis J30.9 Allergy, initial encounter T78.40XA Encounter type: initial encounter Time Spent (min) 16
--- OUTSIDE RECORDS SUMMARY | 2024-10-21 09:54 | XMS_ITS | Patient Health Record ---
Author Organization [facility] Address [address] [place] [id number] Care Team Providers Care Senior Developer Name Role Phone Dangelo FUENTES, Asma Primary Care Provider Carlos De La Cruz Jr Unavailable [phone] Allergies Allergen (clinical drug ingredient) Drug/Non Drug Allergy documented on EMR Reaction Allergy Type Onset Date Status cats (uncoded) Unknown Allergy Activ e Reason For Referral No Information Medications Medication SIG (Take, Route, Frequency, Duration) Notes Start Date End Date Status MiraLax (colon prep) 17 GM/SCOOP mixed with Gatorade or Crystal Light Orally begin at 5:00 p.m. the day before the procedure for 1 day 04/14/2021 Active Albuterol Sulfate HFA 108 (90 Base) MCG/ACT Inhalation for 18 Activ e Immunizations Vaccine Route Administration Date Status Comme nts Influenza Unknown 04/14/2021 Refused Social History Tobacco Use: Social History Observation Description Date Details (start date - stop date) Former Smoker NA - NA Tobacco Use/Smoking Question Answer Notes Patient is a former smoker How long has it been since you last smoked? 5-10 years Alcohol Screen Question Answer Notes Did you have a drink contain ing alcohol in the past year? Yes How often did you have a dri nk containing alcohol in the past year? Monthly or less (1 point) How many drinks did you have on a typical day when you were drinking in the past year? 1 or 2 drinks (0 point) How often did you have 6 or more drinks on one occasion in the past year? Never (0 point) Points 1 Interpretation Negative Problems Problem Type SNOMED Code ICD Code Onset Dates Problem Status W/U Status Risk Notes Problem 350945308 Colon cancer screening (Z12.11) Active confirmed Problem 37441373 Epigastric pain (R10.13) Active confirmed Problem 450030137 Personal history of colonic polyps (Z86.010) Active confirmed Problem 265759046 Encounter for other preprocedural examination (Z01.818) Active confirmed Plan Of Treatment Future Test Test Name Order Date COLONOSCOPY 04/14/2021 Insurance Providers Payer Name Payer Address Payer Phone Subscriber Number Group Number Insured Name Patient Relationship to Insured Coverage Start Date Coverage End Date [facility] [address] [address] [place], [place] [id number] [phone] [id number] LUZ LEVI Self - patient is the insured [facility] [address] [place] [address] [id number] LUZ LEVI Self - patient is the insured Medical (General) History Medical History History ICD Code asthma/COPD elevated iron seasonal allergies Arthritis left hip lower back and toe Colonoscopy in 05/2016, sessile serrated adenoma, five-year followup Surgical History Surgery Date(Month/Year) left foot arthroplasty hysterectomy hip left replacement
== END 2024-10-21 09:28 | disposition home or self-care (01) ==
LOC: HO.HPS 09:03
PROVIDERS: PCP Internal Medicine; Visit Provider Hospitalist
DX: J45.50 Severe persistent asthma, uncomplicated (principal); J30.9 Allergic rhinitis, unspecified; T78.40XA Allergy, unspecified, initial encounter
CPT/HCPCS: 99214

== ENCOUNTER → 2024-10-21 09:03 | Outpatient (BNVA) | payer OTHER, SELFPAY | PROVIDERS: PCP Internal Medicine; Visit Provider Hospitalist | DX: J45.50 Severe persistent asthma, uncomplicated (principal); J30.9 Allergic rhinitis, unspecified; T78.40XA Allergy, unspecified, initial encounter | CPT/HCPCS: 99212 ==

== ENCOUNTER 2024-12-19 08:43 | Outpatient (AMB) | payer OTHER, SELFPAY ==
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
[2024-12-19 08:53] VITALS: BP 122/80; PULSE 66; RESP 12; TEMP 36.9; O2SAT 92; BMI 32.1
--- OUTSIDE RECORDS SUMMARY | 2024-12-19 08:59 | XMS_ITS | Patient Health Record ---
Author Organization [facility] Address [address] [place] [id number] Care Team Providers Care Composite Worker Name Role Phone Dangelo FUENTES, Asma Primary Care Provider Carlos De La Cruz Jr Unavailable Allergies Allergen (clinical drug ingredient) Drug/Non Drug [...] Problem Status W/U Status Risk Notes Problem [id number] Colon cancer screening (Z12.11) Active confirmed Problem [id number] Epigastric pain (R10.13) Active confirmed Problem 922994567 Personal history of colonic polyps (Z86.010) Active confirmed Problem [id number] Encounter for other preprocedural examination (Z01.818) Active confirmed Plan Of Treatment Future Test Test Name Order Date COLONOSCOPY 04/14/2021 Insurance Providers Payer Name Payer Address Payer Phone Subscriber Number Group Number Insured Name Patient Relationship to Insured Coverage Start Date Coverage End Date [facility] [address] [address] [place], [place] [id number] [phone] [id number] [id number] LEVI Self - patient is the insured MEDICAID OF [employer] [address] [place] [address] [id number] LUZ LEVI Self - patient is the insured Medical (General) History Medical History History ICD Code asthma/COPD elevated iron seasonal allergies Arthritis left hip lower back and toe Colonoscopy in 05/2016, sessile serrated adenoma, five-year followup Surgical History Surgery Date(Month/Year) left foot arthroplasty hysterectomy hip left replacement
== END 2024-12-19 09:46 | disposition home or self-care (01) ==
LOC: HO.HMCC 08:44
PROVIDERS: PCP Internal Medicine; Visit Provider Internal Medicine
DX: Z00.01 Encounter for general adult medical examination with abnormal findings (principal); R42 Dizziness and giddiness; E66.09 Other obesity due to excess calories; Z68.31 Body mass index [BMI] 31.0-31.9, adult; J44.89 Other specified chronic obstructive pulmonary disease; Z91.09 Other allergy status, other than to drugs and biological substances; Z28.39 Other underimmunization status

== ENCOUNTER → 2024-12-19 08:43 | Outpatient (BNVA) | payer OTHER, SELFPAY | PROVIDERS: PCP Internal Medicine; Visit Provider Internal Medicine | DX: Z00.01 Encounter for general adult medical examination with abnormal findings (principal); J45.909 Unspecified asthma, uncomplicated; E66.09 Other obesity due to excess calories; J44.89 Other specified chronic obstructive pulmonary disease; Z91.09 Other allergy status, other than to drugs and biological substances; Z28.39 Other underimmunization status; Z90.710 Acquired absence of both cervix and uterus; Z68.31 Body mass index [BMI] 31.0-31.9, adult; Z79.899 Other long term (current) drug therapy | CPT/HCPCS: 96127; 99212; 99396 ==

== ENCOUNTER 2025-01-06 06:27 | Outpatient (REF) | payer OTHER, SELFPAY ==
--- OUTSIDE RECORDS SUMMARY | 2025-01-06 06:30 | XMS_ITS | Patient Health Record ---
Author Organization [facility] Address [address] [place] [id number] Care Team Providers Care Hand Assembler For Puller Over Name Role Phone Dangelo FUENTES, Asma Primary [...] Problem Status W/U Status Risk Notes Problem [id number] Colon cancer screening (Z12.11) Active confirmed Problem 80022764 Epigastric pain (R10.13) Active confirmed Problem 274983328 Personal history of colonic polyps (Z86.010) Active confirmed Problem 895510279 Encounter for other preprocedural examination (Z01.818) Active confirmed Plan Of Treatment Future Test Test Name Order Date COLONOSCOPY 04/14/2021 Insurance Providers Payer Name Payer Address Payer Phone Subscriber Number Group Number Insured Name Patient Relationship to Insured Coverage Start Date Coverage End Date [facility] [address] [address] [place], [place] [id number] [phone] [id number] LUZ LEVI Self - patient is the insured MEDICAID OF [place] [address] [place] [address] [id number] LUZ LEVI Self - patient is the insured Medical (General) History Medical History History ICD Code asthma/COPD elevated iron seasonal allergies Arthritis left hip lower back and toe Colonoscopy in 05/2016, sessile serrated adenoma, five-year followup Surgical History Surgery Date(Month/Year) left foot arthroplasty hysterectomy hip left replacement
[2025-01-06 10:06] LABS: MANUAL DIFF FLAG NO
[2025-01-06 10:12] LABS: Basophils Absolute Auto 0.1 X10*3/uL (0.0-0.2); Basophils Percent Auto 0.8 % (0-2); Eosinophils Absolute Auto 0.5 X10*3/uL (0.0-0.4); Eosinophils Percent Auto 7.6 % (0-4); Hemoglobin 15.2 g/dl (12.0-16.0); Imm Gran Abs Auto 0.01 X10*3/uL (0.00-0.03); Imm Gran Pct Auto 0.2 % (0.0-0.4); Lymphocytes Absolute Auto 1.8 X10*3/uL (1.2-4.9); Mean Corpuscular HGB Conc 32.3 g/dl (31.0-35.0); Mean Corpuscular Hemoglobin 30.6 pg (27.0-33.0); Mean Corpuscular Volume 94.8 fL (80.0-98.0); Monocytes Absolute Auto 0.5 X10*3/uL (0.1-1.2); Monocytes Percent Auto 7.9 % (2-11); Neutrophils Absolute Auto 3.3 x10*3/uL (2.0-8.3); Neutrophils Percent Auto 54.5 % (45-73); Platelet Count 257 X10*3/uL (160-400); Red Blood Count 4.96 X10*6/uL (4.20-5.50); Red Cell Distribution Width 13.4 % (11.0-16.0); White Blood Count 6.1 X10*3/uL (4.8-10.8)
[2025-01-06 10:43] LABS: Alanine Aminotransferase 24 U/L (0-31); Albumin Level 4.4 g/dL (3.5-5.0); Alkaline Phosphatase 49 U/L (39-117); Anion Gap 13 (12-20); Aspartate Amino Transferase 28 U/L (5-31); Bilirubin Total 0.5 mg/dL (0.0-1.0); Blood Urea Nitrogen 11 mg/dL (9-16); Calcium 9.4 mg/dL (8.4-10.2); Carbon Dioxide 28 mmol/L (22-29); Chloride 107 mmol/L (96-108); Cholesterol 185 mg/dL (<200); Estimated Glomerular Filt Rate > 60; Glucose Fasting 97 mg/dL (60-99); HDL Cholesterol 69 mg/dL (>40); LDL Cholesterol Calculated 103 mg/dL (<100); Potassium 4.3 mmol/L (3.3-5.1); Sodium 144 mmol/L (135-145); TSH reflex Free T4 0.63 uIU/mL (0.32-4.0); Total Protein 6.6 g/dL (6.5-8.0); Triglycerides 65 mg/dL (<150)
[2025-01-10 15:44] LABS: Vitamin D 25-OH, D2 <4 ng/mL; Vitamin D 25-OH, D3 26 ng/mL; Vitamin D 25-OH, Total 26 ng/mL (30-100)
== END 2025-01-06 06:28 | disposition home or self-care (01) ==
LOC: HO.HMGCLDS 06:27
PROVIDERS: PCP Internal Medicine; Visit Provider Internal Medicine
DX: Z00.01 Encounter for general adult medical examination with abnormal findings (principal); E66.09 Other obesity due to excess calories; Z68.31 Body mass index [BMI] 31.0-31.9, adult; J44.89 Other specified chronic obstructive pulmonary disease; Z91.09 Other allergy status, other than to drugs and biological substances; R42 Dizziness and giddiness; Z28.39 Other underimmunization status
CPT/HCPCS: 36415; 80053; 80061; 82306; 84443; 85025

== ENCOUNTER 2025-04-24 07:39 | Outpatient (REF) | payer OTHER, SELFPAY | END 2025-04-24 07:40 | disposition home or self-care (01) | LOC: HO.MAMMO 07:39 | PROVIDERS: PCP Internal Medicine; Visit Provider Internal Medicine | DX: Z12.31 Encounter for screening mammogram for malignant neoplasm of breast (principal) | CPT/HCPCS: 77063; 77067 ==

== ENCOUNTER → 2025-04-24 08:00 | Outpatient (BNV) | payer OTHER, SELFPAY | PROVIDERS: PCP Internal Medicine; Visit Provider Radiology Body Imaging | DX: Z12.31 Encounter for screening mammogram for malignant neoplasm of breast (principal) | CPT/HCPCS: 77063; 77067 ==

== ENCOUNTER 2025-05-12 15:23 | Outpatient (REF) | payer OTHER, SELFPAY ==
[2025-05-13 11:34] LABS: Resp Syncy Virus RNA Qual PCR NEGATIVE (Negative); SARS COV2 PCR INHOUSE NEGATIVE (Negative)
== END 2025-05-12 15:24 | disposition home or self-care (01) ==
LOC: HO.LAB 15:23
PROVIDERS: PCP Internal Medicine; Visit Provider Physician Assistant
DX: J06.9 Acute upper respiratory infection, unspecified (principal); J44.89 Other specified chronic obstructive pulmonary disease; Z79.899 Other long term (current) drug therapy; R09.89 Other specified symptoms and signs involving the circulatory and respiratory systems; Z87.891 Personal history of nicotine dependence
CPT/HCPCS: 87637; 99212

== ENCOUNTER 2025-05-12 15:23 | Outpatient (AMB) | payer OTHER, SELFPAY ==
[2025-05-12 15:36] VITALS: BP 140/80; PULSE 93; TEMP 36.7; O2SAT 91; BMI 31.8
--- NOTE | 2025-05-12 15:36 | AM.OFFWIN_ITS ---
Intake Vital Signs 05/12/25 15:36 Height 5 ft Weight 163 lb BMI 31.8 BP 140/80 H Blood Pressure Location Lt brachial Position Sitting Pulse 93 Pulse Source Pulse Oximeter Temp 98.1 F Temp Source Oral Pulse Oximetry (%) 91 L Oxygen Delivery Method Room Air Intake Visit Reasons: EP Oxygen at 90,loss of voice,difficulty breathing Intake Note: EP complains of difficulty in breathing and stiffly nose started this Sunday. EP also complains of having thick and green sputum. Her Blood Oxygen level is 91%. Patient Tobacco Use Status: Former Tobacco user Allergies Seasonal Allergies Allergy (Intermediate, Verified 05/12/25 15:46) Itchy Eyes shellfish derived (SHELLFISH DERIVED) Allergy (Intermediate, Verified 05/12/25 15:46) HIVES cat dander (CAT) Allergy (Mild, Verified 05/12/25 15:46) PRURITUS, SNEEZING fluticasone (Advair Diskus) Adverse Reaction (Intermediate, Verified 05/12/25 15:46) powder inhalers cause choking salmeterol (Advair Diskus) Adverse Reaction (Intermediate, Verified 05/12/25 15:46) powder inhalers cause choking wixela Adverse Reaction (Intermediate, Uncoded 10/21/24 09:10) powder inhalers cause choking HPI HPI Comments History of Present Illness Details History - The patient is a 64-year-old female pr esenting with symptoms of a viral upper respiratory infection. - The patient has a history of Chronic O bstructive Pulmonary Disease (COPD) and asthma, and is a former smoker. - Symptoms began with a sore throat last week, initially thought to be due to allergies. - The sore throat resolved 3 days ago, b ut nasal congestion and dyspnea developed, with the patient experiencing difficulty breathing and wheezing. - The patient reports using inhalers reg ularly, including Budesonide/Formoterol and Ventolin, and has been using a nebulizer. - The patient noted a decrease in oxygen saturation to 87% during an episode of dyspnea, which improved to 90% with nebulizer use. - The patient reports yellowish-green sp utum production, indicating possible infection. - The patient has been prescribed a new inhaler, Breztri Aerosphere, for about a week. - The patient denies ear pain, sinus eden n, or significant head congestion, but reports occasional sinus congestion. - The patient experienced a low-grade fe bessie, with a maximum temperature of 98.9?F. Review of Systems - Respiratory: Reports dyspnea, wheezing , and productive cough with yellowish- green sputum. Denies hemoptysis. - ENT: Reports sore throat, resolved. De nies ear pain or significant sinus pain. - Constitutional: Reports low-grade feve r, maximum of 98.9?F. All systems reviewed and are unremarkable except as noted in HPI Physical Exam General: Cooperative, healthy appearing, comfortable and no acute distress Orientation/consciousness: Patient oriented x3 Limitations: No limitations Head: Normal to inspection Ears: Hearing grossly normal bilaterally, external ears normal, EAC's normal bilaterally and TM's normal bilaterally Nose: Normal external nose present, Normal nares present and Nasal discharge present, yellowish-green Face and sinus: Normal facial exam and sinuses nontender Mouth: Normal oral and palatal mucosa present and moist mucous membranes Throat: tonsils normal, no exudates, uvula midline, posterior oropharynx erythema Eyes: Appearance normal, both eyes and all related structures Neck: Normal visual inspection, full ROM Respiratory: exp wheezes to auscultation bilaterally. Normal respiratory effort, able to speak in complete sentences, actively coughing, no respiratory distress, not tachypneic, no tripod positioning and no use of accessory muscles Cardiovascular: Regular rate and rhythm. Normal S1 and S2 Skin: No rashes or lesions noted Neuro: Patient oriented x3 Extremities: Normal to inspection and Yes no clubbing, cyanosis or edema PFSH Medical History Allergies Bacteremia Chronic allergic rhinitis Former smoker Shortness of breath COVID-19 vaccine series completed Post-operative nausea and vomiting Arthritis COPD (chronic obstructive pulmonary disease) Asthma Surgical History Hx of hysterectomy History of total left hip replacement Hx of foot surgery H/O colonoscopy Family History Maternal Aunt Substance use disorder Mental health disorder Social History Household Members: None Housing: Apartment Are you a primary neonatal critical care nurse to a significant other at home: No Do you presently have visiting nurse or other home services: No Alcohol intake: current Alcohol intake frequency: holidays/special occasions only Patient Tobacco Use Status: Former Tobacco user Tobacco use type: Cigarette e-Cigarette/Vaping Use: Never Used Second Hand Smoke Exposure: Yes (BF vapes in same room) service: No Current occupational status: unemployed Cognitive needs: No Hearing needs: No Vision needs: Yes Physical Exam Vital Signs: Last Vital Signs Temp 98.1 F 05/12/25 15:36 Pulse 93 05/12/25 15:36 BP 140/80 H 05/12/25 15:36 Pulse Ox 91 L 05/12/25 15:36 Oxygen Delivery Method Room Air 05/12/25 15:36 BMI result Body Mass Index 31.8 Assessment & Plan Assessment & Plan (1) Viral upper respiratory infection: Code(s): J06.9 - Acute upper respiratory infection, unspecified Plan: Patient was informed and verbally consented to the use of an ambient scribe for clinic note documentation during this visit. - VSS, pt well appearing and PE remarkable for exp wheezes throughout. - Initiate prednisone 50 mg daily for five days to reduce inflammation and improve breathing. - Prescribe azithromycin (Z-Vikash) for its anti-inflammatory properties and to cover potential atypical bacterial infections. - Continue current inhaler regimen, including Breztri Aerosphere and Ventolin, to manage symptoms. - Symptomatic treatment with continued use of inhalers and nebulizer as needed for dyspnea. - Monitor symptoms and follow up here or with PCP if condition worsens or does not improve. Orders: Orders SARS-CoV2/FLU/RSV Today R09.89 - Other specified symptoms and signs involving the circulatory and respiratory systems Medications: New prednisone 50 mg PO QAM 5 tabs 0RF azithromycin For 250 mg dose pack: take 500 mg today (day 1), then 250 mg for 4 days (days 2-5) PO 6 tabs 0RF Coding Level of Care Code Est Pt Level 3 (84757) Diagnoses Viral upper respiratory infection J06.9
--- OUTSIDE RECORDS SUMMARY | 2025-05-12 19:46 | XMS_ITS | Patient Health Record ---
Author Organization [facility] Address [address] [place] [id number] Care Team Providers Care Social Work Job Titles Name Role Phone Dangelo FUENTES, Asma Primary Care Provider Carlos De La Cruz Jr Unavailable [phone] Allergies Allergen (clinical drug ingredient) Drug/Non Drug Allergy documented on EMR Reaction Allergy Type Onset Date Status cats (uncoded) Unknown Allergy Activ e Reason For Referral No Information Medications Medication SIG (Take, Route, Frequency, Duration) Notes Start Date End Date Status MiraLax (colon prep) 17 GM/SCOOP mixed with Gatorade or Crystal Light Orally begin at 5:00 p.m. the day before the procedure; Duration: 1 day 04/14/2021 Active Albuterol Sulfate HFA 108 (90 Base) MCG/ACT Inhalation; Duration: 18 Active Immunizations Vaccine Route Administration Date Status Comme [...] Problem Status W/U Status Risk Notes Problem Colon cancer screening (159742927) Colon cancer screening (Z12.11) Active confirmed Problem Epigastric pain (91738078) Epigastric pain (R10.13) Active confirmed Problem History of polyp of colon (situation) (137328977) Personal history of colonic polyps (Z86.010) Active confirmed Problem Pre-procedure evaluation check (894416627) Encounter for other preprocedural examination (Z01.818) Active confirmed Plan Of Treatment Future Test Test Name Order Date COLONOSCOPY 04/14/2021 Insurance Providers Payer Name Payer Address Payer Phone Subscriber Number Group Number Insured Name Patient Relationship to Insured Coverage Start Date Coverage End Date [facility] [address] [address] [place], [place] [id number] LUZ LEVI Self - patient is the insured MEDICAID OF [facility] [address] [place] [address] [id number] LUZ LEVI Self - patient is the insured Medical (General) History Medical History History ICD Code asthma/COPD elevated iron seasonal allergies Arthritis left hip lower back and toe Colonoscopy in 05/2016, sessile serrated adenoma, five-year followup Surgical History Surgery Date(Month/Year) left foot arthroplasty hysterectomy hip left replacement
== END 2025-05-12 16:18 | disposition home or self-care (01) ==
PROVIDERS: PCP Internal Medicine; Visit Provider Physician Assistant
DX: J06.9 Acute upper respiratory infection, unspecified (principal)

== ENCOUNTER 2025-05-19 15:16 | Outpatient (AMB) | payer OTHER, SELFPAY ==
[2025-05-19 15:18] VITALS: BP 128/72; PULSE 70; TEMP 36.8; O2SAT 94; BMI 32.8
--- NOTE | 2025-05-19 15:18 | MHC.OFFWIV ---
Intake Vital Signs 05/19/25 15:18 Height 5 ft Weight 168 lb BMI 32.8 BP 128/72 Blood Pressure Location Rt brachial Position Sitting Pulse 70 Pulse Source Pulse Oximeter Temp 98.2 F Temp Source Oral Pulse Oximetry (%) 94 Oxygen Delivery Method Room Air Intake Visit Reasons: EP loss of voice Intake Note: pt presents with unresolved sinus congestion, laryngitis, chest congestion with coughing, body aches; mostly in neck Patient Tobacco Use Status: Former Tobacco user Allergies Seasonal Allergies Allergy (Intermediate, Verified 05/19/25 15:26) Itchy Eyes shellfish derived (SHELLFISH DERIVED) Allergy (Intermediate, Verified 05/19/25 15:26) HIVES cat dander (CAT) Allergy (Mild, Verified 05/19/25 15:26) PRURITUS, SNEEZING fluticasone (Advair Diskus) Adverse Reaction (Intermediate, Verified 05/19/25 15:26) powder inhalers cause choking salmeterol (Advair Diskus) Adverse Reaction (Intermediate, Verified 05/19/25 15:26) powder inhalers cause choking wixela Adverse Reaction (Intermediate, Uncoded 10/21/24 09:10) powder inhalers cause choking Do you need a note to return to daycare/school/sports/work: No HPI HPI Comments History of Present Illness Details History - The patient is a 64-year-old female presenting with symptoms of a continued upper respiratory infection, loss of voice & wheezing. - The patient has a history of COPD and asthma, with symptoms exacerbated by a recent upper respiratory infection. - Symptoms began approximately two weeks ago with a sore throat, initially thought to be allergies, which resolved, followed by nasal congestion and dyspnea. She was treated with pred burst and zpak with temp relief but continued symptoms. - The patient has a history of oral thrush, suspected to be exacerbated by steroid inhaler use, although no current white coating on the tongue was observed. Denies pain with swallowing. - The patient reports intermittent wheezing, which has been managed with albuterol but she hasn't been using her nebulizer treatments for the last 2 days. she thought that was making her loss of voice worse. Review of Systems - Respiratory: Reports dyspnea and wheezing. Denies cough, hemoptysis. - Oropharyngeal: Denies white coating on the tongue. - General: Denies fever. All systems reviewed and are unremarkable except as noted in HPI Physical Exam General: Cooperative, healthy appearing, comfortable and no acute distress Orientation/consciousness: Patient oriented x3 Limitations: No limitations Head: Normal to inspection Ears: Hearing grossly normal bilaterally, external ears normal, EAC's normal bilaterally, slight redness noted Nose: Normal external nose present, Normal nares present and nasal congestion present Face and sinus: Normal facial exam and sinuses nontender Mouth: Normal oral and palatal mucosa present and moist mucous membranes Throat: tonsils normal, no exudates, uvula midline, posterior oropharynx slight erythema Eyes: Appearance normal, both eyes and all related structures Neck: Normal visual inspection, full ROM Respiratory: Clear to auscultation bilaterally. Normal respiratory effort, able to speak in complete sentences, actively coughing, wheezing present, no respiratory distress, not tachypneic, no tripod positioning and no use of accessory muscles Cardiovascular: Regular rate and rhythm. Normal S1 and S2 Skin: No rashes or lesions noted Neuro: Patient oriented x3 Extremities: Normal to inspection and Yes no clubbing, cyanosis or edema PFSH Medical History Allergies Bacteremia Chronic allergic rhinitis Former smoker Shortness of breath COVID-19 vaccine series completed Post-operative nausea and vomiting Arthritis COPD (chronic obstructive pulmonary disease) Asthma Surgical History Hx of hysterectomy History of total left hip replacement Hx of foot surgery H/O colonoscopy Family History Maternal Aunt Substance use disorder Mental health disorder Social History Household Members: None Housing: Apartment Are you a primary primary care physician to a significant other at home: No Do you presently have visiting nurse or other home services: No Alcohol intake: current Alcohol intake frequency: holidays/special occasions only Patient Tobacco Use Status: Former Tobacco user Tobacco use type: Cigarette e-Cigarette/Vaping Use: Never Used Second Hand Smoke Exposure: Yes (BF vapes in same room) service: No Current occupational status: unemployed Cognitive needs: No Hearing needs: No Vision needs: Yes Physical Exam Vital Signs: Last Vital Signs Temp 98.2 F 05/19/25 15:18 Pulse 70 05/19/25 15:18 BP 128/72 05/19/25 15:18 Pulse Ox 94 05/19/25 15:18 Oxygen Delivery Method Room Air 05/19/25 15:18 BMI result Body Mass Index 32.8 Office Procedures Nebulizer Treatment Nebulizer Treatment 68120-[id number]/MDI RX initial, or Nebulizer Subsequent Treatment Office Meds ipratropium 0.5 mg-albuterol 3 mg (2.5 mg base)/3 mL nebulization soln Performing Provider: Cassidy Olivarez PA-C Performing Location: [facility] Administered by: Cassidy Olivarez PA-C on 05/19/25 16:00 Dose Route Admin Location Dispensed Lot Number Expiration Date [facility] [employer] 3 mL inhalation 3 mL [id number] 08/15/26 23880-801-86 [employer] Assessment & Plan Assessment & Plan (1) Lower respiratory infection (e.g., bronchitis, pneumonia, pneumonitis, pulmonitis): Code(s): J22 - Unspecified acute lower respiratory infection Plan: Plan Patient was informed and verbally consented to the use of an ambient scribe for clinic note documentation during this visit. - VSS, pt well appearing and PE remarkable for exp wheeze, resolved with Duoneb treatment in office.. - Likely viral bronchitis. - Continue current inhaler regimen including budesonide and formoterol. - Restart using albuterol nebulizers Q4-6H, as needed for wheezing as it cleared up your wheeze today, rather than RX'ing steroid again as you were just on a steroid last week. - Symptomatic treatment with Mucinex recommended to prevent progression to pneumonia. - Monitor for symptoms of oral thrush, especially with continued steroid inhaler use. No s/s thrush today. Orders: Orders AMB Nebulizer Treatment Today R06.2 - Wheezing Coding Level of Care Code Est Pt Level 3 (71112) Diagnoses Lower respiratory infection (e.g., bronchitis, pneumonia, pneumonitis, pulmonitis) J22 CPT Codes Nebulizer Treatment - Nebulizer Treatment, initial or subsequent: [id number]-[id number]/MDI RX initial, or Nebulizer Subsequent Treatment ([id number])
--- OUTSIDE RECORDS SUMMARY | 2025-05-19 18:08 | XMS_ITS | Patient Health Record ---
Author Organization [facility] Address [address] [place] [id number] Care Team Providers Care Lawn Technician Name Role Phone Dangelo FUENTES, Asma Primary [...] Status Risk Notes Problem Colon cancer screening (352945438) Colon cancer screening (Z12.11) Active confirmed Problem Epigastric pain (63019179) Epigastric pain (R10.13) Active confirmed Problem History of polyp of colon (situation) (230574889) Personal history of colonic polyps (Z86.010) Active confirmed Problem Pre-procedure evaluation check (824223591) Encounter for other preprocedural examination (Z01.818) Active confirmed Plan Of Treatment Future Test Test Name Order Date COLONOSCOPY 04/14/2021 Insurance Providers Payer Name Payer Address Payer Phone Subscriber Number Group Number Insured Name Patient Relationship to Insured Coverage Start Date Coverage End Date [facility] [address] [address] [place], [place] [id number] LUZ LEVI Self - patient is the insured MEDICAID OF [facility] [address] [place] [address] [id number] LUZ LEVI Self - patient is the insured Medical (General) History Medical History History ICD Code asthma/COPD elevated iron seasonal allergies Arthritis left hip lower back and toe Colonoscopy in 05/2016, sessile serrated adenoma, five-year followup Surgical History Surgery Date(Month/Year) left foot arthroplasty hysterectomy hip left replacement
== END 2025-05-19 16:08 | disposition home or self-care (01) ==
PROVIDERS: PCP Internal Medicine; Visit Provider Physician Assistant
DX: R06.2 Wheezing (principal); J22 Unspecified acute lower respiratory infection

== ENCOUNTER → 2025-05-19 15:16 | Outpatient (BNVA) | payer OTHER, SELFPAY | PROVIDERS: PCP Internal Medicine; Visit Provider Physician Assistant | DX: J44.1 Chronic obstructive pulmonary disease with (acute) exacerbation (principal); J22 Unspecified acute lower respiratory infection; R06.2 Wheezing | CPT/HCPCS: 94640; 99212 ==

== ENCOUNTER 2025-05-29 07:54 | Outpatient (AMB) | payer OTHER, SELFPAY ==
--- OUTSIDE RECORDS SUMMARY | 2025-05-29 07:57 | XMS_ITS | Patient Health Record ---
Author Organization [facility] Address [address] [place] [id number] Care Team Providers Care Rubber And Plastics Worker Name Role Phone Dangelo FUENTES, Asma Primary Care Provider Carlos De La Cruz Jr Unavailable [phone] Allergies Allergen (clinical drug ingredient) Drug/Non [...] Status Risk Notes Problem Colon cancer screening (605651488) Colon cancer screening (Z12.11) Active confirmed Problem Epigastric pain (94900997) Epigastric pain (R10.13) Active confirmed Problem History of polyp of colon (situation) (455568654) Personal history of colonic polyps (Z86.010) Active confirmed Problem Pre-procedure evaluation check (776910971) Encounter for other preprocedural examination (Z01.818) Active confirmed Plan Of Treatment Future Test Test Name Order Date COLONOSCOPY 04/14/2021 Insurance Providers Payer Name Payer Address Payer Phone Subscriber Number Group Number Insured Name Patient Relationship to Insured Coverage Start Date Coverage End Date [facility] [address] [address] [place], [place] [id number] LUZ LEVI Self - patient is the insured MEDICAID OF [facility] [address] [place] [address] [phone] [id number] LUZ LEVI Self - patient is the insured Medical (General) History Medical History History ICD Code asthma/COPD elevated iron seasonal allergies Arthritis left hip lower back and toe Colonoscopy in 05/2016, sessile serrated adenoma, five-year followup Surgical History Surgery Date(Month/Year) left foot arthroplasty hysterectomy hip left replacement
[2025-05-29 08:06] VITALS: BP 130/70; PULSE 84; RESP 16; TEMP 36.8; O2SAT 91; BMI 32.2
--- NOTE | 2025-05-29 08:06 | A.OFFPC_ITS ---
Vital Signs 05/29/25 08:06 Height 5 ft Weight 165 lb BMI 32.2 BP 130/70 Blood Pressure Location Lt brachial Position Sitting Respiration 16 Pulse 84 Pulse Source Pulse Oximeter Temp 98.3 F Temp Source Oral Pulse Oximetry (%) 91 L Oxygen Delivery Method Room Air Intake Visit Reasons: Throat Check Allergies Seasonal Allergies Allergy (Intermediate, Verified 05/19/25 15:26) Itchy Eyes shellfish derived (SHELLFISH DERIVED) Allergy (Intermediate, Verified 05/19/25 15:26) HIVES cat dander (CAT) Allergy (Mild, Verified 05/19/25 15:26) PRURITUS, SNEEZING fluticasone (Advair Diskus) Adverse Reaction (Intermediate, Verified 05/19/25 15:26) powder inhalers cause choking salmeterol (Advair Diskus) Adverse Reaction (Intermediate, Verified 05/19/25 15:26) powder inhalers cause choking wixela Adverse Reaction (Intermediate, Uncoded 10/21/24 09:10) powder inhalers cause choking Medication List - Last Reconciled 05/29/25 by Salome Pierson MD albuterol sulfate 90 mcg/actuation (Ventolin HFA) 2 puffs inhalation QID PRN 30 days budesonide-formoterol 160-4.5 mcg/actuation 2 puffs inhalation BID 30 days diszmeplun-vccjrpso-bdyysuwkcw 160-9-4.8 mcg/actuation (Breztri Aerosphere) 2 inhalations inhalation BID 90 days cetirizine (Zyrtec) 10 mg PO DAILY ipratropium-albuterol 0.5 mg-3 mg(2.5 mg base)/3 mL 3 mL inhalation TID PRN 30 days multivitamin (Daily Multi-Vitamin tablet) 1 tab PO DAILY [nebulizer with supplies As directed] Tobacco use date assessed: 02/07/24 Dental Screening Dental Screen Date: 02/07/24 HPI Throat Check HPI Details History of Present Illness The patient is a 64-year-old female presenting for a follow-up evaluation for an upper respiratory tract infection. Upper Respiratory Tract Infection and COPD/Asthma Exacerbation: - The patient was seen at a walk-in [facility] on May 12 and May 19 for an upper respiratory tract infection which exacerbated her underlying COPD and asthma. - She was initially treated with a predn isone dose pack and a Z-Vikash, which provided temporary relief before symptoms re-emerged. - On May 19, she received a nebuli zer treatment in the clinic, was set up with a home nebulizer, and was instructed to use it every 4-6 hours for wheezing noted during that visit. - She was also advised to take Mucinex f or symptomatic relief of her cough. - She currently sees Dr. Jones, a lmonary specialist, for her COPD management and is on inhalers. She has developed hoarseness of voice which is gradually getting better Oral Thrush: - The patient was found to have oral thr ush on May 12, which had resolved by her visit on May 19, 2025. Ago patient also have a severe chest pain radiating to right side of her jaw and she alsoweating She told her boss who urged her to go to emergency room but patient opted not to go For that reason we did the EKG today which showed normal sinus rhythm no acute findings She is complaining of swelling of her left leg which has happened before but this time it is not getting better Ultrasound of her leg stat ordered Patient is also having pain medial side of her ankle over medial malleolus there is a small bump on examination She will be requiring an x-ray of her ankle today. Diagnostic Results: - Influenza test (05/12): Negative - RSV test (05/12): Negative - COVID test (05/12): Negative Assessment and Plan Patient was instructed to continue with her updraft treatments every 4-6 hour as she has stopped taking them And has not taken any since past 1 week Ultrasound off her left lower leg ordered stat X-ray ordered for left ankle EKG was done which showed no acute findings Patient is to return in 7 days for follow-up appointment 14:00, report of ultrasound leg showed n o DVT an x-ray report also did not showed any acute finding on ankle PFSH Medical History Allergies Bacteremia Chronic allergic rhinitis Former smoker Shortness of breath COVID-19 vaccine series completed Post-operative nausea and vomiting Arthritis COPD (chronic obstructive pulmonary disease) Asthma Surgical History Hx of hysterectomy History of total left hip replacement Hx of foot surgery H/O colonoscopy Family History Maternal Aunt Substance use disorder Mental health disorder Social History Household Members: None Housing: Apartment Are you a primary lawn care professional to a significant other at home: No Do you presently have visiting nurse or other home services: No Alcohol intake: current Alcohol intake frequency: holidays/special occasions only Patient Tobacco Use Status: Former Tobacco user Tobacco use type: Cigarette e-Cigarette/Vaping Use: Never Used Second Hand Smoke Exposure: Yes (BF vapes in same room) service: No Current occupational status: unemployed Cognitive needs: No Hearing needs: No Vision needs: Yes Questionnaire Thrive Questionnaire Date Thrive assessed: 12/19/24 I am a: Patient What is your living situation today?: I have a steady place to live Within the past 12 months, did the food you bought not last and you didn't have the money to get more?: Never true Within the past 12 months, did you worry whether your food would run out before you got money to buy more?: Never true Do you have trouble paying for medicines?: No Do you have trouble getting transportation to medical appointments?: No Do you have trouble paying your heating and electricity bill?: No Do you have trouble taking care of your child, family member or friend?: No Do you have trouble with day-to-day activities such as bathing, preparing meals, shopping, managing finances, etc.?: No Are you currently unemployed and looking for a job?: No Are you interested in more education?: No Please select the resources that you would like help with: None Currently or been in a relationship where the following occur: No concerns reported THRIVE Score: 0 JOHNNIE-7 AMB Questionnaire JOHNNIE-7 Date JOHNNIE - 7 assessed: 02/07/24 Source: Developed by Drs. Ja Lara, Donna Ortiz, Celso Mondragon and colleagues, with an educational juanita from [employer]. Review of Systems Const Denies chills and Denies fever(s) ENT Denies epistaxis and Denies nasal discharge Card Denies chest pain Resp Denies hemoptysis GI Denies diarrhea and Denies nausea Skin/Breast Denies rash Neuro Reports no additional complaints Psych Reports no additional complaints Endo Reports no additional complaints Physical exam (Primary Care) Vital Signs: Last Vital Signs Temp 98.3 F 05/29/25 08:06 Pulse 84 05/29/25 08:06 Resp 16 05/29/25 08:06 BP 130/70 05/29/25 08:06 Pulse Ox 91 L 05/29/25 08:06 Oxygen Delivery Method Room Air 05/29/25 08:06 BMI result Body Mass Index 32.2 Tobacco/Smoking Status: Tobacco use Status Tobacco use date assessed 02/07/24 05/29/25 08:10 Patient Tobacco Use Status Former Tobacco user 05/29/25 08:10 Tobacco use type Cigarette 05/29/25 08:10 e-Cigarette/Vaping Use Never Used 05/29/25 08:10 Thrive Assessment: Date of Thrive Assessment Date Thrive assessed 12/19/24 05/29/25 08:10 Currently or been in a relationship where the following occur: No concerns reported Const Other: Hoarseness of voice present but able to talk General: cooperative, comfortable and no acute distress Orientation/consciousness: patient oriented x3 HENMT Head: Yes normocephalic Eyes General: appearance normal, both eyes and all related structures Neck Neck: Yes supple Chest Other: Mild wheezing still present but air entry is good Resp Effort & Inspection: normal respiratory effort and no stridor Cardio Rhythm: regular rhythm Heart sounds: S1 normal heart sound present and S2 normal heart sound present Skin General skin exam: turgor normal Neuro General: patient oriented x3, tone normal and moves all extremities Extrem Other: Left lower leg swelling noted, no pain with the calf pressure, medial malleolus with the tuberosity painful to pressure unable to extend her foot without pain over that area, skin pink vascular intact sensory intact Right lower extremity: no edema Office Procedures EKG 11815-[id number], Complete Coding Level of Care Code Est Pt Level 5 (74478) Diagnoses Other chest pain R07.89 Chest pain type: other chest pain Swelling of left lower extremity M79.89 Acute left ankle pain M25.572 Chronicity: acute Asthma exacerbation in COPD J44.1; J45.901 Hoarseness of voice R49.0 CPT Codes EKG - CPT: 29540-[id number], Complete ([id number]) Time Spent (min) 41 Comment Reviewing chart/pqdp-mz-idbm with the patient/coordination of care/imaging Assessment & Plan Assessment & Plan (1) Chest pain: Code(s): R07.9 - Chest pain, unspecified Category: Medical Qualifiers: Chest pain type: other chest pain Qualified Code(s): R07.89 - Other chest pain (2) Swelling of left lower extremity: Code(s): M79.89 - Other specified soft tissue disorders Category: Medical (3) Ankle pain, left: Code(s): M25.572 - Pain in left ankle and joints of left foot Category: Medical Qualifiers: Chronicity: acute Qualified Code(s): M25.572 - Pain in left ankle and joints of left foot (4) Asthma exacerbation in COPD: Code(s): J44.1 - Chronic obstructive pulmonary disease with (acute) exacerbation; J45.901 - Unspecified asthma with (acute) exacerbation Category: Medical (5) Hoarseness of voice: Code(s): R49.0 - Dysphonia Category: Medical Plan History of Present Illness The patient is a 64-year-old female presenting for a follow-up evaluation for an upper respiratory tract infection. Upper Respiratory Tract Infection and COPD/Asthma Exacerbation: - The patient was seen at a walk-in clinic on May 12 and May 19 for an upper respiratory tract infection which exacerbated her underlying COPD and asthma. - She was initially treated with a prednisone dose pack and a Z-Vikash, which provided temporary relief before symptoms re-emerged. - On May 19, she received a nebulizer treatment in the clinic, was set up with a home nebulizer, and was instructed to use it every 4-6 hours for wheezing noted during that visit. - She was also advised to take Mucinex for symptomatic relief of her cough. - She currently sees Dr. Jones, a sports specialist, for her COPD management and is on inhalers. She has developed hoarseness of voice which is gradually getting better Oral Thrush: - The patient was found to have oral thrush on May 12, which had resolved by her visit on May 19, 2025. Ago patient also have a severe chest pain radiating to right side of her jaw and she alsoweating She told her boss who urged her to go to emergency room but patient opted not to go For that reason we did the EKG today which showed normal sinus rhythm no acute findings She is complaining of swelling of her left leg which has happened before but this time it is not getting better Ultrasound of her leg stat ordered Patient is also having pain medial side of her ankle over medial malleolus there is a small bump on examination She will be requiring an x-ray of her ankle today. Diagnostic Results: - Influenza test (05/12): Negative - RSV test (05/12): Negative - COVID test (05/12): Negative Assessment and Plan Patient was instructed to continue with her updraft treatments every 4-6 hour as she has stopped taking them And has not taken any since past 1 week Ultrasound off her left lower leg ordered stat X-ray ordered for left ankle EKG was done which showed no acute findings Patient is to return in 7 days for follow-up appointment 14:00, report of ultrasound leg showed no DVT an x-ray report also did not showed any acute finding on ankle Orders: Orders US venous duplex LE LT Today M79.89 - Other specified soft tissue disorders
== END 2025-05-29 08:49 | disposition home or self-care (01) ==
LOC: HO.HMCC 07:54
PROVIDERS: PCP Internal Medicine; Visit Provider Internal Medicine
DX: R07.89 Other chest pain (principal); M79.89 Other specified soft tissue disorders; M25.572 Pain in left ankle and joints of left foot; J44.1 Chronic obstructive pulmonary disease with (acute) exacerbation; J45.901 Unspecified asthma with (acute) exacerbation; R49.0 Dysphonia

== ENCOUNTER 2025-05-29 08:42 | Outpatient (REF) | payer OTHER, SELFPAY ==
--- NOTE | ~2025-05-29 | US_ITS ---
EXAMINATION: US TRIPLEX LOWER EXTREMITY, LEFT CLINICAL INFORMATION: Edema, left lower extremity. COMPARISON: None available. TECHNIQUE: Color-flow triplex imaging with spectral analysis and compression Doppler were performed on the left lower extremity. FINDINGS: Respiratory variation, normal compression and augmented flow are demonstrated in the left common femoral vein, superficial femoral vein, profunda femoral vein, popliteal vein and midcalf peroneal and posterior tibial venous segments. There is no Hightower's cyst. US/US venous duplex LE IMPRESSION: No acute deep venous thrombosis interrogated veins, left lower extremity. Negative for DVT. Electronically signed by: Jonnie aPrry MD 05/29/2025 09:47 AM EST
--- NOTE | ~2025-05-29 | XR_ITS ---
EXAMINATION: XR ANKLE, LEFT CLINICAL INFORMATION: M25.572 - Pain in left ankle and joints of left foot COMPARISON: None available. TECHNIQUE: AP, lateral, and mortise views of the left ankle. FINDINGS: No acute cortical disruption or malalignment. No lytic or blastic lesions. No subcutaneous emphysema. No joint effusion. No metallic or radiopaque foreign body. Small plantar calcaneal spur. 6 mm well-corticated calcification in the plantar surface of the talar region. XR/XR ankle LT min 3V IMPRESSION: No acute fracture or dislocation. Electronically signed by: Jonnie Parry MD 05/29/2025 09:49 AM EST
== END 2025-05-29 08:43 | disposition home or self-care (01) ==
LOC: HO.HMGCX 08:42
PROVIDERS: PCP Internal Medicine; Visit Provider Internal Medicine
DX: M79.89 Other specified soft tissue disorders (principal); M25.572 Pain in left ankle and joints of left foot; R07.89 Other chest pain; J44.1 Chronic obstructive pulmonary disease with (acute) exacerbation; J45.901 Unspecified asthma with (acute) exacerbation; R49.0 Dysphonia; Z79.899 Other long term (current) drug therapy
CPT/HCPCS: 73610; 93005; 93971; 99212

== ENCOUNTER → 2025-05-29 09:16 | Outpatient (BNV) | payer OTHER, SELFPAY | PROVIDERS: PCP Internal Medicine; Visit Provider Radiology Diagnostic Radiology | DX: R22.42 Localized swelling, mass and lump, left lower limb (principal); M25.572 Pain in left ankle and joints of left foot | CPT/HCPCS: 73610; 93971 ==

== ENCOUNTER 2025-06-05 11:19 | Outpatient (AMB) | payer OTHER, SELFPAY ==
--- NOTE | 2025-06-05 11:22 | A.OFFPC_ITS ---
Vital Signs 06/05/25 11:24 Height 5 ft Weight 167 lb BMI 32.6 BP 122/70 Blood Pressure Location Lt brachial Position Sitting Pulse 74 Pulse Source Pulse Oximeter Pulse Oximetry (%) 94 Intake Visit Reasons: 7 days f/up Allergies Seasonal Allergies Allergy (Intermediate, Verified 06/05/25 11:25) Itchy Eyes shellfish derived (SHELLFISH DERIVED) Allergy (Intermediate, Verified 06/05/25 11:25) HIVES cat dander (CAT) Allergy (Mild, Verified 06/05/25 11:25) PRURITUS, SNEEZING fluticasone (Advair Diskus) Adverse Reaction (Intermediate, Verified 06/05/25 11:25) powder inhalers cause choking salmeterol (Advair Diskus) Adverse Reaction (Intermediate, Verified 06/05/25 11:25) powder inhalers cause choking wixela Adverse Reaction (Intermediate, Uncoded 10/21/24 09:10) powder inhalers cause choking Medication List - Last Reconciled 06/05/25 by Salome Pierson MD albuterol sulfate 90 mcg/actuation (Ventolin HFA) 2 puffs inhalation QID PRN 30 days budesonide-formoterol 160-4.5 mcg/actuation 2 puffs inhalation BID 30 days rjueqrqpqb-jtvpxlqo-iublpgyrkf 160-9-4.8 mcg/actuation (Breztri Aerosphere) 2 inhalations inhalation BID 90 days cetirizine (Zyrtec) 10 mg PO DAILY ipratropium-albuterol 0.5 mg-3 mg(2.5 mg base)/3 mL 3 mL inhalation TID PRN 30 days multivitamin (Daily Multi-Vitamin tablet) 1 tab PO DAILY [nebulizer with supplies As directed] Tobacco use date assessed: 06/05/25 Dental Screening Dental Screen Date: 06/05/25 Did you have a dental visit in the last 12 months?: Yes Did you have a dental problem in the last 6 months where you did not have access to dental care?: No Was dental information given to patient?: Patient has dentist HPI HPI Comments History of Present Illness Details History of Present Illness The patient is a 64 year old individual presenting with follow-up on left leg swelling, and persistent hoarseness. Laryngitis: - The patient has had hoarseness for alannah ost three weeks, which started when the patient became ill. - The patient feels the voice is improvi ng but notes it is gone by the end of the day due to occupational voice strain from working in sales. - The patient reports an inability to hu m. - Associated symptoms include a morning cough, which is managed with cetirizine. - The patient recently completed a five- day course of prednisone 50 mg for congestion. Left ankle pain and edema: - The patient presents with new-onset le ft leg swelling and a rash that has worsened. - A recent ultrasound of the leg was neg ative for a blood clot. - The patient experiences pain upon forw mitali flexion of the foot . - The patient does not recall a specific recent injury but acknowledges fr equently losing balance and straining the ankle. - The patient has been using alternating cold and hot applications on the area. Medical History: - Asthma, managed with Breztri and albut daija nebulizer. - Allergic rhinitis, managed with cetiri zine. Social History: - Employment: The patient works in sales , which requires frequent talking. - Exercise: The patient no longer goes f or long walks and has recently started private, non-standing exercise sessions. - Functional Status: The patient's activ ity level at work varies, involving prolonged periods of either sitting or standing. Diagnostic Results: - Imaging: A recent ultrasound of the le g was negative for deep vein thrombosis. [facility] Medical History Allergies Bacteremia Chronic allergic rhinitis Former smoker Shortness of breath COVID-19 vaccine series completed Post-operative nausea and vomiting Arthritis COPD (chronic obstructive pulmonary disease) Asthma Surgical History Hx of hysterectomy History of total left hip replacement Hx of foot surgery H/O colonoscopy Family History Maternal Aunt Substance use disorder Mental health disorder Social History Household Members: None Housing: Apartment Are you a primary animal caregiver to a significant other at home: No Do you presently have visiting nurse or other home services: No Alcohol intake: current Alcohol intake frequency: holidays/special occasions only Patient Tobacco Use Status: Former Tobacco user Tobacco use type: Cigarette e-Cigarette/Vaping Use: Never Used Second Hand Smoke Exposure: Yes (BF vapes in same room) service: No Current occupational status: unemployed Cognitive needs: No Hearing needs: No Vision needs: Yes Questionnaire Thrive Questionnaire Date Thrive assessed: 12/19/24 I am a: Patient What is your living situation today?: I have a steady place to live Within the past 12 months, did the food you bought not last and you didn't have the money to get more?: Never true Within the past 12 months, did you worry whether your food would run out before you got money to buy more?: Never true Do you have trouble paying for medicines?: No Do you have trouble getting transportation to medical appointments?: No Do you have trouble paying your heating and electricity bill?: No Do you have trouble taking care of your child, family member or friend?: No Do you have trouble with day-to-day activities such as bathing, preparing meals, shopping, managing finances, etc.?: No Are you currently unemployed and looking for a job?: No Are you interested in more education?: No Please select the resources that you would like help with: None Currently or been in a relationship where the following occur: No concerns reported THRIVE Score: 0 JOHNNIE-7 AMB Questionnaire JOHNNIE-7 Date JOHNNIE - 7 assessed: 06/05/25 Feeling nervous, anxious, or on edge: 0 = Not at all Not being able to stop or control worryin = Not at all Worrying too much about different things: 0 = Not at all Trouble relaxin = Not at all Being so restless that it is hard to sit still: 0 = Not at all Becoming easily annoyed or irritable: 3 = Nearly every day Feeling afraid as if something awful might happen: 0 = Not at all Total JOHNNIE-7 score (0-4 normal; 5-9 mild; 10-14 moderate; 15-21 severe): 3 Source: Developed by Drs. Ja Lara, Donna Ortiz, Celso Mondragon and colleagues, with an educational juanita from [employer] JOHNNIE-7 Assessment Billing JOHNNIE-7 Assessment Tool: JOHNNIE-7 Assessment 98541 Review of Systems Narrative Review of Systems - General: No fever no chills - Neurological: No headaches no dizziness - Ear nose throat: No sore throat no hearing difficulty no ear pain - Cardiovascular: No syncope, no chest pain, no palpitations - Gastrointestinal: No nausea vomiting or diarrhea - Endocrine: No polyuria polydipsia no heat intolerance - Genitourinary: No dysuria , no blood in urine Physical exam (Primary Care) Vital Signs: Last Vital Signs Pulse 74 06/05/25 11:24 BP 122/70 06/05/25 11:24 Pulse Ox 94 06/05/25 11:24 BMI result Body Mass Index 32.6 Tobacco/Smoking Status: Tobacco use Status Tobacco use date assessed 06/05/25 06/05/25 11:27 Patient Tobacco Use Status Former Tobacco user 06/05/25 11:23 Tobacco use type Cigarette 06/05/25 11:23 e-Cigarette/Vaping Use Never Used 06/05/25 11:23 Thrive Assessment: Date of Thrive Assessment Date Thrive assessed 12/19/24 06/05/25 11:23 Currently or been in a relationship where the following occur: No concerns reported Narrative Physical Exam General: No acute distress HEENT: No acute findings Neck: Supple Respiratory system: Able to talk in full sentences, no audible wheeze, cough in the morning Cardiovascular: S1-S2 regular in rate and rhythm Gastrointestinal: No pain Extremities: swelling on the left ankle, lateral malleolus swelling, possible ankle sprain BUSINESS INTELLIGENCE REPORTING ANALYST: Alert awake oriented x3 motor intact Skin: Rash present, normal turgor Coding Level of Care Code Est Pt Level 3 (30521) Diagnoses Swelling of left lower extremity M79.89 Acute left ankle pain M25.572 Chronicity: acute Hoarseness of voice R49.0 Additional Codes JOHNNIE-7 Assessment Billing - JOHNNIE-7 Assessment Tool: JOHNNIE-7 Assessment 06009 ([id number]) Assessment & Plan Assessment & Plan (1) Swelling of left lower extremity: Code(s): M79.89 - Other specified soft tissue disorders Category: Medical (2) Ankle pain, left: Code(s): M25.572 - Pain in left ankle and joints of left foot Category: Medical Qualifiers: Chronicity: acute Qualified Code(s): M25.572 - Pain in left ankle and joints of left foot (3) Hoarseness of voice: Code(s): R49.0 - Dysphonia Category: Medical Plan Problem List - Laryngitis - Left ankle pain and edema - Asthma Plan - Laryngitis: Monitor voice for the next three weeks. If hoarseness persists after three weeks, a referral to an ENT specialist will be provided to evaluate for potential vocal cord polyps. - Left Ankle: The patient has elected to wait and monitor the ankle symptoms. The patient will continue with private exercise sessions, focusing on upper body and avoiding standing exercises. - Asthma: A prescription for Albuterol nebulizer solution has been sent to the pharmacy. - Follow-up: The patient will provide an update on both the voice and ankle in about three weeks via a patient portal message. - Follow-up: The patient should check on scheduling a future appointment with Dr. Jones. Medications: Refilled ipratropium-albuterol 0.5 mg-3 mg(2.5 mg base)/3 mL 3 mL inhalation TID PRN 90 mL 6RF wheezing 30 days albuterol sulfate 90 mcg/actuation (Ventolin HFA) 2 puffs inhalation QID PRN 18 grams 0RF shortness of breath or wheezing 30 days
[2025-06-05 11:24] VITALS: BP 122/70; PULSE 74; O2SAT 94; BMI 32.6
--- OUTSIDE RECORDS SUMMARY | 2025-06-05 12:12 | XMS_ITS | Patient Health Record ---
Author Organization [facility] Address [address] [place] [id number] Care Team Providers Care Team Primary Care Physician Name Role Phone Dangelo FUENTES, Asma Primary Care Provider Carlos De La Cruz Jr Unavailable Allergies Allergen (clinical drug ingredient) Drug/Non Drug Allergy documented on EMR Reaction Allergy Type Onset Date Status cats (uncoded) Unknown Allergy Activ e Reason For Referral No Information Medications Medication SIG (Take, Route, Frequency, Duration) Notes Start Date End Date Status MiraLax (colon prep) 17 GM/SCOOP Powder mixed with Gatorade or Crystal Light Orally begin at 5:00 p.m. the day before the procedure; Duration: 1 day 04/14/2021 Active Albuterol Sulfate HFA 108 (90 Base) MCG/ACT Aerosol Solution Inhalation; Duration: 18 Act lydia Immunizations Vaccine Route Administration Date Status Comme nts Influenza Unknown 04/14/2021 Refused Social History Tobacco Use: Social History Observation Description Date Details (start date - stop date) Former Smoker NA - NA Social History Drugs/Alcohol: Social Info Question Answer Notes Alcohol Screen Did you have a drink containing alcohol in the past year? Yes How often did you have a drink containing alcohol in the past year? Monthly or less (1 point) How many drinks did you have on a typical day when you were drinking in the past year? 1 or 2 drinks (0 point) How often did you have 6 or more drinks on one occasion in the past year? Never (0 point) Points 1 Interpretation Negative Tobacco Use: Social Info Question Answer Notes Tobacco Use/Smoking Patient is a former smoker How long has it been since you last smoked? 5-10 years Additional Details Category Social Info Options Details Miscellaneous: Marital status: Occupation: sales Problems Problem Type SNOMED Code ICD Code Onset Dates Problem Status W/U Status Risk Notes Problem Colon cancer screening (555097372) Colon cancer screening (Z12.11) Active confirmed Problem Epigastric pain (31306114) Epigastric pain (R10.13) Active confirmed Problem History of polyp of colon (situation) (529071098) Personal history of colonic polyps (Z86.010) Active confirmed Problem Pre-procedure evaluation check (744515250) Encounter for other preprocedural examination (Z01.818) Active confirmed Plan Of Treatment Future Test Test Name Order Date COLONOSCOPY 04/14/2021 Insurance Providers Payer Name Payer Address Payer Phone Subscriber Number Group Number Insured Name Patient Relationship to Insured Coverage Start Date Coverage End Date [facility] [address] [address] [place], [place] [phone] [id number] LUZ LEVI Self - patient is the insured MEDICAID OF [facility] [address] [place] [address] [id number] LUZ LEVI Self - patient is the insured Medical (General) History Medical History History ICD Code asthma/COPD elevated iron seasonal allergies Arthritis left hip lower back and toe Colonoscopy in 05/2016, sessile serrated adenoma, five-year followup Surgical History Surgery Date(Month/Year) left foot arthroplasty hysterectomy hip left replacement
== END 2025-06-05 13:13 | disposition home or self-care (01) ==
LOC: HO.HMCC 11:20
PROVIDERS: PCP Internal Medicine; Visit Provider Internal Medicine
DX: M79.89 Other specified soft tissue disorders (principal); M25.572 Pain in left ankle and joints of left foot; R49.0 Dysphonia

== ENCOUNTER → 2025-06-05 11:19 | Outpatient (BNVA) | payer OTHER, SELFPAY | PROVIDERS: PCP Internal Medicine; Visit Provider Internal Medicine | DX: J04.0 Acute laryngitis (principal); M25.572 Pain in left ankle and joints of left foot; R60.9 Edema, unspecified; M79.89 Other specified soft tissue disorders; R21 Rash and other nonspecific skin eruption; R49.0 Dysphonia | CPT/HCPCS: 96127; 99212 ==